=== PATIENT | male | born 1935 | race Two or more races ===

== ENCOUNTER 2023-02-15 13:15 | Emergency (ER) | payer OTHER ==
[~2023-02-15] VITALS: Ht 170.2 cm; Wt 68.1 kg
[2023-02-15 13:30] VITALS: BP_DIAS 79
[2023-02-15 16:38] VITALS: BP_SYST 109; PULSE 76; RESP 18; TEMP 98; O2SAT 97
[2023-02-15] MEDS ORDERED: CEPH250C PO ×2 (16:40)
[2023-02-15] MEDS ORDERED: HYDR-4902 PO ×2 (16:40)
[2023-02-16] MEDS ORDERED: CEPH250C PO (15:18)
[2023-02-16] MEDS ORDERED: HYDR-4902 PO (15:18)
== END 2023-02-15 16:53 | disposition home or self-care (01) ==
LOC: EDBD 13:15 → ER 13:15
DX: G57.93 Unspecified mononeuropathy of bilateral lower limbs (principal); L08.9 Local infection of the skin and subcutaneous tissue, unspecified; I10 Essential (primary) hypertension

== ENCOUNTER 2024-06-22 08:26 | Inpatient (IN) | payer OTHER ==
[~2024-06-22] VITALS: Ht 182.9 cm; Wt 72.4 kg
[~2024-06-22 08:26] MED LIST: CEPH250C PO; ENAL1TAB47 PO; HYDR-4798 PO; HYDR-4902 PO; TRIA37.586 PO
[2024-06-22 09:14] VITALS: PULSE 71; RESP 16; O2SAT 96
[2024-06-22] MEDS: cefTRIAXone 1GM/50ML D5W 50 ML IV ONE (09:45)
[2024-06-22] MEDS: SODIUM CHLORIDE 0.9% 1,000 ML IV ONE ×2 (09:45→11:01)
--- NOTE | 2024-06-22 10:00 | ED.PDOC ---
History of Present Illness HPI Comments 88M BIBA w/ prior MHx of HTN, MS; SHx of Stents and the c/c of Right LE. Pt reports that he fell on Monday abd had trauma on his right LE. Pt started to get right lower extremity swelling and redness. Denies chills, fever, N/V/D, SOB, CP. No other associated symptoms, modifiers, recent injuries or sick contacts present at this time. Chief Complaint: Lower Extremity Time Seen by MD: 09:20 Reviewed Notes: Nurses Notes, Medications, Allergies Allergies: Coded Allergies: NO KNOWN ALLERGIES (Unverified , 02/15/23) Home Meds Active Scripts Cephalexin (KEFLEX CAPSULE) 250 Mg Cp, 1 CAP PO QID for 7 Days, #28 CAP Prov:JALYN MIDDLETON PAC 02/16/23 Hydrocodone-Acetaminophen (Hydrocodone Bitartrate/AC 5-325 mg) 1 Tab Tab, 1 TAB PO Q6HP PRN, #20 TAB Prov:JALYN MIDDLETON PAC 02/16/23 Reported Medications Enalapril Maleate (Enalapril Maleate) 10 Mg Tab, 1 TAB PO DAILY 06/22/24 Allopurinol (Allopurinol) 100 Mg Tab, 1 TAB PO DAILY 06/22/24 Atorvastatin Calcium (ATORVASTATIN CALCIUM) 40 Mg Tab, 1 TAB PO DAILY 06/22/24 Valsartan (Valsartan) 320 Mg Tab, 1 TAB PO DAILY 06/22/24 Metoprolol Tartrate (LOPRESSOR TABLET) 50 Mg Tb, 1 TAB PO BID 06/22/24 Information Source: Patient Mode of Arrival: EMS Severity: Moderate Timing: Weeks Duration: Since onset Prehospital treatment: None Past Medical History PAST MEDICAL HISTORY: HTN, MS Surgical History (Other): Stents Family History Family History: Reviewed,noncontributory to illness, Unknown Social History Smoker: Non-Smoker Alcohol: Denies ETOH Use Drugs: Denies Drug Use Lives In: Home Constitutional: reports: others (Right LE Swelling/redness); denies: chills, diaphoresis, fatigue, fever, malaise, sweats, weakness EENTM: denies: blurred vision, double vision, ear bleeding, ear discharge, ear drainage, ear pain, ear ringing, eye pain, eye redness, hearing loss, mouth pain, mouth swelling, nasal discharge, nose bleeding, nose congestion, nose pain, photophobia, tearing, throat pain, throat swelling, voice changes, others Respiratory: denies: cough, hemoptysis, orthopnea, SOB at rest, shortness of breath, SOB with excertion, stridor, wheezing, others Cardiovascular: denies: chest pain, dizzy spells, diaphoresis, Dyspnea on exertion, edema, irregular heart beat, left arm pain, lightheadedness, palpitations, PND, syncope, others Gastrointestinal: denies: abdomen distended, abdominal pain, blood streaked bowels, constipated, diarrhea, dysphagia, difficulty swallowing, hematemesis, melena, nausea, poor appetite, poor fluid intake, rectal bleeding, rectal pain, vomiting, others Genitourinary: denies: burning, dysuria, flank pain, frequency, hematuria, incontinence, penile discharge, penile sore, pain, testicle pain, testicle swelling, urgency, others Neurological: denies: dizziness, fainting, headache, left sided numbness, left sided weakness, numbness, paresthesia, pre-existing deficit, right sided numbness, right sided weakness, seizure, speech problems, tingling, tremors, weakness, others Musculoskeletal: denies: back pain, gout, joint pain, joint swelling, muscle pain, muscle stiffness, neck pain, others Integumetry: denies: bruises, change in color, change in hair/nails, dryness, laceration, lesions, lumps, rash, wounds, others Allergic/Immunocompromised: denies: Difficulty Healing, Frequent Infections, Hives, Itching, others Hematologic/Lymphatic: denies: anemia, blood clots, easy bleeding, easy bruising, swollen glands, others Endocrine: denies: excessive hunger, excessive sweating, excessive thirst, excessive urination, flushing, intolerance to cold, intolerance to heat, unexplained weight gain, unexplained weight loss, others Psychiatric: denies: anxiety, bipolar disorder, depression, hopeless, panic disorder, schizophrenia, sleepless, suicidal, others All Other Systems: Reviewed and Negative Physical Exam General Appearance: Moderate Distress, Normal HEENT: Normal ENT Inspection, Pharynx Normal, TMs Normal Neck: Full Range of Motion, Non-Tender, Normal, Normal Inspection Respiratory: Chest Non-Tender, Lungs Clear, No Accessory Muscle Use, No Respi ratory Distress, Normal Breath Sounds Cardiovascular: No Edema, No JVD, No Murmur, No Gallop, Normal Peripheral Pulses, Regular Rate/Rhythm Breast Exam: Deferred Gastrointestinal: No Organomegaly, Non Tender, No Pulsatile Mass, Normal Bowel Sounds, Soft Genitalia: Deferred Pelvic: Deferred Rectal: Deferred Extremities: No calf tenderness, Normal capillary refill, Normal inspection, Normal range of motion, Non-tender, No pedal edema Musculoskeletal : Apperance: Normal Neurologic: Alert, label stamper II-XII nml as Tested, No Motor Deficits, Normal Affect, Normal Mood, No Sensory Deficits Cerebellar Function: NOT DONE Reflexes: NOT DONE Skin: Dry, Normal Color, Warm, Wounds (Right lower extremity) Peripheral Pulses: 3+ Radial (R), 3+ Radial (L) Lymphatic: No Adenopathy Was a procedure done? Was a procedure done?: No Differential Dx Considerations may include: Cellulitis Electrolyte imbalance X-Ray, Labs, Meds, VS Vital Signs Date Time Temp Pulse Resp B/P (MAP) Pulse Ox O2 Delivery O2 Flow Rate FiO2 06/22/24 11:01 194/65 06/22/24 10:16 70 16 184/64 06/22/24 09:14 98.1 71 16 160/79 (106) 96 98.1 06/22/24 09:14 71 16 96 Room Air* 0 21 06/22/24 09:14 75 06/22/24 08:59 97.6 73 16 198/75 (116) 95 97.6 Lab Test 06/22/24 09:50 Range/Units White Blood Count 10.7 4.4-10.8 10^3/uL Red Blood Count 4.43 L 4.5-5.90 10^6/uL Hemoglobin 12.9 L 13.5-17.5 g/dL Hematocrit 38.2 L 41.0-53.0 % Mean Corpuscular Volume 86.2 80.0-100.0 fL Mean Corpuscular Hemoglobin 29.0 28.0-32.0 pg Mean Corpuscular Hemoglobin Concent 33.7 32.0-36.0 g/dL Red Cell Distribution Width 15.1 H 11.8-14.3 % Platelet Count 176 140-450 10^3/uL Mean Platelet Volume 8.9 6.9-10.8 fL Neutrophils (%) (Auto) 83.0 H 37.0-80.0 % Lymphocytes (%) (Auto) 7.3 L 10.0-50.0 % Monocytes (%) (Auto) 8.8 0.0-12.0 % Eosinophils (%) (Auto) 0.2 0.0-7.0 % Basophils (%) (Auto) 0.7 0.0-2.0 % Neutrophils # (Auto) 8.9 H 1.6-8.6 10 ^3/uL Lymphocytes # (Auto) 0.8 0.4-5.4 10 ^3/uL Monocytes # (Auto) 0.9 0-1.3 10 ^3/uL Eosinophils # (Auto) 0 0-0.8 10 ^3/uL Basophils # (Auto) 0.1 0-0.2 10 ^3/uL Nucleated Red Blood Cells 0.0 % Erythrocyte Sedimentation Rate 11 0-20 mm/hr Sodium Level 143 136-145 mmol/L Potassium Level 3.6 3.5-5.1 mmol/L Chloride Level 109 H 98-107 mmol/L Carbon Dioxide Level 23 20-31 mmol/L Anion Gap 11 5-15 Blood Urea Nitrogen 18 9-23 mg/dL Creatinine 1.30 0.700-1.30 mg/dL Glomerular Filtration Rate Calc 53 >90 mL/min BUN/Creatinine Ratio 13.8 10.0-20.0 Serum Glucose 114 H 74-106 mg/dL Lactic Acid Level 1.1 0.4-2.0 mmol/L Calcium Level 10.8 H 8.7-10.4 mg/dL C-Reactive Protein High Sensitivity 7.41 H <1.0 mg/dL Current Medications Medications (Trade) Dose Ordered Sig/Armando Route Start Time Stop Time Status Last Admin Ceftriaxone Sodium 50 ml @ 100 mls/hr ONCE ONCE IV 06/22/24 09:45 06/22/24 10:14 DC 06/22/24 09:58 Clindamycin Phosphate 50 ml @ 50 mls/hr ONCE ONCE IV 06/22/24 09:45 06/22/24 10:44 DC 06/22/24 11:01 Sodium Chloride 1,000 ml @ 1,000 mls/hr Q1H ONCE IV 06/22/24 09:45 06/22/24 10:44 DC 06/22/24 09:45 Sodium Chloride 1,000 ml @ 150 mls/hr Q6H40M ONCE IV 06/22/24 09:45 06/22/24 16:24 06/22/24 11:01 Morphine Sulfate 4 mg ONCE ONCE IV 06/22/24 10:00 06/22/24 10:01 DC 06/22/24 10:16 Ondansetron HCl (Zofran) 4 mg ONCE ONCE IV 06/22/24 10:00 06/22/24 10:01 DC 06/22/24 10:15 Hydralazine HCl (Apresoline Injection) 10 mg ONCE ONCE IV 06/22/24 10:45 06/22/24 10:46 DC 06/22/24 11:01 PROCEDURE(s): RFOR - R FOREARM XRAY REASON: s/p fall pain ORDER NUMBER(s): [id number], ACCESSION NUMBER(s): [id number] XY R FOREARM XRAY, INDICATION: s/p fall pain TECHNICAL DATA: Frontal and lateral views were obtained of the right forearm. COMPARISON: None FINDINGS: There is no osseous abnormality. Soft tissues are normal. IMPRESSION: No acute fracture or dislocation. EDURE(s): BLDVT - BiLat Lower DVT REASON: le pain ORDER NUMBER(s): [id number], ACCESSION NUMBER(s): [id number] US BiLat Lower DVT HISTORY: le pain COMPARISON: None TECHNIQUE: Duplex doppler evaluation of the deep venous system of the lower extremity from the common femoral veins, superficial femoral vein, great saphenous vein, deep femoral vein, popliteal vein, and calf veins, including color doppler and spectral/pulsed waveform analysis, was performed. FINDINGS: Right: - Common femoral vein: Compressible - Deep femoral vein: Compressible - Femoral vein: Compressible - Popliteal vein: Compressible - Posterior tibial vein: Waveforms present - Other: Nothing Left: - Common femoral vein: Compressible - Deep femoral vein: Compressible - Femoral vein: Compressible - Popliteal vein: Compressible - Posterior tibial vein: Waveforms present - Other: Nothing IMPRESSION: No right or left lower extremity deep venous thrombosis. EDURE(s): CXR1 - CHEST XRAY 1 VIEW REASON: right rib pain ORDER NUMBER(s): [id number], ACCESSION NUMBER(s): [id number] XY CHEST XRAY 1 VIEW, HISTORY: right rib pain COMPARISON: None None TECHNICAL DATA: 1 view of the chest was obtained. FINDINGS: Lines and tubes: None Cardiomediastinal silhouette: normal Pulmonary vasculature: Prominent Lung expansion: normal Lung airspace: normal Lung interstitium: normal Pleura: normal Pneumothorax: no Bones: Unremarkable Other: no IMPRESSION: Pulmonary vascular congestion. Patient alert. Does have redness of right lower extremity. Vitals stable. Answering all questions. EKG reviewed does not show any acute changes. Establish intravenous access. Was given fluids. Was given Rocephin. Was given clindamycin. Was given morphine for the pain. Was given Zofran. Calcium slightly high. Lactic acid within normal limits. WBC within normal limits. Blood pressure elevated. Was given hydralazine. Reviewed his history. Explained to the patient. Continue monitoring. Time of 1ST Reevaluation: 09:50 Reevaluation 1ST: Unchanged Patient Education/Counseling: Diagnosis, Treatment, Prognosis Family Education/Counseling: No Family Present Departure 1 Departure Time of Disposition: 10:29 Impression: Primary Impression: Hypertensive emergency Additional Impressions: Cellulitis Qualified Codes: L03.115 - Cellulitis of right lower limb Hypercalcemia Disposition: ADMITTED INPATIENT Admit to: Med Surg Condition: Guarded Critical Care Note Critical Care Time?: Yes (90 min-critical care time only) Critical care comment: Blood pressure elevated wound to be monitored for sepsis Stability Stability form required: No Heart Score Heart Score: Heart Score Response (Comments) Value History Slightly Suspicious 0 EKG Normal 0 Age >65 2 Risk Factors >3 or Hx ASHD 2 Troponin Normal limit 0 Total 4 I personally scribed for DUYEN HARRIS MD ([email or web address]) on 06/22/24 at 10:00. Electronically submitted by Danie Deras ([email or web address]). I personally scribed for DUYEN HARRIS MD ([email or web address]) on 06/22/24 at 13:28. Electronically submitted by Danie Deras ([email or web address]). DUYEN HARRIS MD June 22, 2024 10:00
[2024-06-22 10:10] LABS: Potassium 3.6 mmol/L (3.5-5.1); Sodium 143 mmol/L (136-145)
[2024-06-22 10:11] LABS: Anion Gap 11 (5-15); Carbon Dioxide 23 mmol/L (20-31)
[2024-06-22] MEDS: ONDANSETRON HCL 4 MG/2 ML VIAL IV ONE (10:15)
[2024-06-22 10:16] LABS: Basophils # (auto) 0.1 10 ^3/uL (0-0.2); Basophils % (auto) 0.7 % (0.0-2.0); Eosinophils # (auto) 0 10 ^3/uL (0-0.8); Eosinophils % (auto) 0.2 % (0.0-7.0); Hematocrit 38.2 % (41.0-53.0); Hemoglobin 12.9 g/dL (13.5-17.5); Lymphocytes # (auto) 0.8 10 ^3/uL (0.4-5.4); Lymphocytes % (auto) 7.3 % (10.0-50.0); Mean Corpuscular Hgb Conc. 33.7 g/dL (32.0-36.0); Mean Corpuscular Volume 86.2 fL (80.0-100.0); Monocytes # (auto) 0.9 10 ^3/uL (0-1.3); Monocytes % (auto) 8.8 % (0.0-12.0); Neutrophils # (auto) 8.9 10 ^3/uL (1.6-8.6); Platelet Count (auto) 176 10^3/uL (140-450); Red Blood Cells 4.43 10^6/uL (4.5-5.90); Red Cell Distribution Width 15.1 % (11.8-14.3); White Blood Cell 10.7 10^3/uL (4.4-10.8)
[2024-06-22] MEDS: MORPHINE SULFATE 4 MG/ML SYR/VIAL IV ONE (10:16)
[2024-06-22 10:17] LABS: BUN/Creatinine Ratio 13.8 (10.0-20.0); Blood Urea Nitrogen 18 mg/dL (9-23)
[2024-06-22 10:18] LABS: Calcium 10.8 mg/dL (8.7-10.4); Chloride 109 mmol/L (98-107); Glucose 114 mg/dL (74-106)
[2024-06-22] MEDS: CLINDAMYCIN 600MG IV 50 ML IV ONE (11:01)
[2024-06-22] MEDS: hydrALAZINE HCL 20 MG/ML VL IV ONE (11:01)
[2024-06-22] MEDS ORDERED: VALS1TAB59 PO (11:15)
[2024-06-22] MEDS ORDERED: MET50T PO (11:15)
[2024-06-22] MEDS ORDERED: ATOR40TA52 PO (11:15)
[2024-06-22] MEDS ORDERED: ALLO100T PO (11:15)
--- NOTE | 2024-06-22 11:16 | DVHHP2 ---
History of Present Illness Reason for Visit: Right lower extremity pain History of Present Illness Joshua Cordova is an 88-year-old male with past medical history of [place], hypertension, [place], and PTCA x1 in January of 2012 at [facility] who presents to the ED with right lower extremity pain and swelling since Monday. He reports that he was sitting on a chair while his grandkids replying around him and from what he remembers he fell to the ground. He is also complaining of right rib pain and right forearm pain. Patient reports that he has hearing aids but is currently not wearing it. His leg pain is currently 6/10 and constant that he reports. Patient reports that he lives alone. He denies any chest pain, shortness of breath, fever, chills, lightheadedness, weakness, dizziness, recent sick contacts, recent travels, recent ingestion of spoiled food, abdominal pain, nausea, vomiting, or diarrhea. Patient also endorses that he is able to ambulate without any DMEs. Cardiovascular: HTN, IA Past Surgical History: Other (PTCA x1 in January of 2012 at [facility]) Smoke: No ALCOHOL: none Drugs: None Lives: Alone Domestic Violence: Neg Review of Systems Musculoskeletal: arm pain, leg pain Other Right rib pain Allergies: Coded Allergies: NO KNOWN ALLERGIES (Unverified , 02/15/23) Medications Current Medications Medications Dose Ordered Sig/Armando Route Start Time Stop Time Status Last Admin Dose Admin Acetaminophen/ Hydrocodone Bitart 1 tab Q4HP PRN PO 06/22/24 11:15 UNV Ondansetron HCl 4 mg Q4HP PRN IV 06/22/24 11:15 UNV Enoxaparin Sodium 40 mg DAILY SC 06/23/24 10:00 UNV Exam Vital Signs Vital Signs Date Time Temp Pulse Resp B/P (MAP) Pulse Ox O2 Delivery O2 Flow Rate FiO2 06/22/24 11:01 194/65 06/22/24 10:16 70 16 06/22/24 08:59 97.6 95 97.6 General Appearance: Alert, Oriented X3, Cooperative, No acute distress HEENT: Atraumatic, PERRLA, EOMI, Mucous membr. moist/pink Respiratory: Clear to auscultation, Normal air movement Cardiovascular: Normal S1, Normal S2, No murmurs Abdominal: Normal bowel sounds, Soft, No tenderness, No hepatospenomegaly, No masses Neuro: Normal speech, Normal tone, Sensation intact Psych/Mental Status: Mental status NL, Mood NL Labs/Xrays Labs Test 06/22/24 09:50 Range/Units White Blood Count 10.7 4.4-10.8 10^3/uL Red Blood Count 4.43 L 4.5-5.90 10^6/uL Hemoglobin 12.9 L 13.5-17.5 g/dL Hematocrit 38.2 L 41.0-53.0 % Mean Corpuscular Volume 86.2 80.0-100.0 fL Mean Corpuscular Hemoglobin 29.0 28.0-32.0 pg Mean Corpuscular Hemoglobin Concent 33.7 32.0-36.0 g/dL Red Cell Distribution Width 15.1 H 11.8-14.3 % Platelet Count 176 140-450 10^3/uL Mean Platelet Volume 8.9 6.9-10.8 fL Neutrophils (%) (Auto) 83.0 H 37.0-80.0 % Lymphocytes (%) (Auto) 7.3 L 10.0-50.0 % Monocytes (%) (Auto) 8.8 0.0-12.0 % Eosinophils (%) (Auto) 0.2 0.0-7.0 % Basophils (%) (Auto) 0.7 0.0-2.0 % Neutrophils # (Auto) 8.9 H 1.6-8.6 10 ^3/uL Lymphocytes # (Auto) 0.8 0.4-5.4 10 ^3/uL Monocytes # (Auto) 0.9 0-1.3 10 ^3/uL Eosinophils # (Auto) 0 0-0.8 10 ^3/uL Basophils # (Auto) 0.1 0-0.2 10 ^3/uL Nucleated Red Blood Cells 0.0 % Sodium Level 143 136-145 mmol/L Potassium Level 3.6 3.5-5.1 mmol/L Chloride Level 109 H 98-107 mmol/L Carbon Dioxide Level 23 20-31 mmol/L Anion Gap 11 5-15 Blood Urea Nitrogen 18 9-23 mg/dL Creatinine 1.30 0.700-1.30 mg/dL Glomerular Filtration Rate Calc 53 >90 mL/min BUN/Creatinine Ratio 13.8 10.0-20.0 Serum Glucose 114 H 74-106 mg/dL Lactic Acid Level 1.1 0.4-2.0 mmol/L Calcium Level 10.8 H 8.7-10.4 mg/dL Assessment/Plan Assessment/Plan Assessment Right lower extremity pain rule out cellulitis versus DVT Hypertensive urgency History of [place] status post PTCA x1 on January 19, 2012 at [facility] Plan Admit to [facility] Antihypertensives IV antibiotics-clindamycin + ceftriaxone Antiemetics Pain management NS 2 L given ED Lactic level ESR CRP Blood cultures UA Chest x-ray ordered X-ray of right forearm Ultrasound lower extremity venous Wound culture Diet Home medications reconciled DVT prophylaxis-Lovenox PUD prophylaxis-not indicated no history of GERD or GI bleed Discussed plan of care with patient and nurse Plan discussed with: Patient My Orders Orders - BRIAN JEAN Procedure Category Date Status Time Chest Xray 1 View XY 06/22/24 Logged 11:12 Bilat Lower Dvt US 06/22/24 Logged 11:12 Wound Culture W/ Gs ARCENIO 06/22/24 Logged 11:12 R Forearm Xray XY 06/22/24 Logged 11:12 Admit ADMIT 06/22/24 Transmitted 11:12 Allergies HEATH 06/22/24 In Process 11:12 Code Status CODE 06/22/24 Transmitted 11:12 Hydrocodone-Acet PHA 06/22/24 Transmitted 5/325mg Tab ([place] 11:15 Ondansetron Hcl PHA 06/22/24 Transmitted (Zofran) 11:15 Enoxaparin Sodium PHA 06/23/24 Transmitted (Lovenox) 10:00 Complete Blood Count LAB 06/23/24 Verified 04:00 Comprehensive LAB 06/23/24 Verified Metabolic Panel 04:00 Cardiac DIET 06/22/24 Transmitted Diet-2gna,Lofat,Lochol Lunch Acetaminophen Tablet PHA 06/22/24 Transmitted (Tylenol Tablet) 11:15 Date of Service: June 22, 2024 Billing Provider: BRIAN JEAN Common Visit Codes: [id number] INP/OBS CARE (HIGH) BRIAN JEAN June 22, 2024 11:15
--- NOTE | 2024-06-22 11:52 | DVH ---
XY CHEST XRAY 1 VIEW, HISTORY: right rib pain COMPARISON: None None TECHNICAL DATA: 1 view of the chest was obtained. FINDINGS: Lines and tubes: None Cardiomediastinal silhouette: normal Pulmonary vasculature: Prominent Lung expansion: normal Lung airspace: normal Lung interstitium: normal Pleura: normal Pneumothorax: no Bones: Unremarkable Other: no IMPRESSION: Pulmonary vascular congestion.
--- NOTE | 2024-06-22 11:53 | DVH ---
XY R FOREARM XRAY, INDICATION: s/p fall pain TECHNICAL DATA: Frontal and lateral views were obtained of the right forearm. COMPARISON: None FINDINGS: There is no osseous abnormality. Soft tissues are normal. IMPRESSION: No acute fracture or dislocation.
[2024-06-22] MEDS: VALSARTAN 80 MG TAB PO SCH (11:55)
[2024-06-22] MEDS: HYDROcodone-ACET 5/325MG TAB PO PRN (11:55)
--- NOTE | 2024-06-22 12:01 | DVH ---
US BiLat Lower DVT HISTORY: le pain COMPARISON: None TECHNIQUE: Duplex doppler evaluation of the deep venous system of the lower extremity from the common femoral veins, superficial femoral vein, great saphenous vein, deep femoral vein, popliteal vein, an d calf veins, including color doppler and spectral/pulsed waveform analysis, was performed. FINDINGS: Right: - Common femoral vein: Compressible - Deep femoral vein: Compressible - Femoral vein: Compressible - Popliteal vein: Compressible - Posterior tibial vein: Waveforms present - Other: Nothing Left: - Common femoral vein: Compressible - Deep femoral vein: Compressible - Femoral vein: Compressible - Popliteal vein: Compressible - Posterior tibial vein: Waveforms present - Other: Nothing IMPRESSION: No right or left lower extremity deep venous thrombosis.
[2024-06-22 12:24] LABS: Erythrocyte Sedimentation Rate 11 mm/hr (0-20)
[2024-06-22] MEDS: METOPROLOL TARTRATE 1MG/1ML-5ML VIAL IV ONE (13:10)
[2024-06-22 14:53] VITALS: PULSE 72; RESP 18; O2SAT 95
[2024-06-22 15:21] VITALS: BP 165/56; PULSE 71; TEMP 98.7; O2SAT 95
[2024-06-22] MEDS ORDERED: BIMA0.01 EACHEYE (15:59)
[2024-06-22] MEDS ORDERED: hydrALAZINE HCL 20 MG/ML VL IV PRN (16:00)
[2024-06-22] MEDS: hydrALAZINE HCL 20 MG/ML VL IV PRN (17:31)
[2024-06-22 19:30] VITALS: PULSE 73; RESP 17; O2SAT 95
[2024-06-22 21:08] VITALS: BP 160/50; PULSE 73; RESP 18; TEMP 98.4; O2SAT 98
[2024-06-22] MEDS: ATORVASTATIN 20 MG TAB PO SCH (22:30)
[2024-06-22] MEDS: METOPROLOL TARTRATE 50 MG TAB PO SCH (22:31)
[2024-06-22] MEDS: CLINDAMYCIN 600MG IV 50 ML IV SCH (22:32)
[2024-06-23] VITALS (10 sets, daily range): BP systolic 153–173; BP diastolic 49–88; PULSE 61–79; RESP 16–18; TEMP 98.2–98.6; O2SAT 93–99
[2024-06-23 06:03] LABS: Basophils # (auto) 0.1 10 ^3/uL (0-0.2); Basophils % (auto) 0.5 % (0.0-2.0); Eosinophils # (auto) 0 10 ^3/uL (0-0.8); Eosinophils % (auto) 0.2 % (0.0-7.0); Hematocrit 33.8 % (41.0-53.0); Hemoglobin 11.4 g/dL (13.5-17.5); Lymphocytes # (auto) 0.7 10 ^3/uL (0.4-5.4); Lymphocytes % (auto) 7.2 % (10.0-50.0); Mean Corpuscular Hemoglobin 29.3 pg (28.0-32.0); Mean Corpuscular Hgb Conc. 33.8 g/dL (32.0-36.0); Mean Corpuscular Volume 86.7 fL (80.0-100.0); Monocytes % (auto) 9.7 % (0.0-12.0); Neutrophils # (auto) 8.6 10 ^3/uL (1.6-8.6); Neutrophils % (auto) 82.4 % (37.0-80.0); Platelet Count (auto) 152 10^3/uL (140-450); Red Blood Cells 3.91 10^6/uL (4.5-5.90); Red Cell Distribution Width 14.9 % (11.8-14.3); White Blood Cell 10.4 10^3/uL (4.4-10.8)
[2024-06-23 06:13] LABS: Alanine Aminotransferase 18 U/L (7-40); Albumin 3.5 g/dL (3.2-4.8); Alkaline Phosphatase 76 U/L (46-116); Anion Gap 9 (5-15); Aspartate Aminotransferase 28 U/L (13-40); BUN/Creatinine Ratio 13.4 (10.0-20.0); Blood Urea Nitrogen 17 mg/dL (9-23); Calcium 9.8 mg/dL (8.7-10.4); Carbon Dioxide 22 mmol/L (20-31); Sodium 139 mmol/L (136-145)
[2024-06-23 06:16] LABS: Bilirubin, Total 1.8 mg/dL (0.2-1.0); Chloride 108 mmol/L (98-107); Glucose 120 mg/dL (74-106); Potassium 3.4 mmol/L (3.5-5.1); Total Protein 5.5 g/dL (5.7-8.2)
[2024-06-23] MEDS: cefTRIAXone 1GM/50ML D5W 50 ML IV SCH (07:45)
[2024-06-23] MEDS: ALLOPURINOL 100 MG TAB PO SCH (07:46)
[2024-06-23] MEDS: ENOXAPARIN SOD 40 MG/0.4 ML SYRINGE SC SCH (07:46)
[2024-06-23] MEDS ORDERED: ENALAPRIL MALEATE 10 MG TAB PO SCH (10:00)
--- NOTE | 2024-06-23 12:04 | DVHPN2 ---
Subjective 88-year-old male who apparently fell about a week ago and injured his right miguel and then he developed swelling and redness of his leg that is spread until he came here yesterday Changes from previous H/P or p: Changes Musculoskeletal: arm pain, leg pain Objective Vitals Vital Signs Date Time Temp Pulse Resp B/P (MAP) Pulse Ox O2 Delivery O2 Flow Rate FiO2 06/23/24 10:18 68 159/88 06/23/24 08:00 17 95 Room Air* 0 21 06/23/24 05:00 98.6 98.6 Intake/Output Intake and Output 06/23/24 07:00 Intake Total 2101 ml Balance 2101 ml Intake Oral 401 ml IV Total 1700 ml # Voids 1 General Appearance: Alert, Oriented X3, Cooperative Extremities: Other (Right lower extremity with redness and swelling around the miguel area down to the ankleBilateral 2+ edema ) Medications Current Medications Medications Dose Ordered Sig/Armando Route Start Time Stop Time Status Last Admin Dose Admin Acetaminophen/ Hydrocodone Bitart 1 tab Q4HP PRN PO 06/22/24 11:15 06/23/24 04:17 1 TAB Ondansetron HCl 4 mg Q4HP PRN IV 06/22/24 11:15 Enoxaparin Sodium 40 mg DAILY SC 06/23/24 10:00 06/23/24 07:46 40 MG Acetaminophen 650 mg Q6HP PRN PO 06/22/24 11:15 Allopurinol 100 mg DAILY PO 06/23/24 10:00 06/23/24 07:46 100 MG Metoprolol Tartrate 50 mg BID PO 06/22/24 22:00 06/23/24 07:46 50 MG Atorvastatin Calcium 40 mg HS PO 06/22/24 22:00 06/22/24 22:30 40 MG Valsartan 320 mg DAILY PO 06/22/24 11:48 06/23/24 07:46 320 MG Clindamycin Phosphate 50 ml @ 50 mls/hr Q8HR IV 06/22/24 22:00 06/23/24 05:35 50 MLS/HR Ceftriaxone Sodium 50 ml @ 100 mls/hr DAILY@09 IV 06/23/24 09:00 06/23/24 07:45 100 MLS/HR Hydralazine HCl 10 mg Q6HPRN PRN IV 06/22/24 16:15 06/22/24 17:31 10 MG Patient Own Medication 1 HS EACHEYE 06/23/24 22:00 Laboratory Results Laboratory Tests 06/23/24 05:37 Chemistry Test 06/23/24 05:37 Albumin 3.5 g/dL (3.2-4.8) Calcium Level 9.8 mg/dL (8.7-10.4) Total Protein 5.5 g/dL (5.7-8.2) L LFT Test 06/23/24 05:37 Alanine Aminotransferase (ALT) 18 U/L (7-40) Alkaline Phosphatase 76 U/L (46-116) Aspartate Amino Transferase (AST) 28 U/L (13-40) Total Bilirubin 1.8 mg/dL (0.2-1.0) H Microbiology Microbiology Date/Time Source Procedure Growth Status 06/22/24 14:30 Leg Right Gram Stain - Final Resulted 06/22/24 14:30 Leg Right Wound Culture - Preliminary Resulted 06/22/24 09:50 Blood Blood Culture - Preliminary NO GROWTH AFTER 24 HOURS OF INCUBATION. Resulted Assessment/Plan Assessment/Plan Right lower extremity cellulitis Bilateral lower extremity edema rule out heart failure Hypertension History of coronary artery disease Rule out heart failure Hard of hearing Hypokalemia Plan IV antibiotics Rocephin and vancomycin Start IV Lasix Get an echocardiogram Monitor the high blood pressure Metoprolol and valsartan Discussed with the POA at the bedside Full code Plan discussed with: Patient My Orders Orders - CHONG CANADA MD Procedure Category Date Status Time Patients Own PHA 06/23/24 In Process Medication 22:00 Date of Service: June 23, 2024 Billing Provider: CHONG CANADA MD Common Visit Codes: NOT BILLABLE CHONG CANADA MD June 23, 2024 12:04
[2024-06-23] MEDS ORDERED: VANCOMYCIN PER PHARMACY 0 MG IV SCH (12:15)
[2024-06-23] MEDS: POTASSIUM CHL 20 Meq TABLET PO ONE (12:41)
[2024-06-23] MEDS: FUROSEMIDE 20 MG/2 ML VIAL IV ONE (12:41)
[2024-06-23] MEDS: VANCOMYCIN 1GM/200ML PM 200 ML IV ONE (12:42)
[2024-06-23] MEDS: HYDROcodone-ACET 10/325MG TAB PO PRN (14:28)
[2024-06-23] MEDS: FUROSEMIDE 20 MG/2 ML VIAL IV SCH (16:35)
[2024-06-23] MEDS: hydrALAZINE HCL 20 MG/ML VL IV ONE (17:54)
[2024-06-23] MEDS: LUMIGAN 0.01% OPTH SOLN EACHEYE SCH (21:17)
--- NOTE | 2024-06-24 00:57 | DVHSR ---
APPROVED REPORT EXAM: Two-dimensional and M-mode echocardiogram with Doppler and color Doppler. Blood Pressure: 159/88 mmHg INDICATION Edema RISK FACTORS Height: 6'0", Weight: 163 DIMENSIONS LVDd3.7 (3.8-5.7cm)LA (2D)3.2 (1.9-4.0cm)Aortic Root3.3 (2.0-3.7cm) LVDs2.6 (2.5-4.0cm)LA (MM) (1.9-4.0cm)Aortic Cusp Exc1.1 (1.5-2.0cm) EF (%) 55.0 (55-70%)Rt. Atrium3.1 (1.9-4.0cm)Asc. Aorta cm IVSd0.9 (0.7-1.1cm)RV (D)3.7 (1.8-2.4cm) PWd0.8 (0.7-1.1cm) Mitral Valve MitralMitral Stenosis E wave1.11m/sMV Mean GR.mmHg A wave1.19m/sMV Peak GR.mmHg E/A ratio0.92D MVAcm2 DECEL [id number] 1/2 Tim[place] Aortic Valve Aortic ValveAortic Stenosis V11.07m/El Mean GR.17mmHg V22.95m/El Peak GR.35mmHg LVOT Diameter2.0 (1.8-2.4cm)Doppler AVA1.14cm2 Pulmonic Valve V21.16m/s Tricuspid Valve TR Velocity4.26m/s [id number] Other Information Quality : LimitedRhythm : Technically limited study due to body habitus and patient position. 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
[2024-06-24 01:00] VITALS: BP 157/57; PULSE 60; RESP 18; TEMP 98; O2SAT 95
[2024-06-24 05:00] VITALS: BP 160/60; PULSE 65; RESP 18; TEMP 98.1; O2SAT 97
--- NOTE | 2024-06-24 08:39 | ECG ---
[facility] Test Date: 2024-06-23 Test Time: 19:00:41 Pat Name: HOWARD SANDS Department: Room: 0273T B Gender: M Director Of Critical Care: laurie audra : 1935 Requested By: CHONG CANADA Order Number: [id number] Reading MD: Jacob Ramos Measurements Intervals [place] Rate: 106 P: 91 [place]: 200 QRS: 71 QRSD: 74 T: 259 QT: 315 QTc: 419 Interpretive Statements Sinus tachycardia Multiple premature complexes, vent & supraven Repol abnrm suggests ischemia, diffuse leads Electronically Signed On 06-26-2024 11:57:36 PDT by Jacob Ramos Please click the below link to view image of tracing.
[2024-06-24 09:00] VITALS: BP 161/52; PULSE 81; RESP 18; TEMP 98.1; O2SAT 92
[2024-06-24 09:35] LABS: Basophils # (auto) 0.1 10 ^3/uL (0-0.2); Basophils % (auto) 0.8 % (0.0-2.0); Eosinophils # (auto) 0 10 ^3/uL (0-0.8); Eosinophils % (auto) 0.1 % (0.0-7.0); Hematocrit 38.1 % (41.0-53.0); Hemoglobin 12.7 g/dL (13.5-17.5); Lymphocytes # (auto) 0.9 10 ^3/uL (0.4-5.4); Lymphocytes % (auto) 6.8 % (10.0-50.0); Mean Corpuscular Hemoglobin 28.6 pg (28.0-32.0); Mean Corpuscular Hgb Conc. 33.4 g/dL (32.0-36.0); Mean Corpuscular Volume 85.6 fL (80.0-100.0); Monocytes % (auto) 8.1 % (0.0-12.0); Neutrophils # (auto) 10.5 10 ^3/uL (1.6-8.6); Neutrophils % (auto) 84.2 % (37.0-80.0); Platelet Count (auto) 189 10^3/uL (140-450); Red Blood Cells 4.45 10^6/uL (4.5-5.90); Red Cell Distribution Width 15.1 % (11.8-14.3); White Blood Cell 12.5 10^3/uL (4.4-10.8)
[2024-06-24 09:52] LABS: Alanine Aminotransferase 24 U/L (7-40); Albumin 3.9 g/dL (3.2-4.8); Alkaline Phosphatase 87 U/L (46-116); Anion Gap 13 (5-15); Aspartate Aminotransferase 31 U/L (13-40); BUN/Creatinine Ratio 13.8 (10.0-20.0); Blood Urea Nitrogen 18 mg/dL (9-23); Calcium 10.3 mg/dL (8.7-10.4); Carbon Dioxide 23 mmol/L (20-31); Chloride 104 mmol/L (98-107); Cholesterol 82 mg/dL (< 200); Glucose 169 mg/dL (74-106); HDL Cholesterol 36 mg/dL (40-59); LDL Cholesterol 26 mg/dL (< 100); Magnesium 1.6 mg/dL (1.6-2.6); Potassium 3.1 mmol/L (3.5-5.1); Sodium 140 mmol/L (136-145); Total Protein 6.2 g/dL (5.7-8.2); Triglycerides 89 mg/dL (< 150)
[2024-06-24 09:54] LABS: Bilirubin, Total 1.5 mg/dL (0.2-1.0)
[2024-06-24] MEDS: VANCOMYCIN 1GM/200ML PM 200 ML IV SCH (12:07)
[2024-06-24 13:00] VITALS: BP 160/56; PULSE 67; RESP 16; TEMP 98.1; O2SAT 96
[2024-06-24] MEDS: MAGNESIUM SULFATE 1GM/100ML 100 ML IV SCH (13:00)
--- NOTE | 2024-06-24 13:30 | DVHINCON2 ---
ARLETTE MONIQUE [facility] 06/24/24 1330: Date Seen: June 24, 2024 Referring Physician CHEIKH Hurst Reason for Consultation Chest pain History of Present Illness This is an 88-year-old male with past medical history of hypertension, CAD (status post PCI in 2011 with placement of a stent at LAD), came to the hospital due to right leg swelling and pain since Monday. He reports of a ground level fall from the chair, injured his right lower limb at the level of the miguel, subsequently developed right lower limb pain and swelling, progressively worsened which prompted this visit. He also complained of right lower limb pain. Upon admission, he denied any chest pain, shortness of breath, fever, cough, palpitation. Last night, he developed an episode of chest pain while he was lying on the bed which lasted for 15 minutes. Pain localized at left-sided upper chest, radiated to the right-sided, described as burning, 4/10 in severity, with no clear exacerbating or relieving factor. He also developed nausea and an episode of vomiting. Since last night, he did not have any other episode of chest pain. PMHx: hypertension, CAD (status post PCI in 2011 with placement of a stent at LAD), gout PSHx: PCI in 2011 with placement of a stent at LAD Family history: Noncontributory Social history: Denies smoking, alcohol or any other drug use Home medication: Lopressor 50 mg, valsartan 320 mg, atorvastatin 40 mg, allopurinol 100 mg, enalapril Allergic history: No known allergy Patient seen and examined at the bedside. Patient is complaining of right lower limb pain. Currently denies any chest pain or shortness of Breath. Past Medical History Per H&P Past Surgical History Per H&P Family History: Patient reports no known family medical history. Family History Per H&P Social History Per H&P Allergies: Coded Allergies: NO KNOWN ALLERGIES (Unverified , 02/15/23) Allergies No known allergy Home Meds Active Scripts Cephalexin (KEFLEX CAPSULE) 250 Mg Cp, 1 CAP PO QID for 7 Days, #28 CAP Prov:JALYN MIDDLETON PAC 02/16/23 Hydrocodone-Acetaminophen (Hydrocodone Bitartrate/AC 5-325 mg) 1 Tab Tab, 1 TAB PO Q6HP PRN, #20 TAB Prov:JALYN MIDDLETON PAC 02/16/23 Reported Medications Hydrocodone-Acetaminophen (Hydrocodone Bitartrate/AC 10-325 mg) 1 Tab Tab, 1 TAB PO Q6HPRN PRN for PAIN SCALE 7 THRU 10, TAB 06/22/24 Bimatoprost (Lumigan) 0.01 % Zarina, 1 DROP EACHEYE QPM, #7.5 ML 3 Refills 06/22/24 Allopurinol (Allopurinol) 100 Mg Tab, 1 TAB PO DAILY 06/22/24 Atorvastatin Calcium (ATORVASTATIN CALCIUM) 40 Mg Tab, 1 TAB PO DAILY 06/22/24 Valsartan (Valsartan) 320 Mg Tab, 1 TAB PO DAILY 06/22/24 Metoprolol Tartrate (LOPRESSOR TABLET) 50 Mg Tb, 1 TAB PO BID 06/22/24 Discontinued Reported Medications Enalapril Maleate (Enalapril Maleate) 10 Mg Tab, 1 TAB PO DAILY 06/22/24 Current Medications Current Medications Medications (Trade) Dose Ordered Sig/Armando Route PRN Reason Start Time Stop Time Status Last Admin Patient Own Medication 1 HS EACHEYE 06/23/24 22:00 Furosemide (Lasix Injection) 20 mg BIDD IV 06/23/24 18:00 06/24/24 06:14 Vancomycin HCl 200 ml @ 200 mls/hr DAILY@1300 IV 06/24/24 13:00 06/24/24 12:07 Magnesium Sulfate/ Dextrose 100 ml @ 100 mls/hr Q1HR IV 06/24/24 12:00 06/24/24 13:59 Review of Systems Per H&P Vital Signs Vital Signs Date Time Temp Pulse Resp B/P (MAP) Pulse Ox O2 Delivery O2 Flow Rate FiO2 06/24/24 10:02 75 158/75 06/24/24 09:00 98.1 18 92 98.1 06/24/24 08:19 Room Air* 0 21 Physical Exam General Appearance: Alert, Oriented X3, Cooperative, No acute distress HEENT: Atraumatic, PERRLA, EOMI, Mucous membrane moist/pink Respiratory: Clear to auscultation, Normal air movement Cardiovascular: Regular rate, Normal S1, Normal S2, No murmurs, no chest wall tenderness Abdominal: Normal bowel sounds, Soft, No tenderness, No hepatospenomegaly, No masses Extremities: No clubbing, No cyanosis, No edema, Normal pulses, No tenderness/swelling Skin: Right lower limb is swollen and red, with a 2X3 cm black eschar at the level of right mid miguel Neuro: Normal gait, Normal speech, Strength at 5/5 X4 ext, Normal tone, Sensation intact, Cranial nerves 3-12 NL, Reflexes 2+ Psych/Mental Status: Mental status NL, Mood NL Labs/Diagnostic Data Labs Test 06/24/24 09:12 06/22/24 09:50 Range/Units White Blood Count 12.5 H 4.4-10.8 10^3/uL Red Blood Count 4.45 L 4.5-5.90 10^6/uL Hemoglobin 12.7 L 13.5-17.5 g/dL Hematocrit 38.1 #L 41.0-53.0 % Mean Corpuscular Volume 85.6 80.0-100.0 fL Mean Corpuscular Hemoglobin 28.6 28.0-32.0 pg Mean Corpuscular Hemoglobin Concent 33.4 32.0-36.0 g/dL Red Cell Distribution Width 15.1 H 11.8-14.3 % Platelet Count 189 140-450 10^3/uL Mean Platelet Volume 9.1 6.9-10.8 fL Neutrophils (%) (Auto) 84.2 H 37.0-80.0 % Lymphocytes (%) (Auto) 6.8 L 10.0-50.0 % Monocytes (%) (Auto) 8.1 0.0-12.0 % Eosinophils (%) (Auto) 0.1 0.0-7.0 % Basophils (%) (Auto) 0.8 0.0-2.0 % Neutrophils # (Auto) 10.5 H 1.6-8.6 10 ^3/uL Lymphocytes # (Auto) 0.9 0.4-5.4 10 ^3/uL Monocytes # (Auto) 1.0 0-1.3 10 ^3/uL Eosinophils # (Auto) 0 0-0.8 10 ^3/uL Basophils # (Auto) 0.1 0-0.2 10 ^3/uL Nucleated Red Blood Cells 0.0 % Sodium Level 140 136-145 mmol/L Potassium Level 3.1 L 3.5-5.1 mmol/L Chloride Level 104 98-107 mmol/L Carbon Dioxide Level 23 20-31 mmol/L Anion Gap 13 5-15 Blood Urea Nitrogen 18 9-23 mg/dL Creatinine 1.30 0.700-1.30 mg/dL Glomerular Filtration Rate Calc 53 >90 mL/min BUN/Creatinine Ratio 13.8 10.0-20.0 Serum Glucose 169 H 74-106 mg/dL Calcium Level 10.3 8.7-10.4 mg/dL Magnesium Level 1.6 1.6-2.6 mg/dL Total Bilirubin 1.5 H 0.2-1.0 mg/dL Aspartate Amino Transferase (AST) 31 13-40 U/L Alanine Aminotransferase (ALT) 24 7-40 U/L Alkaline Phosphatase 87 46-116 U/L Total Protein 6.2 5.7-8.2 g/dL Albumin 3.9 3.2-4.8 g/dL Triglycerides Level 89 < 150 mg/dL Cholesterol Level 82 < 200 mg/dL LDL Cholesterol 26 < 100 mg/dL HDL Cholesterol 36 L 40-59 mg/dL Erythrocyte Sedimentation Rate 11 0-20 mm/hr Lactic Acid Level 1.1 0.4-2.0 mmol/L C-Reactive Protein High Sensitivity 7.41 H <1.0 mg/dL Microbiology Date/Time Source Procedure Growth Status 06/22/24 14:30 Leg Right Gram Stain - Final Complete 06/22/24 14:30 Wound Culture - Final Enterococcus faecalis Complete 06/22/24 09:50 Blood Blood Culture - Preliminary NO GROWTH AFTER 48 HOURS OF INCUBATION. Resulted Assessment Chest pain, likely due to NSTEMI/severe aortic stenosis NSTEMI, likely type 1 Acute on chronic diastolic heart failure Hypertensive emergency History of CAD (status post PCI in 2011 with placement of a stent at LAD) Critical pulmonary hypertension Critical aortic stenosis Ruled out PAD/DVT Right lower limb cellulitis/? Abscess Sepsis, likely due to above Hypokalemia Hypomagnesemia * Echo shows, moderate LVH with moderate degree LV diastolic dysfunction (LVEF 65%), critical aortic stenosis and heavily calcified, possible pulmonary hypertension with RVSP 81 * EKG shows, diffuse ST depression, mildly elevated ST segment at aVR, and occasional PVCs * Troponin is raised at 1228 and BNP is raised at 846 * Duplex ultrasound of right lower limb does not show hemodynamically significant stenosis Plan/Recommendation (Case discussed with Dr. Estes) * Continue Lasix 20 mg b.i.d., metoprolol and valsartan 320 mg * Hydralazine 10 mg p.r.n. for blood pressure * Started aspirin and Plavix * Follow up with Cardiology on outpatient basis for critical aortic stenosis/CAD once sepsis/cellulitis improved * Keep K above 4, and Mag above 2 * We will follow the patient Thank you for allowing us to participate in this patient's care. Please call if you have any questions or concerns. Plan discussed with: Patient, Other (RN) NYHA Physical activity limitations: NA Date of Service: June 24, 2024 Billing Provider: POLO ESTES MD Cardiology Common Codes: [id number] INP/OBS CARE (High) POLO ESTES MD 06/25/24 1626: Family History: Patient reports no known family medical history. Allergies: Coded Allergies: NO KNOWN ALLERGIES (Unverified , 02/15/23) Home Meds Active Scripts Cephalexin (KEFLEX CAPSULE) 250 Mg Cp, 1 CAP PO QID for 7 Days, #28 CAP Prov:JALYN MIDDLETON PAC 02/16/23 Hydrocodone-Acetaminophen (Hydrocodone Bitartrate/AC 5-325 mg) 1 Tab Tab, 1 TAB PO Q6HP PRN, #20 TAB Prov:JALYN MIDDLETON PAC 02/16/23 Reported Medications Hydrocodone-Acetaminophen (Hydrocodone Bitartrate/AC 10-325 mg) 1 Tab Tab, 1 TAB PO Q6HPRN PRN for PAIN SCALE 7 THRU 10, TAB 06/22/24 Bimatoprost (Lumigan) 0.01 % Zarina, 1 DROP EACHEYE QPM, #7.5 ML 3 Refills 06/22/24 Allopurinol (Allopurinol) 100 Mg Tab, 1 TAB PO DAILY 06/22/24 Atorvastatin Calcium (ATORVASTATIN CALCIUM) 40 Mg Tab, 1 TAB PO DAILY 06/22/24 Valsartan (Valsartan) 320 Mg Tab, 1 TAB PO DAILY 06/22/24 Metoprolol Tartrate (LOPRESSOR TABLET) 50 Mg Tb, 1 TAB PO BID 06/22/24 Discontinued Reported Medications Enalapril Maleate (Enalapril Maleate) 10 Mg Tab, 1 TAB PO DAILY 06/22/24 Plan/Recommendation agree with cV team assessment and plan pt seen with cv team discussed nstemi and aortic stenosis and his living room ate of 40 years cont conservative tx no severe pad noted ARLETTE MONIQUE June 24, 2024 13:30 POLO ESTES MD June 25, 2024 16:26
--- NOTE | 2024-06-24 13:36 | DVHPN2 ---
Subjective Less edema and erythema Echocardiogram showed diastolic dysfunction with aortic stenosis and severe pulmonary hypertension Changes from previous H/P or p: Changes Musculoskeletal: arm pain, leg pain Objective Vitals Vital Signs Date Time Temp Pulse Resp B/P (MAP) Pulse Ox O2 Delivery O2 Flow Rate FiO2 06/24/24 10:02 75 158/75 06/24/24 09:00 98.1 18 92 98.1 06/24/24 08:19 Room Air* 0 21 Intake/Output Intake and Output 06/24/24 07:00 Intake Total 651 ml Output Total 800 ml Balance -149 ml Intake Oral 401 ml IV Total 250 ml Output Urine Total 800 ml General Appearance: Alert, Oriented X3, Cooperative Extremities: Other (Right lower extremity with redness and swelling around the miguel area down to the ankleBilateral 2+ edema ) Medications Current Medications Medications Dose Ordered Sig/Armando Route Start Time Stop Time Status Last Admin Dose Admin Ondansetron HCl 4 mg Q4HP PRN IV 06/22/24 11:15 Enoxaparin Sodium 40 mg DAILY SC 06/23/24 10:00 06/24/24 08:51 40 MG Acetaminophen 650 mg Q6HP PRN PO 06/22/24 11:15 Allopurinol 100 mg DAILY PO 06/23/24 10:00 06/24/24 08:51 100 MG Metoprolol Tartrate 50 mg BID PO 06/22/24 22:00 06/24/24 08:52 50 MG Atorvastatin Calcium 40 mg HS PO 06/22/24 22:00 06/23/24 20:50 40 MG Valsartan 320 mg DAILY PO 06/22/24 11:48 06/24/24 08:52 320 MG Ceftriaxone Sodium 50 ml @ 100 mls/hr DAILY@09 IV 06/23/24 09:00 06/24/24 08:51 100 MLS/HR Hydralazine HCl 10 mg Q6HPRN PRN IV 06/22/24 16:15 06/23/24 15:46 10 MG Patient Own Medication 1 HS EACHEYE 06/23/24 22:00 Furosemide 20 mg BIDD IV 06/23/24 18:00 06/24/24 06:14 20 MG Vancomycin HCl 0 ml @ 0 mls/hr UD IV 06/23/24 12:15 Acetaminophen/ Hydrocodone Bitart 1 tab Q6HP PRN PO 06/23/24 12:15 06/24/24 04:47 1 TAB Vancomycin HCl 200 ml @ 200 mls/hr DAILY@1300 IV 06/24/24 13:00 06/24/24 12:07 200 MLS/HR Magnesium Sulfate/ Dextrose 100 ml @ 100 mls/hr Q1HR IV 06/24/24 12:00 06/24/24 13:59 Laboratory Results Laboratory Tests 06/24/24 09:12 Chemistry Test 06/24/24 09:12 Albumin 3.9 g/dL (3.2-4.8) Calcium Level 10.3 mg/dL (8.7-10.4) Magnesium Level 1.6 mg/dL (1.6-2.6) Total Protein 6.2 g/dL (5.7-8.2) Lipid panel Test 06/24/24 09:12 Cholesterol Level 82 mg/dL (< 200) HDL Cholesterol 36 mg/dL (40-59) L Triglycerides Level 89 mg/dL (< 150) Cardiac Markers Test 06/24/24 09:12 B-Type Natriuretic Peptide Pending LFT Test 06/24/24 09:12 Alanine Aminotransferase (ALT) 24 U/L (7-40) Alkaline Phosphatase 87 U/L (46-116) Aspartate Amino Transferase (AST) 31 U/L (13-40) Total Bilirubin 1.5 mg/dL (0.2-1.0) H Microbiology Microbiology Date/Time Source Procedure Growth Status 06/22/24 14:30 Leg Right Gram Stain - Final Complete 06/22/24 14:30 Wound Culture - Final Enterococcus faecalis Complete 06/22/24 09:50 Blood Blood Culture - Preliminary NO GROWTH AFTER 48 HOURS OF INCUBATION. Resulted Assessment/Plan Assessment/Plan Right lower extremity cellulitis Bilateral lower extremity edema rule out heart failure Hypertension History of coronary artery disease Rule out heart failure Hard of hearing Hypokalemia Acute on chronic diastolic heart failure Severe pulmonary hypertension Severe critical aortic stenosis Plan IV antibiotics Rocephin and vancomycin Start IV Lasix Get an echocardiogram Monitor the high blood pressure Metoprolol and valsartan Discussed with the POA at the bedside Full code 06/24/2024: Add ensure Continue IV antibiotics Diastolic heart failure: Continue Lasix Echocardiogram showed moderate diastolic dysfunction with an ejection fraction of 65% and heavily calcified aortic valve with a critical aortic stenosis, also critical pulmonary hypertension RV SP is 81 Hypomagnesemia: Replace Hypokalemia: Replace Chronic kidney disease: Creatinine 1.3, GFR 53 Plan discussed with: Patient My Orders Orders - CHONG CANADA MD Procedure Category Date Status Time Vancomycin Per HEATH 06/26/24 In Process Pharmacy Protoc 13:00 Vancomycin,Trough LAB 06/26/24 Verified 12:00 Vancomycin 1gm/200ml PHA 06/24/24 In Process Pm 13:00 Apply: HEATH 06/23/24 In Process 14:09 * [employer] CONS 06/23/24 Transmitted Consult Date of Service: June 24, 2024 Billing Provider: CHONG CANADA MD Common Visit Codes: NOT BILLABLE CHONG CANADA MD June 24, 2024 13:36
--- NOTE | 2024-06-24 13:44 | DVH ---
Right Lower Extremity Arterial Duplex Clinical History: PAD Comparison: None Technique: Duplex Doppler evaluation including color Doppler and spectral/pulsed waveform analysis of the lower extremity arteries was performed. Findings: RIGHT: Peak systolic velocities are as follows: [employer] 169 cm/s Deep femoral 95 cm/s SFA proximal 137 cm/s SFA mid-portion 112 cm/s SFA distal 149 cm/s Popliteal 120 cm/s Posterior tibial 70 cm/s Anterior tibial 74 cm/s Peroneal nv cm/s Dorsalis pedis 74 cm/s The waveforms are monophasic with diastolic flow. IMPRESSION: 20- 49% stenosis of the right common femoral artery based on peak systolic velocity criteria. Abnormal monophasic arterial waveforms in the calf suggestive of underlying peripheral arterial disea se. REFERENCE VALUES, [facility]) vascular Imaging Lab Criteria: Peak systolic velocity rang es (in cm/sec) are as follows: <150 cm/s - <20 % stenosis 150-200 cm/s - 20-49% stenosis 200-300 cm/s - 50-75% stenosis >300 cm/s -> 75% stenosis
[2024-06-24] MEDS: POTASSIUM EFFERVESENT TAB 25 MEQ PO ONE (13:59)
[2024-06-24] MEDS: CLOPIDOGREL BISULFATE 75 MG TAB PO ONE (14:45)
[2024-06-24] MEDS: ASPirin 81 mg TAB PO ONE (14:45)
--- NOTE | 2024-06-24 14:57 | ECG ---
[facility] Test Date: 2024-06-23 Test Time: 18:59:52 Pat Name: HOWARD SANDS Department: Room: 0273T B Gender: M Piece Hand: laurie zhu : 1935 Requested By: ARLETTE MONIQUE Order Number: [id number] Reading MD: Jacob Ramos Measurements Intervals [place] Rate: 106 P: 90 VA: 198 QRS: 60 QRSD: 85 T: 251 QT: 302 QTc: 401 Interpretive Statements Sinus tachycardia RSR' in V1 or V2, right VCD or RVH Repol abnrm suggests ischemia, diffuse leads Electronically Signed On 06-26-2024 11:57:33 PDT by Jacob Ramos Please click the below link to view image of tracing.
[2024-06-24 17:00] VITALS: BP 185/52; PULSE 74; RESP 16; TEMP 97.8; O2SAT 94
[2024-06-24] MEDS: Ensure HIGH Protein Chocolate 8oz Bottle PO SCH (17:36)
[2024-06-24 20:00] VITALS: PULSE 82; PULSE 96; RESP 19; O2SAT 97
[2024-06-25] VITALS (7 sets, daily range): BP systolic 140–152; BP diastolic 46–81; PULSE 67–97; RESP 18–19; TEMP 97.5–98.5; O2SAT 92–99
[2024-06-25] MEDS: ONDANSETRON HCL 4 MG/2 ML VIAL IV PRN (02:20)
[2024-06-25 06:47] LABS: Basophils # (auto) 0 10 ^3/uL (0-0.2); Basophils % (auto) 0.3 % (0.0-2.0); Eosinophils # (auto) 0 10 ^3/uL (0-0.8); Eosinophils % (auto) 0.1 % (0.0-7.0); Hematocrit 38.4 % (41.0-53.0); Hemoglobin 12.9 g/dL (13.5-17.5); Lymphocytes # (auto) 0.9 10 ^3/uL (0.4-5.4); Lymphocytes % (auto) 6.6 % (10.0-50.0); Mean Corpuscular Hemoglobin 28.9 pg (28.0-32.0); Mean Corpuscular Hgb Conc. 33.5 g/dL (32.0-36.0); Mean Corpuscular Volume 86.1 fL (80.0-100.0); Monocytes # (auto) 1.1 10 ^3/uL (0-1.3); Monocytes % (auto) 8.3 % (0.0-12.0); Neutrophils # (auto) 11.7 10 ^3/uL (1.6-8.6); Neutrophils % (auto) 84.7 % (37.0-80.0); Nucleated Red Blood Cells % 0.1 %; Platelet Count (auto) 203 10^3/uL (140-450); Red Blood Cells 4.46 10^6/uL (4.5-5.90); Red Cell Distribution Width 14.9 % (11.8-14.3); White Blood Cell 13.8 10^3/uL (4.4-10.8)
[2024-06-25 06:53] LABS: Chloride 103 mmol/L (98-107); Sodium 140 mmol/L (136-145)
[2024-06-25 06:55] LABS: Calcium 10.2 mg/dL (8.7-10.4)
[2024-06-25 06:59] LABS: BUN/Creatinine Ratio 14.2 (10.0-20.0); Blood Urea Nitrogen 19 mg/dL (9-23)
[2024-06-25 07:00] LABS: Magnesium 2.2 mg/dL (1.6-2.6)
[2024-06-25 07:03] LABS: Glucose 126 mg/dL (74-106); Potassium 3.1 mmol/L (3.5-5.1)
[2024-06-25 07:10] LABS: Anion Gap 12 (5-15); Carbon Dioxide 25 mmol/L (20-31)
[2024-06-25] MEDS: POTASSIUM EFFERVESENT TAB 25 MEQ PO ONE (08:46)
[2024-06-25] MEDS: CLOPIDOGREL BISULFATE 75 MG TAB PO SCH (08:47)
[2024-06-25] MEDS: ASPirin 81 mg TAB PO SCH (08:47)
--- NOTE | 2024-06-25 10:00 | ECG ---
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
--- NOTE | 2024-06-25 11:36 | DVHPN2 ---
Subjective His main complaint now is dysphagia His right leg is getting better with less erythema and less edema No chest pain right now Changes from previous H/P or p: Changes Musculoskeletal: arm pain, leg pain Objective Vitals Vital Signs Date Time Temp Pulse Resp B/P (MAP) Pulse Ox O2 Delivery O2 Flow Rate FiO2 06/25/24 09:00 97.5 77 19 148/65 (92) 92 97.5 06/25/24 07:59 Room Air* 0 21 Intake/Output Intake and Output 06/25/24 07:00 Intake Total 900 ml Output Total 200 ml Balance 700 ml Intake Oral 600 ml IV Total 300 ml Output Urine Total 200 ml # Voids 6 # Bowel Movements 4 General Appearance: Alert, Oriented X3, Cooperative Extremities: Other (Right lower extremity with redness and swelling around the miguel area down to the ankleBilateral 2+ edema ) Medications Current Medications Medications Dose Ordered Sig/Armando Route Start Time Stop Time Status Last Admin Dose Admin Ondansetron HCl 4 mg Q4HP PRN IV 06/22/24 11:15 06/25/24 02:20 4 MG Enoxaparin Sodium 40 mg DAILY SC 06/23/24 10:00 06/25/24 08:47 40 MG Acetaminophen 650 mg Q6HP PRN PO 06/22/24 11:15 Allopurinol 100 mg DAILY PO 06/23/24 10:00 06/25/24 08:47 100 MG Metoprolol Tartrate 50 mg BID PO 06/22/24 22:00 06/25/24 08:46 50 MG Atorvastatin Calcium 40 mg HS PO 06/22/24 22:00 06/24/24 20:41 40 MG Valsartan 320 mg DAILY PO 06/22/24 11:48 06/25/24 08:47 320 MG Ceftriaxone Sodium 50 ml @ 100 mls/hr DAILY@09 IV 06/23/24 09:00 06/25/24 08:46 100 MLS/HR Hydralazine HCl 10 mg Q6HPRN PRN IV 06/22/24 16:15 06/24/24 22:03 10 MG Patient Own Medication 1 HS EACHEYE 06/23/24 22:00 06/24/24 20:42 1 Furosemide 20 mg BIDD IV 06/23/24 18:00 06/25/24 05:30 20 MG Vancomycin HCl 0 ml @ 0 mls/hr UD IV 06/23/24 12:15 Acetaminophen/ Hydrocodone Bitart 1 tab Q6HP PRN PO 06/23/24 12:15 06/25/24 01:06 1 TAB Vancomycin HCl 200 ml @ 200 mls/hr DAILY@1300 IV 06/24/24 13:00 06/24/24 12:07 200 MLS/HR Enteral Nutritional Formula 240 ml TIDWM PO 06/24/24 18:00 06/25/24 08:00 240 ML Aspirin 81 mg DAILY PO 06/25/24 10:00 06/25/24 08:47 81 MG Clopidogrel Bisulfate 75 mg DAILY PO 06/25/24 10:00 06/25/24 08:47 75 MG Laboratory Results Laboratory Tests 06/25/24 04:37 Chemistry Test 06/25/24 04:37 Calcium Level 10.2 mg/dL (8.7-10.4) Magnesium Level 2.2 mg/dL (1.6-2.6) Microbiology Microbiology Date/Time Source Procedure Growth Status 06/22/24 14:30 Leg Right Gram Stain - Final Complete 06/22/24 14:30 Wound Culture - Final Enterococcus faecalis Complete 06/22/24 09:50 Blood Blood Culture - Preliminary NO GROWTH AFTER 72 HOURS OF INCUBATION. Resulted Assessment/Plan Assessment/Plan Right lower extremity cellulitis Bilateral lower extremity edema rule out heart failure Hypertension History of coronary artery disease Rule out heart failure Hard of hearing Hypokalemia Acute on chronic diastolic heart failure Severe pulmonary hypertension Severe critical aortic stenosis Plan IV antibiotics Rocephin and vancomycin Start IV Lasix Get an echocardiogram Monitor the high blood pressure Metoprolol and valsartan Discussed with the POA at the bedside Full code 06/24/2024: Add ensure Continue IV antibiotics Diastolic heart failure: Continue Lasix Echocardiogram showed moderate diastolic dysfunction with an ejection fraction of 65% and heavily calcified aortic valve with a critical aortic stenosis, also critical pulmonary hypertension RV SP is 81 Hypomagnesemia: Replace Hypokalemia: Replace Chronic kidney disease: Creatinine 1.3, GFR 53 06/25/2024: NSTEMI: Aspirin, Plavix, Critical aortic stenosis Diastolic heart failure , acute on chronic: Lasix, changed to p.o., cut down on dose Critical pulmonary hypertension History of CAD Hypertensive emergency Hypokalemia : Replace Right lower extremity cellulitis : Ceftriaxone and vancomycin Sepsis : Continue IV antibiotic Hypomagnesemia : Replace as needed Lipitor new Dysphagia: Start Protonix IV, consult GI Plan discussed with: Patient, Other My Orders Orders - CHONG CANADA MD Procedure Category Date Status Time Nutritional PHA 06/24/24 In Process Supplements (Ensure 18:00 Date of Service: June 25, 2024 Billing Provider: CHONG CANADA MD Common Visit Codes: NOT BILLABLE CHONG CANADA MD June 25, 2024 11:36
[2024-06-25] MEDS: PANTOPRAZOLE 40 MG/10 ML VIAL INJ IV ONE (12:47)
[2024-06-25] MEDS: POTASSIUM CHL 20 Meq TABLET PO ONE (12:47)
--- NOTE | 2024-06-25 18:47 | DVH ---
Indication: dysphagia Technique: CT axial images of the chest, abdomen and pelvis are obtained with intravenous contrast. Coronal and sagittal reformats were obtained. Radiation Dose Information: CTDI volume is 16.48 mGy. Dose-length product is 1681.81 mGy*cm Comparison: None FINDINGS: Trachea patent. No pneumothorax. Bilateral atelectasis. 4 mm right upper lobe calcified nodule. Tiny bilateral pleural effusions. 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 Aortic atherosclerotic disease. Small monique cardial effusion. No supraclavicular, axillary lymphadenopathy. Adrenal glands, spleen and pancreas unremarkable in shape. Hydropic/distended gallbladder with possi ble cholelithiasis. Liver unremarkable in shape. Severe right renal cortical thinning. Left kidney d emonstrates no hydronephrosis, nephrolithiasis.m left renal cysts measuring up to 1.5 cm. Small hiatal hernia. Duodenal wall thickening. Colonic diverticular disease. Moderate volume stool i n the colon. Mild stranding surrounding the sigmoid colon. Right inguinal hernia which contains small bowel loops measuring 13.9 x 6.7 cm. No evidence for obstr uction. Abdominal aortic atherosclerotic disease. Bladder is partially distended. Left ureteral seal/ diverti culum incompletely characterized measuring 1.5 cm. Prostate enlarged measuring 5.7 cm transversely. Moderate thoracolumbar degenerative disc disease. Large right hydrocele. IMPRESSION: 1. Duodenal wall thickening. Correlate for duodenitis. 2. Hydropic /distended gallbladder. Recommend abdominal ultrasound for further characterization. 3. Colonic diverticular disease. Mild stranding surrounding the sigmoid colon diverticula, may repres ent diverticulitis. 4. Average right subclavian artery that is retroesophageal. 5. Right inguinal hernia containing small bowel loops without evidence for bowel obstruction, measuri ng 13.9 x 6.7 cm. 6. Bladder diverticulum versus ureterocele as described. Recommend urology consultation for further e valuation. 7. Prostatomegaly. Correlate with PSA levels. 8. Tiny bilateral pleural effusions. 9. Right renal cortical thinning / severe atrophy. 10. Other findings as described
--- NOTE | 2024-06-25 19:03 | DVHPNRES ---
Progress Note Date Seen: June 25, 2024 Resident Creating Document: ARLETTE MONIQUE CUAUHTEMOC Has the PT tested + for MRSA If YES, has PT been informed?: No Medical Necessity Reason Pt with a Central, PICC or Fol: No Subjective Review of Systems Patient seen and examined at the bedside. Patient is feeling better. Patient does not have any active complaint at including chest pain or shortness of breaths. Telemetry reviewed, showed no night events. Patient reports: No new complaints, Feels better Changes from previous H/P or p: Changes Objective vital signs Vital Sign Date Time Temp Pulse Resp B/P (MAP) Pulse Ox O2 Delivery O2 Flow Rate FiO2 06/25/24 17:00 97.9 70 19 152/81 (104) 99 97.9 06/25/24 07:59 Room Air* 0 21 Total Intake and Output 06/24/24 06/24/24 06/25/24 15:00 23:00 07:00 Intake Total 300 ml 600 ml Output Total 200 ml Balance 300 ml -200 ml 600 ml medications Current Medications Medications Dose Ordered Sig/Armando Route Start Time Stop Time Status Last Admin Dose Admin Ondansetron HCl 4 mg Q4HP PRN IV 06/22/24 11:15 06/25/24 02:20 4 MG Enoxaparin Sodium 40 mg DAILY SC 06/23/24 10:00 06/25/24 08:47 40 MG Acetaminophen 650 mg Q6HP PRN PO 06/22/24 11:15 Allopurinol 100 mg DAILY PO 06/23/24 10:00 06/25/24 08:47 100 MG Metoprolol Tartrate 50 mg BID PO 06/22/24 22:00 06/25/24 08:46 50 MG Atorvastatin Calcium 40 mg HS PO 06/22/24 22:00 06/24/24 20:41 40 MG Valsartan 320 mg DAILY PO 06/22/24 11:48 06/25/24 08:47 320 MG Ceftriaxone Sodium 50 ml @ 100 mls/hr DAILY@09 IV 06/23/24 09:00 06/25/24 08:46 100 MLS/HR Hydralazine HCl 10 mg Q6HPRN PRN IV 06/22/24 16:15 06/24/24 22:03 10 MG Patient Own Medication 1 HS EACHEYE 06/23/24 22:00 06/24/24 20:42 1 Vancomycin HCl 0 ml @ 0 mls/hr UD IV 06/23/24 12:15 Acetaminophen/ Hydrocodone Bitart 1 tab Q6HP PRN PO 06/23/24 12:15 06/25/24 01:06 1 TAB Vancomycin HCl 200 ml @ 200 mls/hr DAILY@1300 IV 06/24/24 13:00 06/25/24 12:47 200 MLS/HR Enteral Nutritional Formula 240 ml TIDWM PO 06/24/24 18:00 06/25/24 18:22 240 ML Aspirin 81 mg DAILY PO 06/25/24 10:00 06/25/24 08:47 81 MG Clopidogrel Bisulfate 75 mg DAILY PO 06/25/24 10:00 06/25/24 08:47 75 MG Pantoprazole Sodium 40 mg DAILY IV 06/26/24 10:00 Examination General Appearance: Alert, Oriented X3, Cooperative, No acute distress HEENT: Atraumatic, PERRLA, EOMI, Mucous membrane moist/pink Respiratory: Clear to auscultation, Normal air movement Cardiovascular: Regular rate, Normal S1, Normal S2, No murmurs, no chest wall tenderness Abdominal: Normal bowel sounds, Soft, No tenderness, No hepatospenomegaly, No masses Extremities: No clubbing, No cyanosis, No edema, Normal pulses, No tenderness/swelling Skin: No rashes, No breakdown, No significant lesion Neuro: Normal gait, Normal speech, Strength at 5/5 X4 ext, Normal tone, Sensation intact, Cranial nerves 3-12 NL, Reflexes 2+ Psych/Mental Status: Mental status NL, Mood NL laboratory and microbiology Laboratory Tests 06/25/24 04:37 Test 06/25/24 04:37 Range/Units Serum Glucose 126 H 74-106 mg/dL Microbiology Date/Time Source Procedure Growth Status 06/22/24 14:30 Leg Right Gram Stain - Final Complete 06/22/24 14:30 Wound Culture - Final Enterococcus faecalis Complete 06/22/24 09:50 Blood Blood Culture - Preliminary NO GROWTH AFTER 72 HOURS OF INCUBATION. Resulted Labs and/or images reviewed: Labs reviewed by me, Image(s) reviewed by me Problem List/Assessment/Plan Problem List/Assessment/Plan Chest pain, likely due to NSTEMI/severe aortic stenosis NSTEMI, likely type 1 Acute on chronic diastolic heart failure Hypertensive emergency History of CAD (status post PCI in 2012 with placement of a stent at LAD) Critical pulmonary hypertension Critical aortic stenosis Ruled out PAD/DVT Right lower limb cellulitis/? Abscess Sepsis, likely due to above Hypokalemia Hypomagnesemia * Echo shows, moderate LVH with moderate degree LV diastolic dysfunction (LVEF 65%), critical aortic stenosis and heavily calcified, possible pulmonary hypertension with RVSP 81 * EKG shows, diffuse ST depression, mildly elevated ST segment at aVR, and occasional PVCs * Troponin is raised at 1228, downtrending and BNP is raised at 846 * Duplex ultrasound of right lower limb does not show hemodynamically significant stenosis Plan/Recommendation (Case discussed with Dr. Estes) * Continue Lasix 20 mg b.i.d., metoprolol and valsartan 320 mg * Continue aspirin 81mg and Plavix 75mg * Follow up with Cardiology on outpatient basis for critical aortic stenosis/NSTEMI workup * Keep K above 4, and Mag above 2 * We will sign out the patient Thank you for allowing us to participate in this patient's care. Please call if you have any questions or concerns. Plan discussed with: Patient, Other (RN) Dietary Evaluation Review Recommendations by RD: Increase Calorie Intake Comments: 1) Initiate Ensure Enlive bid. Encourage optimal PO intake 2) Consider removing cardiac restriction from diet d/t decreased appetite and advanced age 3) Initiate vitamin C @ 500 mg bid and zinc sulfate @ 220 mg qd for 7-10 days 4) Follow-up with cardiology and nephrology 5) Continue to monitor I&O, labs, and skin integrity Expected Outcomes/Goals: 1) appetite and labs to improve 2) wound to improve 3) follow-up in 3-5 days Visit Coding Cardiology RES Date of Service: June 25, 2024 Billing Provider: POLO ESTES MD Cardiology Common Codes: [id number] ARLETTE MONIQUE RESDIENT June 25, 2024 19:03
--- NOTE | 2024-06-25 22:03 | DVHINCON2 ---
Date of service: June 25, [address] Stewart Reason for Consultation Dysphagia History of Present Illness Joshua Cordova is an 88-year-old male with past medical history of hypertension, ND, and PTCA x1 in January of [address] [facility] who presents to the ED with right lower extremity pain and swelling since Monday. He reports that he was sitting on a chair while his grandkids replying around him and from what he remembers he fell to the ground. He is also complaining of right rib pain and right forearm pain. Patient reports that he has hearing aids but is currently not wearing it. His leg pain is currently 6/10 and constant that he reports. Patient reports that he lives alone. Today in the morning the patient was having some trouble swallowing which he attributed to phlegm in his throat. Patient states his symptoms are now resolved and he is able to tolerate a diet. Patient is asking for his [place] or hydrocodone Past Medical History Cardiovascular: HTN, ND Past Surgical History Past Surgical History: Other (PTCA x1 in January of [address] [facility]) Family History: Patient reports no known family medical history. Allergies: Coded Allergies: NO KNOWN ALLERGIES (Unverified , 02/15/23) Home Meds Active Scripts Cephalexin (KEFLEX CAPSULE) 250 Mg Cp, 1 CAP PO QID for 7 Days, #28 CAP Prov:JALYN MIDDLETON PAC 02/16/23 Hydrocodone-Acetaminophen (Hydrocodone Bitartrate/AC 5-325 mg) 1 Tab Tab, 1 TAB PO Q6HP PRN, #20 TAB Prov:JALYN MIDDLETON PAC 02/16/23 Reported Medications Hydrocodone-Acetaminophen (Hydrocodone Bitartrate/AC 10-325 mg) 1 Tab Tab, 1 TAB PO Q6HPRN PRN for PAIN SCALE 7 THRU 10, TAB 06/22/24 Bimatoprost (Lumigan) 0.01 % Zarina, 1 DROP EACHEYE QPM, #7.5 ML 3 Refills 06/22/24 Allopurinol (Allopurinol) 100 Mg Tab, 1 TAB PO DAILY 06/22/24 Atorvastatin Calcium (ATORVASTATIN CALCIUM) 40 Mg Tab, 1 TAB PO DAILY 06/22/24 Valsartan (Valsartan) 320 Mg Tab, 1 TAB PO DAILY 06/22/24 Metoprolol Tartrate (LOPRESSOR TABLET) 50 Mg Tb, 1 TAB PO BID 06/22/24 Discontinued Reported Medications Enalapril Maleate (Enalapril Maleate) 10 Mg Tab, 1 TAB PO DAILY 06/22/24 Current Medications Current Medications Medications (Trade) Dose Ordered Sig/Armando Route PRN Reason Start Time Stop Time Status Last Admin Aspirin 81 mg DAILY PO 06/25/24 10:00 06/25/24 08:47 Clopidogrel Bisulfate (Plavix) 75 mg DAILY PO 06/25/24 10:00 06/25/24 08:47 Pantoprazole Sodium (Protonix) 40 mg DAILY IV 06/26/24 10:00 Vital Signs Vital Signs Date Time Temp Pulse Resp B/P (MAP) Pulse Ox O2 Delivery O2 Flow Rate FiO2 06/25/24 17:00 97.9 70 19 152/81 (104) 99 97.9 06/25/24 07:59 Room Air* 0 21 Physical Exam General Appearance: Alert, Oriented X3, Cooperative, No acute distress HEENT: Atraumatic, PERRLA, EOMI, Mucous membrane moist/pink Respiratory: Clear to auscultation, Normal air movement Cardiovascular: Regular rate, Normal S1, Normal S2, No murmurs, no chest wall tenderness Abdominal: Normal bowel sounds, Soft, No tenderness, No hepatospenomegaly, No masses Extremities: No clubbing, No cyanosis, No edema, Normal pulses, Right leg swelling and edema function to ankle Skin: No rashes, No breakdown, No significant lesion Neuro: Normal gait, Normal speech, Strength at 5/5 X4 ext, Normal tone, Sensation intact, Cranial nerves 3-12 NL, Reflexes 2+ Psych/Mental Status: Mental status NL, Mood NL Labs/Diagnostic Data Labs Test 06/25/24 04:37 06/24/24 09:12 06/22/24 09:50 Range/Units White Blood Count 13.8 H 4.4-10.8 10^3/uL Red Blood Count 4.46 L 4.5-5.90 10^6/uL Hemoglobin 12.9 L 13.5-17.5 g/dL Hematocrit 38.4 L 41.0-53.0 % Mean Corpuscular Volume 86.1 80.0-100.0 fL Mean Corpuscular Hemoglobin 28.9 28.0-32.0 pg Mean Corpuscular Hemoglobin Concent 33.5 32.0-36.0 g/dL Red Cell Distribution Width 14.9 H 11.8-14.3 % Platelet Count 203 140-450 10^3/uL Mean Platelet Volume 9.3 6.9-10.8 fL Neutrophils (%) (Auto) 84.7 H 37.0-80.0 % Lymphocytes (%) (Auto) 6.6 L 10.0-50.0 % Monocytes (%) (Auto) 8.3 0.0-12.0 % Eosinophils (%) (Auto) 0.1 0.0-7.0 % Basophils (%) (Auto) 0.3 0.0-2.0 % Neutrophils # (Auto) 11.7 H 1.6-8.6 10 ^3/uL Lymphocytes # (Auto) 0.9 0.4-5.4 10 ^3/uL Monocytes # (Auto) 1.1 0-1.3 10 ^3/uL Eosinophils # (Auto) 0 0-0.8 10 ^3/uL Basophils # (Auto) 0 0-0.2 10 ^3/uL Nucleated Red Blood Cells 0.1 % Sodium Level 140 136-145 mmol/L Potassium Level 3.1 L 3.5-5.1 mmol/L Chloride Level 103 98-107 mmol/L Carbon Dioxide Level 25 20-31 mmol/L Anion Gap 12 5-15 Blood Urea Nitrogen 19 9-23 mg/dL Creatinine 1.34 H 0.700-1.30 mg/dL Glomerular Filtration Rate Calc 51 >90 mL/min BUN/Creatinine Ratio 14.2 10.0-20.0 Serum Glucose 126 H 74-106 mg/dL Calcium Level 10.2 8.7-10.4 mg/dL Magnesium Level 2.2 1.6-2.6 mg/dL Troponin I High Sensitivity 595 *H </=54 ng/L Total Bilirubin 1.5 H 0.2-1.0 mg/dL Aspartate Amino Transferase (AST) 31 13-40 U/L Alanine Aminotransferase (ALT) 24 7-40 U/L Alkaline Phosphatase 87 46-116 U/L B-Type Natriuretic Peptide 846.93 0-100 pg/mL Total Protein 6.2 5.7-8.2 g/dL Albumin 3.9 3.2-4.8 g/dL Triglycerides Level 89 < 150 mg/dL Cholesterol Level 82 < 200 mg/dL LDL Cholesterol 26 < 100 mg/dL HDL Cholesterol 36 L 40-59 mg/dL Erythrocyte Sedimentation Rate 11 0-20 mm/hr Lactic Acid Level 1.1 0.4-2.0 mmol/L C-Reactive Protein High Sensitivity 7.41 H <1.0 mg/dL Microbiology Date/Time Source Procedure Growth Status 06/22/24 14:30 Leg Right Gram Stain - Final Complete 06/22/24 14:30 Wound Culture - Final Enterococcus faecalis Complete 06/22/24 09:50 Blood Blood Culture - Preliminary NO GROWTH AFTER 72 [address]. [address] CHEST ABD PELVIS mall hiatal hernia. Duodenal wall thickening. Colonic diverticular disease. Moderate volume stool in the colon. Mild stranding surrounding the sigmoid colon. Right inguinal hernia which contains small bowel loops measuring 13.9 x 6.7 cm. No evidence for obstruction. Abdominal aortic atherosclerotic disease. Bladder is partially distended. Left ureteral seal/ diverticulum incompletely characterized measuring 1.5 cm. Prostate enlarged measuring 5.7 cm transversely. Moderate thoracolumbar degenerative disc disease. Large right hydrocele. IMPRESSION: 1. Duodenal wall thickening. Correlate for duodenitis. 2. Hydropic /distended gallbladder. Recommend abdominal ultrasound for further characterization. 3. Colonic diverticular disease. Mild stranding surrounding the sigmoid colon diverticula, may represent diverticulitis. 4. Average right subclavian artery that is retroesophageal. 5. Right inguinal hernia containing small bowel loops without evidence for bowel obstruction, measuring 13.9 x 6.7 cm. 6. Bladder diverticulum versus ureterocele as described. Recommend urology consultation for further evaluation. 7. Prostatomegaly. Correlate with PSA levels. 8. Tiny bilateral pleural effusions. 9. Right renal cortical thinning / severe atrophy. Problems(with codes): (1) Dysphagia (2) Hypertensive emergency (3) Cellulitis (4) Skin infection Plan/Recommendation Plan I had ordered a CT scan of the abdomen chest and pelvis which has been reviewed Chest pain, likely due to NSTEMI/severe aortic stenosis NSTEMI, likely type 1 Acute on chronic diastolic heart failure Hypertensive emergency History of CAD (status post PCI in 2011 with placement of a stent at LAD) Critical pulmonary hypertension Critical aortic stenosis Ruled out PAD/DVT Right lower limb cellulitis/? Abscess on IV ABX We will get right lower extremity CT Patient is not a candidate for endoscopic workup because of underlying severe aortic stenosis elevated troponins hypertensive urgency and hyper pulmonary hypertension I believe his symptoms of dysphagia were related to thick sputum in the back of his throat which have now cleared We can get a swallow evaluation Mild duodenitis is noted on the CT abdomen Protonix 40 mg IV q.12 hours Carafate 1 g p.o. twice a day Continue to monitor his symptoms I will follow up patient with you Plan discussed with: Patient, Other (Nurse) LINO FITZGERALD MD June 25, 2024 22:03
[2024-06-26] VITALS (9 sets, daily range): BP systolic 97–182; BP diastolic 44–68; PULSE 61–86; RESP 18–19; TEMP 97.7–98.7; O2SAT 92–97
[2024-06-26] MEDS: SUCRALFATE 1 GM/10 ML ORAL SUSP PO SCH (05:50)
[2024-06-26 07:32] LABS: Basophils # (auto) 0.1 10 ^3/uL (0-0.2); Basophils % (auto) 0.8 % (0.0-2.0); Eosinophils # (auto) 0.1 10 ^3/uL (0-0.8); Eosinophils % (auto) 1.4 % (0.0-7.0); Hematocrit 36.8 % (41.0-53.0); Hemoglobin 12.4 g/dL (13.5-17.5); Lymphocytes # (auto) 1.1 10 ^3/uL (0.4-5.4); Mean Corpuscular Hemoglobin 28.8 pg (28.0-32.0); Mean Corpuscular Hgb Conc. 33.8 g/dL (32.0-36.0); Mean Corpuscular Volume 85.1 fL (80.0-100.0); Monocytes # (auto) 0.9 10 ^3/uL (0-1.3); Monocytes % (auto) 9.4 % (0.0-12.0); Neutrophils % (auto) 76.4 % (37.0-80.0); Platelet Count (auto) 205 10^3/uL (140-450); Red Blood Cells 4.32 10^6/uL (4.5-5.90); Red Cell Distribution Width 14.9 % (11.8-14.3); White Blood Cell 9.2 10^3/uL (4.4-10.8)
[2024-06-26 07:52] LABS: Alanine Aminotransferase 26 U/L (7-40); Albumin 3.4 g/dL (3.2-4.8); Alkaline Phosphatase 79 U/L (46-116); Anion Gap 8 (5-15); Aspartate Aminotransferase 21 U/L (13-40); Calcium 10.2 mg/dL (8.7-10.4); Carbon Dioxide 28 mmol/L (20-31); Chloride 104 mmol/L (98-107); Magnesium 2.3 mg/dL (1.6-2.6); Sodium 140 mmol/L (136-145)
[2024-06-26 07:53] LABS: Bilirubin, Total 0.8 mg/dL (0.2-1.0)
[2024-06-26 07:56] LABS: Blood Urea Nitrogen 26 mg/dL (9-23); Glucose 113 mg/dL (74-106); Total Protein 5.5 g/dL (5.7-8.2)
[2024-06-26] MEDS: PANTOPRAZOLE 40 MG/10 ML VIAL INJ IV SCH (09:14)
[2024-06-26] MEDS: POTASSIUM EFFERVESENT TAB 25 MEQ PO ONE (12:01)
--- NOTE | 2024-06-26 14:22 | DVHPN2 ---
Progress Note - Dictate Date Seen: June 26, 2024 Has the PT tested + for MRSA If YES, has PT been informed?: No Medical Necessity Reason Pt with a Central, PICC or Fol: No Subjective No new complaints Patient tolerating diet vital signs Vital Sign Date Time Temp Pulse Resp B/P (MAP) Pulse Ox O2 Delivery O2 Flow Rate FiO2 06/26/24 12:04 68 150/44 06/26/24 09:00 98.7 18 93 98.7 06/26/24 07:36 Room Air* 0 21 Total Intake and Output 06/25/24 06/25/24 06/26/24 15:00 23:00 07:00 Intake Total 250 ml 500 ml Output Total 4000 ml Balance 250 ml -4000 ml 500 ml medications Current Medications Medications Dose Ordered Sig/Armando Route Start Time Stop Time Status Last Admin Dose Admin Ondansetron HCl 4 mg Q4HP PRN IV 06/22/24 11:15 06/25/24 02:20 4 MG Enoxaparin Sodium 40 mg DAILY SC 06/23/24 10:00 06/26/24 09:15 40 MG Acetaminophen 650 mg Q6HP PRN PO 06/22/24 11:15 Allopurinol 100 mg DAILY PO 06/23/24 10:00 06/26/24 09:14 100 MG Metoprolol Tartrate 50 mg BID PO 06/22/24 22:00 06/26/24 09:14 50 MG Atorvastatin Calcium 40 mg HS PO 06/22/24 22:00 06/25/24 21:26 40 MG Valsartan 320 mg DAILY PO 06/22/24 11:48 06/26/24 10:24 320 MG Ceftriaxone Sodium 50 ml @ 100 mls/hr DAILY@09 IV 06/23/24 09:00 06/26/24 09:14 100 MLS/HR Hydralazine HCl 10 mg Q6HPRN PRN IV 06/22/24 16:15 06/24/24 22:03 10 MG Patient Own Medication 1 HS EACHEYE 06/23/24 22:00 06/25/24 21:27 1 Vancomycin HCl 0 ml @ 0 mls/hr UD IV 06/23/24 12:15 Acetaminophen/ Hydrocodone Bitart 1 tab Q6HP PRN PO 06/23/24 12:15 06/26/24 13:02 1 TAB Vancomycin HCl 200 ml @ 200 mls/hr DAILY@1300 IV 06/24/24 13:00 06/26/24 12:55 200 MLS/HR Enteral Nutritional Formula 240 ml TIDWM PO 06/24/24 18:00 06/26/24 12:02 240 ML Aspirin 81 mg DAILY PO 06/25/24 10:00 06/26/24 09:14 81 MG Clopidogrel Bisulfate 75 mg DAILY PO 06/25/24 10:00 06/26/24 10:28 75 MG Pantoprazole Sodium 40 mg DAILY IV 06/26/24 10:00 06/26/24 09:14 40 MG Sucralfate 1 gm TID@0600,1130,2200 PO 06/26/24 06:00 06/26/24 12:01 1 GM objective General Appearance: Alert, Oriented X3, Cooperative, No acute distress HEENT: Atraumatic, PERRLA, EOMI, Mucous membrane moist/pink Respiratory: Clear to auscultation, Normal air movement Cardiovascular: Regular rate, Normal S1, Normal S2, No murmurs, no chest wall tenderness Abdominal: Normal bowel sounds, Soft, No tenderness, No hepatospenomegaly, No masses Extremities: No clubbing, No cyanosis, No edema, Normal pulses, Right leg swelling and edema function to ankle Skin: No rashes, No breakdown, No significant lesion Neuro: Normal gait, Normal speech, Strength at 5/5 X4 ext, Normal tone, Sensation intact, Cranial nerves 3-12 NL, Reflexes 2+ Psych/Mental Status: Mental status NL, Mood NL laboratory and microbiology Laboratory Tests 06/26/24 06:22 Test 06/26/24 06:22 Range/Units Serum Glucose 113 H 74-106 mg/dL Problems(with codes): (1) Dysphagia (2) Hypertensive emergency (3) Peripheral neuropathy (4) Hypercalcemia (5) Cellulitis Prognosis PLAN Patient is not a candidate for endoscopic workup because of underlying severe aortic stenosis elevated troponins hypertensive urgency and hyper pulmonary hypertension I believe his symptoms of dysphagia were related to thick sputum in the back of his throat which have now cleared We can get a swallow evaluation Mild duodenitis is noted on the CT abdomen Protonix 40 mg IV q.12 hours Carafate 1 g p.o. twice a day Continue to monitor his symptoms I will follow up patient with you Dietary Evaluation Review Recommendations by CHLOE: Increase Calorie Intake Comments: 1) Initiate Ensure Enlive bid. Encourage optimal PO intake 2) Consider removing cardiac restriction from diet d/t decreased appetite and advanced age 3) Initiate vitamin C @ 500 mg bid and zinc sulfate @ 220 mg qd for 7-10 days 4) Follow-up with cardiology and nephrology 5) Continue to monitor I&O, labs, and skin integrity Expected Outcomes/Goals: 1) appetite and labs to improve 2) wound to improve 3) follow-up in 3-5 days Plan discussed with: Patient, Other (Dr Stewart) LINO FITZGERALD MD June 26, 2024 14:22
--- NOTE | 2024-06-26 15:04 | DVH ---
Procedure: CT CT R TIB FIB WO CONTRAST 06/26/2024 12:07 PM Indication: cellulitis, rule out abscess Comparison Study: None Technique: Axial images right tibia/fibula were obtained and reformatted in coronal and sagittal plan es. All CT scans at this medical facility are performed using dose modulation techniques as appropria te to a performed exam including the following: Automated exposure control was utilized; adjustment o f the MA and/or KV according to patient size; and use of iterative reconstruction technique. CT Dose: CTDI volume is 7.75 mGy. Dose-length product is 539.9 mGy*cm FINDINGS: Bones: No acute fracture or dislocation. Joint spaces are maintained. Soft tissues: A large anterior subcutaneous hematoma noted measuring 9.1 cm in craniocaudal, 4.3 cm i n transverse 2 cm in thickness with surrounding subcutaneous fat stranding likely edema or interstiti al hemorrhage. Mild irregularity of the skin at the inferior aspect of this hematoma noted. Diffuse a therosclerotic calcification is seen. IMPRESSION: 1. Large, 9.1 x 4.3 cm subcutaneous hematoma in the anterior mid leg with surrounding subcutaneous ed nolan and skin ulceration at the inferior aspect of the hematoma. No soft tissue gas or foreign body. 2. No acute osseous abnormality. 3. Peripheral arterial disease.
--- NOTE | 2024-06-26 17:00 | DVHPN2 ---
Subjective Complains of pain and swelling in his right leg Changes from previous H/P or p: Changes Musculoskeletal: arm pain, leg pain Objective Vitals Vital Signs Date Time Temp Pulse Resp B/P (MAP) Pulse Ox O2 Delivery O2 Flow Rate FiO2 06/26/24 13:36 69 158/65 (96) 06/26/24 13:00 97.7 19 97 97.7 06/26/24 07:36 Room Air* 0 21 Intake/Output Intake and Output 06/26/24 07:00 Intake Total 750 ml Output Total 4000 ml Balance -3250 ml Intake Oral 500 ml IV Total 250 ml Output Urine Total 4000 ml # Voids 5 # Bowel Movements 3 General Appearance: Alert, Oriented X3, Cooperative Extremities: Other (Right lower extremity with redness and swelling around the miguel area down to the ankleBilateral 2+ edema ) Medications Current Medications Medications Dose Ordered Sig/Armando Route Start Time Stop Time Status Last Admin Dose Admin Ondansetron HCl 4 mg Q4HP PRN IV 06/22/24 11:15 06/25/24 02:20 4 MG Enoxaparin Sodium 40 mg DAILY SC 06/23/24 10:00 06/26/24 09:15 40 MG Acetaminophen 650 mg Q6HP PRN PO 06/22/24 11:15 Allopurinol 100 mg DAILY PO 06/23/24 10:00 06/26/24 09:14 100 MG Metoprolol Tartrate 50 mg BID PO 06/22/24 22:00 06/26/24 09:14 50 MG Atorvastatin Calcium 40 mg HS PO 06/22/24 22:00 06/25/24 21:26 40 MG Valsartan 320 mg DAILY PO 06/22/24 11:48 06/26/24 10:24 320 MG Ceftriaxone Sodium 50 ml @ 100 mls/hr DAILY@09 IV 06/23/24 09:00 06/26/24 09:14 100 MLS/HR Hydralazine HCl 10 mg Q6HPRN PRN IV 06/22/24 16:15 06/24/24 22:03 10 MG Patient Own Medication 1 HS EACHEYE 06/23/24 22:00 06/25/24 21:27 1 Vancomycin HCl 0 ml @ 0 mls/hr UD IV 06/23/24 12:15 Acetaminophen/ Hydrocodone Bitart 1 tab Q6HP PRN PO 06/23/24 12:15 06/26/24 13:02 1 TAB Vancomycin HCl 200 ml @ 200 mls/hr DAILY@1300 IV 06/24/24 13:00 06/26/24 12:55 200 MLS/HR Enteral Nutritional Formula 240 ml TIDWM PO 06/24/24 18:00 06/26/24 12:02 240 ML Aspirin 81 mg DAILY PO 06/25/24 10:00 06/26/24 09:14 81 MG Clopidogrel Bisulfate 75 mg DAILY PO 06/25/24 10:00 06/26/24 10:28 75 MG Pantoprazole Sodium 40 mg DAILY IV 06/26/24 10:00 06/26/24 09:14 40 MG Sucralfate 1 gm TID@0600,1130,2200 PO 06/26/24 06:00 06/26/24 12:01 1 GM Laboratory Results Laboratory Tests 06/26/24 06:22 Chemistry Test 06/26/24 06:22 Albumin 3.4 g/dL (3.2-4.8) Calcium Level 10.2 mg/dL (8.7-10.4) Magnesium Level 2.3 mg/dL (1.6-2.6) Total Protein 5.5 g/dL (5.7-8.2) L LFT Test 06/26/24 06:22 Alanine Aminotransferase (ALT) 26 U/L (7-40) Alkaline Phosphatase 79 U/L (46-116) Aspartate Amino Transferase (AST) 21 U/L (13-40) Total Bilirubin 0.8 mg/dL (0.2-1.0) Microbiology Microbiology Date/Time Source Procedure Growth Status 06/22/24 14:30 Leg Right Gram Stain - Final Complete 06/22/24 14:30 Wound Culture - Final Enterococcus faecalis Complete 06/22/24 09:50 Blood Blood Culture - Preliminary NO GROWTH AFTER 72 HOURS OF INCUBATION. Resulted Assessment/Plan Assessment/Plan Right lower extremity cellulitis Bilateral lower extremity edema rule out heart failure Hypertension History of coronary artery disease Rule out heart failure Hard of hearing Hypokalemia Acute on chronic diastolic heart failure Severe pulmonary hypertension Severe critical aortic stenosis Plan IV antibiotics Rocephin and vancomycin Start IV Lasix Get an echocardiogram Monitor the high blood pressure Metoprolol and valsartan Discussed with the POA at the bedside Full code 06/24/2024: Add ensure Continue IV antibiotics Diastolic heart failure: Continue Lasix Echocardiogram showed moderate diastolic dysfunction with an ejection fraction of 65% and heavily calcified aortic valve with a critical aortic stenosis, also critical pulmonary hypertension RV SP is 81 Hypomagnesemia: Replace Hypokalemia: Replace Chronic kidney disease: Creatinine 1.3, GFR 53 06/25/2024: NSTEMI: Aspirin, Plavix, Critical aortic stenosis Diastolic heart failure , acute on chronic: Lasix, changed to p.o., cut down on dose Critical pulmonary hypertension History of CAD Hypertensive emergency Hypokalemia : Replace Right lower extremity cellulitis : Ceftriaxone and vancomycin Sepsis : Continue IV antibiotic Hypomagnesemia : Replace as needed Lipitor new Dysphagia: Start Protonix IV, consult GI 06/26/2024: Abscess or hematoma of the right leg: Consult surgery Cellulitis of the right lower extremity: Continue IV antibiotics Critical aortic stenosis Critical pulmonary hypertension Dysphagia Hypokalemia Sepsis Plan discussed with: Patient, Spouse My Orders Orders - CHONG CANADA MD Procedure Category Date Status Time Ct R Tib Fib Wo CT 06/26/24 Resulted Contrast 11:47 Complete Blood Count LAB 06/27/24 Verified 04:00 Creatinine LAB 06/27/24 Verified 04:00 Vancomycin,Trough LAB 06/29/24 Verified 12:00 Vancomycin Per HEATH 06/29/24 In Process Pharmacy Protoc 12:00 * Surgical Consult CONS 06/26/24 Transmitted Date of Service: June 26, 2024 Billing Provider: CHONG CANADA MD Common Visit Codes: NOT BILLABLE CHONG CANADA MD June 26, 2024 17:00
--- NOTE | 2024-06-26 21:51 | DVHINCON2 ---
Date of service: June 26, 2024 Family History: Patient reports no known family medical history. Allergies: Coded Allergies: NO KNOWN ALLERGIES (Unverified , 02/15/23) Home Meds Active Scripts Cephalexin (KEFLEX CAPSULE) 250 Mg Cp, 1 CAP PO QID for 7 Days, #28 CAP Prov:JLAYN MIDDLETON PAC 02/16/23 Hydrocodone-Acetaminophen (Hydrocodone Bitartrate/AC 5-325 mg) 1 Tab Tab, 1 TAB PO Q6HP PRN, #20 TAB Prov:JALYN MIDDLETON PAC 02/16/23 Reported Medications Hydrocodone-Acetaminophen (Hydrocodone Bitartrate/AC 10-325 mg) 1 Tab Tab, 1 TAB PO Q6HPRN PRN for PAIN SCALE 7 THRU 10, TAB 06/22/24 Bimatoprost (Lumigan) 0.01 % Zarina, 1 DROP EACHEYE QPM, #7.5 ML 3 Refills 06/22/24 Allopurinol (Allopurinol) 100 Mg Tab, 1 TAB PO DAILY 06/22/24 Atorvastatin Calcium (ATORVASTATIN CALCIUM) 40 Mg Tab, 1 TAB PO DAILY 06/22/24 Valsartan (Valsartan) 320 Mg Tab, 1 TAB PO DAILY 06/22/24 Metoprolol Tartrate (LOPRESSOR TABLET) 50 Mg Tb, 1 TAB PO BID 06/22/24 Discontinued Reported Medications Enalapril Maleate (Enalapril Maleate) 10 Mg Tab, 1 TAB PO DAILY 06/22/24 Current Medications Current Medications Medications (Trade) Dose Ordered Sig/Armando Route PRN Reason Start Time Stop Time Status Last Admin Pantoprazole Sodium (Protonix) 40 mg DAILY IV 06/26/24 10:00 06/26/24 09:14 Sucralfate (Carafate Susp) 1 gm TID@0600,1130,2200 PO 06/26/24 06:00 06/26/24 20:57 Vital Signs Vital Signs Date Time Temp Pulse Resp B/P (MAP) Pulse Ox O2 Delivery O2 Flow Rate FiO2 06/26/24 20:57 75 148/55 06/26/24 17:16 97.9 19 96 97.9 06/26/24 07:36 Room Air* 0 21 Labs/Diagnostic Data Labs Test 06/26/24 12:50 06/26/24 06:22 06/25/24 04:37 06/24/24 09:12 Range/Units Vancomycin Level Trough 13.9 H 5-10 ug/mL White Blood Count 9.2 # 4.4-10.8 10^3/uL Red Blood Count 4.32 L 4.5-5.90 10^6/uL Hemoglobin 12.4 L 13.5-17.5 g/dL Hematocrit 36.8 L 41.0-53.0 % Mean Corpuscular Volume 85.1 80.0-100.0 fL Mean Corpuscular Hemoglobin 28.8 28.0-32.0 pg Mean Corpuscular Hemoglobin Concent 33.8 32.0-36.0 g/dL Red Cell Distribution Width 14.9 H 11.8-14.3 % Platelet Count 205 140-450 10^3/uL Mean Platelet Volume 8.9 6.9-10.8 fL Neutrophils (%) (Auto) 76.4 37.0-80.0 % Lymphocytes (%) (Auto) 12.0 10.0-50.0 % Monocytes (%) (Auto) 9.4 0.0-12.0 % Eosinophils (%) (Auto) 1.4 0.0-7.0 % Basophils (%) (Auto) 0.8 0.0-2.0 % Neutrophils # (Auto) 7.0 1.6-8.6 10 ^3/uL Lymphocytes # (Auto) 1.1 0.4-5.4 10 ^3/uL Monocytes # (Auto) 0.9 0-1.3 10 ^3/uL Eosinophils # (Auto) 0.1 0-0.8 10 ^3/uL Basophils # (Auto) 0.1 0-0.2 10 ^3/uL Nucleated Red Blood Cells 0.0 % Sodium Level 140 136-145 mmol/L Potassium Level 3.0 L 3.5-5.1 mmol/L Chloride Level 104 98-107 mmol/L Carbon Dioxide Level 28 20-31 mmol/L Anion Gap 8 5-15 Blood Urea Nitrogen 26 H 9-23 mg/dL Creatinine 1.37 H 0.700-1.30 mg/dL Glomerular Filtration Rate Calc 49 >90 mL/min BUN/Creatinine Ratio 19.0 10.0-20.0 Serum Glucose 113 H 74-106 mg/dL Calcium Level 10.2 8.7-10.4 mg/dL Magnesium Level 2.3 1.6-2.6 mg/dL Total Bilirubin 0.8 0.2-1.0 mg/dL Aspartate Amino Transferase (AST) 21 13-40 U/L Alanine Aminotransferase (ALT) 26 7-40 U/L Alkaline Phosphatase 79 46-116 U/L Total Protein 5.5 L 5.7-8.2 g/dL Albumin 3.4 3.2-4.8 g/dL Troponin I High Sensitivity 595 *H </=54 ng/L B-Type Natriuretic Peptide 846.93 0-100 pg/mL Triglycerides Level 89 < 150 mg/dL Cholesterol Level 82 < 200 mg/dL LDL Cholesterol 26 < 100 mg/dL HDL Cholesterol 36 L 40-59 mg/dL Test 06/22/24 09:50 Range/Units Erythrocyte Sedimentation Rate 11 0-20 mm/hr Lactic Acid Level 1.1 0.4-2.0 mmol/L C-Reactive Protein High Sensitivity 7.41 H <1.0 mg/dL Microbiology Date/Time Source Procedure Growth Status 06/22/24 14:30 Leg Right Gram Stain - Final Complete 06/22/24 14:30 Wound Culture - Final Enterococcus faecalis Complete 06/22/24 09:50 Blood Blood Culture - Preliminary NO GROWTH AFTER 72 HOURS OF INCUBATION. Resulted Assessment [id number] AFEBRILE VSS R LOWER LEG CELLULITIS/ HEMATOMA CLOSE OBSERVATION CONSIDER VASCULAR / ORTHOE EVAL IF CLEARED FOR SURGERY AND INDICATED Plan discussed with: Other GRISEL FITZGERALD MD June 26, 2024 21:51
[2024-06-27] VITALS (9 sets, daily range): BP systolic 107–179; BP diastolic 50–85; PULSE 54–82; RESP 15–18; TEMP 97.6–98.9; O2SAT 93–95
--- NOTE | 2024-06-27 00:59 | DVHINCON2 ---
DATE OF CONSULTATION: 06/26/2024 HISTORY OF PRESENT ILLNESS: This patient is 88 years old with history of [place], hypertension, [place], PTCA coming into the right lower extremity and ankle cellulitis, redness and swelling. He also is complaining of right rib pain and right forearm pain. PAST MEDICAL HISTORY: Hypertension, [place]. PAST SURGICAL HISTORY: PTCA. PHYSICAL EXAMINATION: VITAL SIGNS: Afebrile. Stable signs. GENERAL: No evidence of pallor, cyanosis or jaundice. NECK: Supple, nontender with no thyromegaly or lymphadenopathy. CHEST AND LUNGS: Clear. HEART: Within normal limits. ABDOMEN: Soft. NEUROLOGIC: Not assessed. EXTREMITIES: Examination reveals right foot and right lower leg cellulitis with the possibility of a large subcutaneous hematoma and erythema. PLAN: The plan will be to continue close observation and consider drainage based upon Vascular and/or Orthopedic Surgery in case drainage is considered. MD TATYANA Sheffield/NINA/ISRAEL TID: [id number] RECEIPT: [id number] cc: Alise Stewart MD
[2024-06-27 07:22] LABS: INR 1.12 (0.9-1.15); Partial Thromboplastin Time 32.9 SEC (24.5-34.5); Prothrombin Time 11.7 sec (9.3-11.8)
[2024-06-27 07:31] LABS: Alanine Aminotransferase 30 U/L (7-40); Albumin 3.5 g/dL (3.2-4.8); Alkaline Phosphatase 76 U/L (46-116); Anion Gap 10 (5-15); BUN/Creatinine Ratio 19.8 (10.0-20.0); Calcium 9.7 mg/dL (8.7-10.4); Carbon Dioxide 25 mmol/L (20-31); Chloride 104 mmol/L (98-107); Magnesium 2.2 mg/dL (1.6-2.6); Potassium 3.9 mmol/L (3.5-5.1); Sodium 139 mmol/L (136-145)
[2024-06-27 07:32] LABS: Bilirubin, Total 0.8 mg/dL (0.2-1.0)
[2024-06-27 07:34] LABS: Aspartate Aminotransferase 43 U/L (13-40); Blood Urea Nitrogen 24 mg/dL (9-23); Glucose 111 mg/dL (74-106); Total Protein 5.7 g/dL (5.7-8.2)
[2024-06-27 07:45] LABS: Basophils # (auto) 0 10 ^3/uL (0-0.2); Basophils % (auto) 0.4 % (0.0-2.0); Eosinophils # (auto) 0.3 10 ^3/uL (0-0.8); Eosinophils % (auto) 3.8 % (0.0-7.0); Hematocrit 38.5 % (41.0-53.0); Hemoglobin 12.9 g/dL (13.5-17.5); Lymphocytes # (auto) 1.7 10 ^3/uL (0.4-5.4); Lymphocytes % (auto) 19.2 % (10.0-50.0); Mean Corpuscular Hemoglobin 28.7 pg (28.0-32.0); Mean Corpuscular Hgb Conc. 33.4 g/dL (32.0-36.0); Mean Corpuscular Volume 85.9 fL (80.0-100.0); Monocytes # (auto) 0.8 10 ^3/uL (0-1.3); Neutrophils # (auto) 6.1 10 ^3/uL (1.6-8.6); Neutrophils % (auto) 67.6 % (37.0-80.0); Nucleated Red Blood Cells % 0.6 %; Platelet Count (auto) 243 10^3/uL (140-450); Red Blood Cells 4.48 10^6/uL (4.5-5.90); White Blood Cell 9.1 10^3/uL (4.4-10.8)
--- NOTE | 2024-06-27 14:34 | DVHPN2 ---
Progress Note - Dictate Date Seen: June 27, 2024 Has the PT tested + for MRSA If YES, has PT been informed?: No Medical Necessity Reason Pt with a Central, PICC or Fol: No Subjective No new complaints Patient tolerating diet Pain and swelling in right extremity Continues to be noncompliant sometimes with medical management vital signs Vital Sign Date Time Temp Pulse Resp B/P (MAP) Pulse Ox O2 Delivery O2 Flow Rate FiO2 06/27/24 12:30 98.1 54 17 150/85 (106) 93 98.1 06/27/24 07:43 Room Air* 0 21 Total Intake and Output 06/26/24 06/26/24 06/27/24 15:00 23:00 07:00 Intake Total 50 ml 800 ml 100 ml Balance 50 ml 800 ml 100 ml medications Current Medications Medications Dose Ordered Sig/Armando Route Start Time Stop Time Status Last Admin Dose Admin Ondansetron HCl 4 mg Q4HP PRN IV 06/22/24 11:15 06/25/24 02:20 4 MG Enoxaparin Sodium 40 mg DAILY SC 06/23/24 10:00 06/27/24 09:30 40 MG Acetaminophen 650 mg Q6HP PRN PO 06/22/24 11:15 Allopurinol 100 mg DAILY PO 06/23/24 10:00 06/27/24 09:32 100 MG Metoprolol Tartrate 50 mg BID PO 06/22/24 22:00 06/27/24 09:31 50 MG Atorvastatin Calcium 40 mg HS PO 06/22/24 22:00 06/26/24 20:57 40 MG Valsartan 320 mg DAILY PO 06/22/24 11:48 06/27/24 09:31 320 MG Ceftriaxone Sodium 50 ml @ 100 mls/hr DAILY@09 IV 06/23/24 09:00 06/27/24 09:29 100 MLS/HR Hydralazine HCl 10 mg Q6HPRN PRN IV 06/22/24 16:15 06/27/24 06:00 10 MG Patient Own Medication 1 HS EACHEYE 06/23/24 22:00 06/26/24 21:11 1 Vancomycin HCl 0 ml @ 0 mls/hr UD IV 06/23/24 12:15 Acetaminophen/ Hydrocodone Bitart 1 tab Q6HP PRN PO 06/23/24 12:15 06/27/24 09:32 1 TAB Vancomycin HCl 200 ml @ 200 mls/hr DAILY@1300 IV 06/24/24 13:00 06/27/24 13:14 200 MLS/HR Enteral Nutritional Formula 240 ml TIDWM PO 06/24/24 18:00 06/27/24 12:14 240 ML Aspirin 81 mg DAILY PO 06/25/24 10:00 06/27/24 09:31 81 MG Clopidogrel Bisulfate 75 mg DAILY PO 06/25/24 10:00 06/27/24 09:32 75 MG Pantoprazole Sodium 40 mg DAILY IV 06/26/24 10:00 06/27/24 09:29 40 MG Sucralfate 1 gm TID@0600,1130,2200 PO 06/26/24 06:00 06/27/24 11:21 1 GM objective General Appearance: Alert, Oriented X3, Cooperative, No acute distress HEENT: Atraumatic, PERRLA, EOMI, Mucous membrane moist/pink Respiratory: Clear to auscultation, Normal air movement Cardiovascular: Regular rate, Normal S1, Normal S2, No murmurs, no chest wall tenderness Abdominal: Normal bowel sounds, Soft, No tenderness, No hepatospenomegaly, No masses Extremities: No clubbing, No cyanosis, No edema, Normal pulses, Right leg swelling and edema function to ankle Skin: No rashes, No breakdown, No significant lesion Neuro: Normal gait, Normal speech, Strength at 5/5 X4 ext, Normal tone, Sensation intact, Cranial nerves 3-12 NL, Reflexes 2+ Psych/Mental Status: Mental status NL, Mood NL laboratory and microbiology Laboratory Tests 06/27/24 06:35 Test 06/27/24 06:35 Range/Units Serum Glucose 111 H 74-106 mg/dL Lower Extremity CT IMPRESSION: 1. Large, 9.1 x 4.3 cm subcutaneous hematoma in the anterior mid leg with surrounding subcutaneous edema and skin ulceration at the inferior aspect of the hematoma. No soft tissue gas or foreign body. 2. No acute osseous abnormality. 3. Peripheral arterial disease. CT SCAN ABD PELVIS IMPRESSION: 1. Duodenal wall thickening. Correlate for duodenitis. 2. Hydropic /distended gallbladder. Recommend abdominal ultrasound for further characterization. 3. Colonic diverticular disease. Mild stranding surrounding the sigmoid colon diverticula, may represent diverticulitis. 4. Average right subclavian artery that is retroesophageal. 5. Right inguinal hernia containing small bowel loops without evidence for bowel obstruction, measuring 13.9 x 6.7 cm. 6. Bladder diverticulum versus ureterocele as described. Recommend urology consultation for further evaluation. 7. Prostatomegaly. Correlate with PSA levels. 8. Tiny bilateral pleural effusions. 9. Right renal cortical thinning / severe atrophy. 10. Other findings as described Problems(with codes): (1) Peripheral neuropathy (2) Skin infection (3) Dysphagia (4) Hypercalcemia (5) Hypertensive emergency (6) Cellulitis Prognosis Plan Continue Protonix 40 mg IV daily Diet as tolerated Patient not a candidate for an endoscopy at this time Continue IV antibiotics for cellulitis and possible subclinical diverticulitis Hydrops gallbladder and distention but liver enzymes are normal Continue supportive care Surgical consult has seen patient Awaiting possible vascular surgery consult and possible drainage of hematoma Dietary Evaluation Review Recommendations by RD: Increase Calorie Intake Comments: 1) Initiate Ensure Enlive bid. Encourage optimal PO intake 2) Consider removing cardiac restriction from diet d/t decreased appetite and advanced age 3) Initiate vitamin C @ 500 mg bid and zinc sulfate @ 220 mg qd for 7-10 days 4) Follow-up with cardiology and nephrology 5) Continue to monitor I&O, labs, and skin integrity Expected Outcomes/Goals: 1) appetite and labs to improve 2) wound to improve 3) follow-up in 3-5 days Plan discussed with: Patient LINO FITZGERALD MD June 27, 2024 14:34
--- NOTE | 2024-06-27 15:02 | DVHPN2 ---
Subjective Complains of pain and swelling in his right leg Changes from previous H/P or p: Changes Musculoskeletal: arm pain, leg pain Objective Vitals Vital Signs Date Time Temp Pulse Resp B/P (MAP) Pulse Ox O2 Delivery O2 Flow Rate FiO2 06/27/24 12:30 98.1 54 17 150/85 (106) 93 98.1 06/27/24 07:43 Room Air* 0 21 Intake/Output Intake and Output 06/27/24 07:00 Intake Total 950 ml Balance 950 ml Intake Oral 700 ml IV Total 250 ml # Voids 1 # Bowel Movements 1 General Appearance: Alert, Oriented X3, Cooperative Extremities: Other (Right lower extremity with redness and swelling around the miguel area down to the ankleBilateral 2+ edema ) Medications Current Medications Medications Dose Ordered Sig/Armando Route Start Time Stop Time Status Last Admin Dose Admin Ondansetron HCl 4 mg Q4HP PRN IV 06/22/24 11:15 06/25/24 02:20 4 MG Enoxaparin Sodium 40 mg DAILY SC 06/23/24 10:00 06/27/24 09:30 40 MG Acetaminophen 650 mg Q6HP PRN PO 06/22/24 11:15 Allopurinol 100 mg DAILY PO 06/23/24 10:00 06/27/24 09:32 100 MG Metoprolol Tartrate 50 mg BID PO 06/22/24 22:00 06/27/24 09:31 50 MG Atorvastatin Calcium 40 mg HS PO 06/22/24 22:00 06/26/24 20:57 40 MG Valsartan 320 mg DAILY PO 06/22/24 11:48 06/27/24 09:31 320 MG Ceftriaxone Sodium 50 ml @ 100 mls/hr DAILY@09 IV 06/23/24 09:00 06/27/24 09:29 100 MLS/HR Hydralazine HCl 10 mg Q6HPRN PRN IV 06/22/24 16:15 06/27/24 06:00 10 MG Patient Own Medication 1 HS EACHEYE 06/23/24 22:00 06/26/24 21:11 1 Vancomycin HCl 0 ml @ 0 mls/hr UD IV 06/23/24 12:15 Acetaminophen/ Hydrocodone Bitart 1 tab Q6HP PRN PO 06/23/24 12:15 06/27/24 09:32 1 TAB Vancomycin HCl 200 ml @ 200 mls/hr DAILY@1300 IV 06/24/24 13:00 06/27/24 13:14 200 MLS/HR Enteral Nutritional Formula 240 ml TIDWM PO 06/24/24 18:00 06/27/24 12:14 240 ML Aspirin 81 mg DAILY PO 06/25/24 10:00 06/27/24 09:31 81 MG Clopidogrel Bisulfate 75 mg DAILY PO 06/25/24 10:00 06/27/24 09:32 75 MG Pantoprazole Sodium 40 mg DAILY IV 06/26/24 10:00 06/27/24 09:29 40 MG Sucralfate 1 gm TID@0600,1130,2200 PO 06/26/24 06:00 06/27/24 11:21 1 GM Laboratory Results Laboratory Tests 06/27/24 06:35 Chemistry Test 06/27/24 06:35 Albumin 3.5 g/dL (3.2-4.8) Calcium Level 9.7 mg/dL (8.7-10.4) Magnesium Level 2.2 mg/dL (1.6-2.6) Total Protein 5.7 g/dL (5.7-8.2) Coagulation Test 06/27/24 06:35 Prothrombin Time 11.7 sec (9.3-11.8) Prothrombin Time INR 1.12 (0.9-1.15) Activated Partial Thromboplast Time 32.9 SEC (24.5-34.5) LFT Test 06/27/24 06:35 Alanine Aminotransferase (ALT) 30 U/L (7-40) Alkaline Phosphatase 76 U/L (46-116) Aspartate Amino Transferase (AST) 43 U/L (13-40) H Total Bilirubin 0.8 mg/dL (0.2-1.0) Microbiology Microbiology Date/Time Source Procedure Growth Status 06/22/24 14:30 Leg Right Gram Stain - Final Complete 06/22/24 14:30 Wound Culture - Final Enterococcus faecalis Complete 06/22/24 09:50 Blood Blood Culture - Final NO GROWTH AFTER 5 DAYS OF INCUBATION. Complete Assessment/Plan Assessment/Plan Right lower extremity cellulitis Bilateral lower extremity edema rule out heart failure Hypertension History of coronary artery disease Rule out heart failure Hard of hearing Hypokalemia Acute on chronic diastolic heart failure Severe pulmonary hypertension Severe critical aortic stenosis Plan IV antibiotics Rocephin and vancomycin Start IV Lasix Get an echocardiogram Monitor the high blood pressure Metoprolol and valsartan Discussed with the POA at the bedside Full code 06/24/2024: Add ensure Continue IV antibiotics Diastolic heart failure: Continue Lasix Echocardiogram showed moderate diastolic dysfunction with an ejection fraction of 65% and heavily calcified aortic valve with a critical aortic stenosis, also critical pulmonary hypertension RV SP is 81 Hypomagnesemia: Replace Hypokalemia: Replace Chronic kidney disease: Creatinine 1.3, GFR 53 06/25/2024: NSTEMI: Aspirin, Plavix, Critical aortic stenosis Diastolic heart failure , acute on chronic: Lasix, changed to p.o., cut down on dose Critical pulmonary hypertension History of CAD Hypertensive emergency Hypokalemia : Replace Right lower extremity cellulitis : Ceftriaxone and vancomycin Sepsis : Continue IV antibiotic Hypomagnesemia : Replace as needed Lipitor new Dysphagia: Start Protonix IV, consult GI 06/26/2024: Abscess or hematoma of the right leg: Consult surgery Cellulitis of the right lower extremity: Continue IV antibiotics Critical aortic stenosis Critical pulmonary hypertension Dysphagia Hypokalemia Sepsis 06/27/2024: Right lower extremity cellulitis: Continue IV antibiotic Rocephin and vancomycin Hematoma of the right lower extremity: Surgery consulted, conservative treatment Dysphagia: Continue sucralfate Hypertension: Continue metoprolol and Diovan NSTEMI: Continue aspirin and Plavix Monitor closely Guarded prognosis Plan discussed with: Patient My Orders Orders - CHONG CANADA MD Procedure Category Date Status Time Vancomycin,Trough LAB 06/29/24 Verified 12:00 Vancomycin Per HEATH 06/29/24 In Process Pharmacy Protoc 12:00 * Surgical Consult CONS 06/26/24 Transmitted Date of Service: June 27, 2024 Billing Provider: CHONG CANADA MD Common Visit Codes: NOT BILLABLE CHONG CANADA MD June 27, 2024 15:02
[2024-06-28] VITALS (10 sets, daily range): BP systolic 132–174; BP diastolic 54–72; PULSE 16–81; RESP 16–18; TEMP 97.6–98.9; O2SAT 94–99
[2024-06-28 07:10] LABS: Basophils # (auto) 0.1 10 ^3/uL (0-0.2); Basophils % (auto) 1.3 % (0.0-2.0); Eosinophils # (auto) 0.3 10 ^3/uL (0-0.8); Eosinophils % (auto) 4.4 % (0.0-7.0); Hemoglobin 12.4 g/dL (13.5-17.5); Lymphocytes # (auto) 1.3 10 ^3/uL (0.4-5.4); Lymphocytes % (auto) 17.1 % (10.0-50.0); Mean Corpuscular Hemoglobin 28.5 pg (28.0-32.0); Mean Corpuscular Hgb Conc. 33.6 g/dL (32.0-36.0); Monocytes # (auto) 0.8 10 ^3/uL (0-1.3); Monocytes % (auto) 9.9 % (0.0-12.0); Neutrophils # (auto) 5.3 10 ^3/uL (1.6-8.6); Neutrophils % (auto) 67.3 % (37.0-80.0); Platelet Count (auto) 217 10^3/uL (140-450); Red Blood Cells 4.36 10^6/uL (4.5-5.90); Red Cell Distribution Width 14.9 % (11.8-14.3); White Blood Cell 7.9 10^3/uL (4.4-10.8)
--- NOTE | 2024-06-28 12:02 | DVHPN2 ---
Progress Note - Dictate Date Seen: June 28, 2024 Has the PT tested + for MRSA If YES, has PT been informed?: No Medical Necessity Reason Pt with a Central, PICC or Fol: No Subjective No new complaints Patient tolerating diet Pain and swelling in right extremity vital signs Vital Sign Date Time Temp Pulse Resp B/P (MAP) Pulse Ox O2 Delivery O2 Flow Rate FiO2 06/28/24 09:53 69 161/54 06/28/24 09:00 97.8 18 95 97.8 06/27/24 20:00 Room Air* 0 21 Total Intake and Output 06/27/24 06/27/24 06/28/24 15:00 23:00 07:00 Intake Total 250 ml 800 ml 150 ml Output Total 200 ml Balance 250 ml 800 ml -50 ml medications Current Medications Medications Dose Ordered Sig/Armando Route Start Time Stop Time Status Last Admin Dose Admin Ondansetron HCl 4 mg Q4HP PRN IV 06/22/24 11:15 06/25/24 02:20 4 MG Enoxaparin Sodium 40 mg DAILY SC 06/23/24 10:00 06/28/24 09:52 40 MG Acetaminophen 650 mg Q6HP PRN PO 06/22/24 11:15 Allopurinol 100 mg DAILY PO 06/23/24 10:00 06/28/24 09:52 100 MG Metoprolol Tartrate 50 mg BID PO 06/22/24 22:00 06/28/24 09:53 50 MG Atorvastatin Calcium 40 mg HS PO 06/22/24 22:00 06/27/24 22:37 40 MG Valsartan 320 mg DAILY PO 06/22/24 11:48 06/28/24 09:52 320 MG Ceftriaxone Sodium 50 ml @ 100 mls/hr DAILY@09 IV 06/23/24 09:00 06/28/24 09:51 100 MLS/HR Hydralazine HCl 10 mg Q6HPRN PRN IV 06/22/24 16:15 06/27/24 16:10 10 MG Patient Own Medication 1 HS EACHEYE 06/23/24 22:00 06/27/24 22:41 1 Vancomycin HCl 0 ml @ 0 mls/hr UD IV 06/23/24 12:15 Acetaminophen/ Hydrocodone Bitart 1 tab Q6HP PRN PO 06/23/24 12:15 06/28/24 07:18 1 TAB Vancomycin HCl 200 ml @ 200 mls/hr DAILY@1300 IV 06/24/24 13:00 06/27/24 13:14 200 MLS/HR Enteral Nutritional Formula 240 ml TIDWM PO 06/24/24 18:00 06/28/24 09:39 240 ML Aspirin 81 mg DAILY PO 06/25/24 10:00 06/28/24 09:53 81 MG Clopidogrel Bisulfate 75 mg DAILY PO 06/25/24 10:00 06/28/24 09:52 75 MG Pantoprazole Sodium 40 mg DAILY IV 06/26/24 10:00 06/28/24 09:51 40 MG Sucralfate 1 gm TID@0600,1130,2200 PO 06/26/24 06:00 06/28/24 06:24 1 GM objective General Appearance: Alert, Oriented X3, Cooperative, No acute distress HEENT: Atraumatic, PERRLA, EOMI, Mucous membrane moist/pink Respiratory: Clear to auscultation, Normal air movement Cardiovascular: Regular rate, Normal S1, Normal S2, No murmurs, no chest wall tenderness Abdominal: Normal bowel sounds, Soft, No tenderness, No hepatospenomegaly, No masses Extremities: No clubbing, No cyanosis, No edema, Normal pulses, Right leg swelling and edema function to ankle Skin: No rashes, No breakdown, No significant lesion Neuro: Normal gait, Normal speech, Strength at 5/5 X4 ext, Normal tone, Sensation intact, Cranial nerves 3-12 NL, Reflexes 2+ Psych/Mental Status: Mental status NL, Mood NL laboratory and microbiology Laboratory Tests 06/28/24 04:56 06/27/24 06:35 Test 06/27/24 06:35 Range/Units Serum Glucose 111 H 74-106 mg/dL Lower extremity CT IMPRESSION: 1. Large, 9.1 x 4.3 cm subcutaneous hematoma in the anterior mid leg with surrounding subcutaneous edema and skin ulceration at the inferior aspect of the hematoma. No soft tissue gas or foreign body. 2. No acute osseous abnormality. 3. Peripheral arterial disease. Problems(with codes): (1) Hematoma of lower extremity (2) Peripheral neuropathy (3) Skin infection (4) Dysphagia (5) Hypercalcemia (6) Hypertensive emergency (7) Cellulitis Prognosis Plan Continue Protonix 40 mg IV daily and sucralfate Diet as tolerated Patient not a candidate for an endoscopy at this time Continue IV antibiotics for cellulitis and possible subclinical diverticulitis Hydrops gallbladder and distention but liver enzymes are normal Continue supportive care Surgical consult has seen patient for hematoma lower extremity Awaiting possible vascular surgery consult and possible drainage of hematoma Dietary Evaluation Review Recommendations by RD: Increase Calorie Intake Comments: 1) Initiate Ensure Enlive bid. Encourage optimal PO intake 2) Consider removing cardiac restriction from diet d/t decreased appetite and advanced age 3) Initiate vitamin C @ 500 mg bid and zinc sulfate @ 220 mg qd for 7-10 days 4) Follow-up with cardiology and nephrology 5) Continue to monitor I&O, labs, and skin integrity Expected Outcomes/Goals: 1) appetite and labs to improve 2) wound to improve 3) follow-up in 3-5 days Plan discussed with: Patient LION FITZGERALD MD June 28, 2024 12:02
--- NOTE | 2024-06-28 16:28 | DVHPN2 ---
Subjective Pain in the right leg is better Less edema Changes from previous H/P or p: Changes Musculoskeletal: arm pain, leg pain Objective Vitals Vital Signs Date Time Temp Pulse Resp B/P (MAP) Pulse Ox O2 Delivery O2 Flow Rate FiO2 06/28/24 13:00 97.6 16 153/58 (89) 94 97.6 06/28/24 09:00 18 06/28/24 08:00 Room Air* 0 21 Intake/Output Intake and Output 06/28/24 07:00 Intake Total 1200 ml Output Total 200 ml Balance 1000 ml Intake Oral 950 ml IV Total 250 ml Output Urine Total 200 ml # Voids 5 # Bowel Movements 1 General Appearance: Alert, Oriented X3, Cooperative Extremities: Other (Right lower extremity with redness and swelling around the miguel area down to the ankleBilateral 2+ edema ) Medications Current Medications Medications Dose Ordered Sig/Armando Route Start Time Stop Time Status Last Admin Dose Admin Ondansetron HCl 4 mg Q4HP PRN IV 06/22/24 11:15 06/25/24 02:20 4 MG Enoxaparin Sodium 40 mg DAILY SC 06/23/24 10:00 06/28/24 09:52 40 MG Acetaminophen 650 mg Q6HP PRN PO 06/22/24 11:15 Allopurinol 100 mg DAILY PO 06/23/24 10:00 06/28/24 09:52 100 MG Metoprolol Tartrate 50 mg BID PO 06/22/24 22:00 06/28/24 09:53 50 MG Atorvastatin Calcium 40 mg HS PO 06/22/24 22:00 06/27/24 22:37 40 MG Valsartan 320 mg DAILY PO 06/22/24 11:48 06/28/24 09:52 320 MG Ceftriaxone Sodium 50 ml @ 100 mls/hr DAILY@09 IV 06/23/24 09:00 06/28/24 09:51 100 MLS/HR Hydralazine HCl 10 mg Q6HPRN PRN IV 06/22/24 16:15 06/27/24 16:10 10 MG Patient Own Medication 1 HS EACHEYE 06/23/24 22:00 06/27/24 22:41 1 Vancomycin HCl 0 ml @ 0 mls/hr UD IV 06/23/24 12:15 Acetaminophen/ Hydrocodone Bitart 1 tab Q6HP PRN PO 06/23/24 12:15 5/16/25 15:31 1 TAB Vancomycin HCl 200 ml @ 200 mls/hr DAILY@1300 IV 06/24/24 13:00 06/28/24 13:06 200 MLS/HR Enteral Nutritional Formula 240 ml TIDWM PO 06/24/24 18:00 06/28/24 09:39 240 ML Aspirin 81 mg DAILY PO 06/25/24 10:00 06/28/24 09:53 81 MG Clopidogrel Bisulfate 75 mg DAILY PO 06/25/24 10:00 06/28/24 09:52 75 MG Pantoprazole Sodium 40 mg DAILY IV 06/26/24 10:00 06/28/24 09:51 40 MG Sucralfate 1 gm TID@0600,1130,2200 PO 06/26/24 06:00 06/28/24 13:05 1 GM Laboratory Results Laboratory Tests 06/27/24 06:35 06/28/24 04:56 Microbiology Microbiology Date/Time Source Procedure Growth Status 06/22/24 14:30 Leg Right Gram Stain - Final Complete 06/22/24 14:30 Wound Culture - Final Enterococcus faecalis Complete 06/22/24 09:50 Blood Blood Culture - Final NO GROWTH AFTER 5 DAYS OF INCUBATION. Complete Assessment/Plan Assessment/Plan Right lower extremity cellulitis Bilateral lower extremity edema rule out heart failure Hypertension History of coronary artery disease Rule out heart failure Hard of hearing Hypokalemia Acute on chronic diastolic heart failure Severe pulmonary hypertension Severe critical aortic stenosis Plan IV antibiotics Rocephin and vancomycin Start IV Lasix Get an echocardiogram Monitor the high blood pressure Metoprolol and valsartan Discussed with the POA at the bedside Full code 06/24/2024: Add ensure Continue IV antibiotics Diastolic heart failure: Continue Lasix Echocardiogram showed moderate diastolic dysfunction with an ejection fraction of 65% and heavily calcified aortic valve with a critical aortic stenosis, also critical pulmonary hypertension RV SP is 81 Hypomagnesemia: Replace Hypokalemia: Replace Chronic kidney disease: Creatinine 1.3, GFR 53 06/25/2024: NSTEMI: Aspirin, Plavix, Critical aortic stenosis Diastolic heart failure , acute on chronic: Lasix, changed to p.o., cut down on dose Critical pulmonary hypertension History of CAD Hypertensive emergency Hypokalemia : Replace Right lower extremity cellulitis : Ceftriaxone and vancomycin Sepsis : Continue IV antibiotic Hypomagnesemia : Replace as needed Lipitor new Dysphagia: Start Protonix IV, consult GI 06/26/2024: Abscess or hematoma of the right leg: Consult surgery Cellulitis of the right lower extremity: Continue IV antibiotics Critical aortic stenosis Critical pulmonary hypertension Dysphagia Hypokalemia Sepsis 06/27/2024: Right lower extremity cellulitis: Continue IV antibiotic Rocephin and vancomycin Hematoma of the right lower extremity: Surgery consulted, conservative treatment Dysphagia: Continue sucralfate Hypertension: Continue metoprolol and Diovan NSTEMI: Continue aspirin and Plavix Monitor closely Guarded prognosis 06/28/24: Continue IV antibiotics Cough: Med Nebs Pain control: [place] prn Physical therapy eval Plan discussed with: Patient, Spouse My Orders Orders - CHONG CANADA MD Procedure Category Date Status Time Pt Request For Service PT 06/28/24 Logged 12:24 Albuterol Medneb PHA 06/28/24 Transmitted (Ventolin Medneb) 18:00 Date of Service: June 28, 2024 Billing Provider: CHONG CANADA MD Common Visit Codes: NOT BILLABLE CHONG CANADA MD June 28, 2024 16:28
[2024-06-28] MEDS: ALBUTEROL SULF 2.5 MG/0.5ML(0.5%) NEB SOLN NEB SCH (19:36)
[2024-06-29] VITALS (16 sets, daily range): BP systolic 126–165; BP diastolic 44–60; PULSE 62–96; RESP 14–18; TEMP 97.1–98.4; O2SAT 93–99
[2024-06-29] MEDS: ALBUTEROL SULF 2.5 MG/0.5ML(0.5%) NEB SOLN ONE (11:04)
--- NOTE | 2024-06-29 17:54 | DVHPN2 ---
Subjective Pain in the right leg is better Less edema No change Changes from previous H/P or p: Changes Musculoskeletal: arm pain, leg pain Objective Vitals Vital Signs Date Time Temp Pulse Resp B/P (MAP) Pulse Ox O2 Delivery O2 Flow Rate FiO2 06/29/24 17:10 163/51 06/29/24 17:00 97.1 62 18 95 97.1 06/29/24 11:18 Room Air* 0 21 Intake/Output Intake and Output 06/29/24 07:00 Intake Total 1850 ml Output Total 750 ml Balance 1100 ml Intake Oral 1600 ml IV Total 250 ml Output Urine Total 750 ml # Bowel Movements 1 General Appearance: Alert, Oriented X3, Cooperative Extremities: Other (Right lower extremity with redness and swelling around the miguel area down to the ankleBilateral 2+ edema ) Medications Current Medications Medications Dose Ordered Sig/Armando Route Start Time Stop Time Status Last Admin Dose Admin Ondansetron HCl 4 mg Q4HP PRN IV 06/22/24 11:15 06/25/24 02:20 4 MG Enoxaparin Sodium 40 mg DAILY SC 06/23/24 10:00 06/29/24 08:38 40 MG Acetaminophen 650 mg Q6HP PRN PO 06/22/24 11:15 Allopurinol 100 mg DAILY PO 06/23/24 10:00 06/29/24 08:37 100 MG Metoprolol Tartrate 50 mg BID PO 06/22/24 22:00 06/29/24 08:38 50 MG Atorvastatin Calcium 40 mg HS PO 06/22/24 22:00 06/28/24 21:11 40 MG Valsartan 320 mg DAILY PO 06/22/24 11:48 06/29/24 08:37 320 MG Ceftriaxone Sodium 50 ml @ 100 mls/hr DAILY@09 IV 06/23/24 09:00 06/29/24 08:36 100 MLS/HR Hydralazine HCl 10 mg Q6HPRN PRN IV 06/22/24 16:15 06/29/24 17:10 10 MG Patient Own Medication 1 HS EACHEYE 06/23/24 22:00 06/29/24 00:19 1 Vancomycin HCl 0 ml @ 0 mls/hr UD IV 06/23/24 12:15 Acetaminophen/ Hydrocodone Bitart 1 tab Q6HP PRN PO 06/23/24 12:15 06/29/24 11:59 1 TAB Vancomycin HCl 200 ml @ 200 mls/hr DAILY@1300 IV 06/24/24 13:00 06/29/24 12:01 200 MLS/HR Enteral Nutritional Formula 240 ml TIDWM PO 06/24/24 18:00 06/29/24 17:52 240 ML Aspirin 81 mg DAILY PO 06/25/24 10:00 06/29/24 08:38 81 MG Clopidogrel Bisulfate 75 mg DAILY PO 06/25/24 10:00 06/29/24 08:38 75 MG Pantoprazole Sodium 40 mg DAILY IV 06/26/24 10:00 06/29/24 08:39 40 MG Sucralfate 1 gm TID@0600,1130,2200 PO 06/26/24 06:00 06/29/24 11:59 1 GM Albuterol 2.5 mg Q6HWA NEB 06/28/24 18:00 06/29/24 11:18 2.5 MG Laboratory Results Laboratory Tests 06/27/24 06:35 06/28/24 04:56 06/29/24 12:01 Microbiology Microbiology Date/Time Source Procedure Growth Status 06/22/24 14:30 Leg Right Gram Stain - Final Complete 06/22/24 14:30 Wound Culture - Final Enterococcus faecalis Complete 06/22/24 09:50 Blood Blood Culture - Final NO GROWTH AFTER 5 DAYS OF INCUBATION. Complete Assessment/Plan Assessment/Plan Right lower extremity cellulitis Bilateral lower extremity edema rule out heart failure Hypertension History of coronary artery disease Rule out heart failure Hard of hearing Hypokalemia Acute on chronic diastolic heart failure Severe pulmonary hypertension Severe critical aortic stenosis Plan IV antibiotics Rocephin and vancomycin Start IV Lasix Get an echocardiogram Monitor the high blood pressure Metoprolol and valsartan Discussed with the POA at the bedside Full code 06/24/2024: Add ensure Continue IV antibiotics Diastolic heart failure: Continue Lasix Echocardiogram showed moderate diastolic dysfunction with an ejection fraction of 65% and heavily calcified aortic valve with a critical aortic stenosis, also critical pulmonary hypertension RV SP is 81 Hypomagnesemia: Replace Hypokalemia: Replace Chronic kidney disease: Creatinine 1.3, GFR 53 06/25/2024: NSTEMI: Aspirin, Plavix, Critical aortic stenosis Diastolic heart failure , acute on chronic: Lasix, changed to p.o., cut down on dose Critical pulmonary hypertension History of CAD Hypertensive emergency Hypokalemia : Replace Right lower extremity cellulitis : Ceftriaxone and vancomycin Sepsis : Continue IV antibiotic Hypomagnesemia : Replace as needed Lipitor new Dysphagia: Start Protonix IV, consult GI 06/26/2024: Abscess or hematoma of the right leg: Consult surgery Cellulitis of the right lower extremity: Continue IV antibiotics Critical aortic stenosis Critical pulmonary hypertension Dysphagia Hypokalemia Sepsis 06/27/2024: Right lower extremity cellulitis: Continue IV antibiotic Rocephin and vancomycin Hematoma of the right lower extremity: Surgery consulted, conservative treatment Dysphagia: Continue sucralfate Hypertension: Continue metoprolol and Diovan NSTEMI: Continue aspirin and Plavix Monitor closely Guarded prognosis 06/28/24: Continue IV antibiotics Cough: Med Nebs Pain control: [place] prn Physical therapy eval 06/29/2024: Continue IV antibiotics and if the hematoma in the right leg does not improve or becomes worse then we will have to call Orthopedic surgery per the recommendation of Dr. Kalia Delgado Plan discussed with: Patient, Spouse My Orders Orders - CHONG CANADA MD Procedure Category Date Status Time Complete Blood Count LAB 06/30/24 Verified 04:00 Creatinine LAB 06/30/24 Verified 04:00 Vancomycin,Trough LAB 07/03/24 Verified 12:00 Vancomycin Per HEATH 06/29/24 In Process Pharmacy [facility] 17:35 Date of Service: June 29, 2024 Billing Provider: CHONG CANADA MD Common Visit Codes: NOT BILLABLE CHONG CANADA MD June 29, 2024 17:54
[2024-06-30] VITALS (16 sets, daily range): BP systolic 141–166; BP diastolic 42–84; PULSE 63–84; RESP 14–20; TEMP 97.5–98.1; O2SAT 94–100
[2024-06-30 07:29] LABS: Basophils # (auto) 0.1 10 ^3/uL (0-0.2); Basophils % (auto) 1.1 % (0.0-2.0); Eosinophils # (auto) 0.4 10 ^3/uL (0-0.8); Eosinophils % (auto) 3.9 % (0.0-7.0); Hematocrit 36.6 % (41.0-53.0); Hemoglobin 12.4 g/dL (13.5-17.5); Lymphocytes # (auto) 1.5 10 ^3/uL (0.4-5.4); Lymphocytes % (auto) 16.3 % (10.0-50.0); Mean Corpuscular Hemoglobin 28.8 pg (28.0-32.0); Mean Corpuscular Hgb Conc. 33.8 g/dL (32.0-36.0); Mean Corpuscular Volume 85.1 fL (80.0-100.0); Monocytes # (auto) 0.7 10 ^3/uL (0-1.3); Monocytes % (auto) 7.6 % (0.0-12.0); Neutrophils # (auto) 6.3 10 ^3/uL (1.6-8.6); Neutrophils % (auto) 71.1 % (37.0-80.0); Platelet Count (auto) 241 10^3/uL (140-450); Red Cell Distribution Width 14.8 % (11.8-14.3); White Blood Cell 8.9 10^3/uL (4.4-10.8)
--- NOTE | 2024-06-30 14:22 | DVHPN2 ---
Subjective Pain in the right leg is better Less edema No change Changes from previous H/P or p: No Changes Musculoskeletal: arm pain, leg pain Objective Vitals Vital Signs Date Time Temp Pulse Resp B/P (MAP) Pulse Ox O2 Delivery O2 Flow Rate FiO2 06/30/24 11:51 74 14 100 06/30/24 11:50 Room Air* 0 21 06/30/24 09:11 138/61 06/30/24 09:00 97.5 97.5 Intake/Output Intake and Output 06/30/24 07:00 Intake Total 1000 ml Output Total 860 ml Balance 140 ml Intake Oral 800 ml IV Total 200 ml Output Urine Total 860 ml # Bowel Movements 5 General Appearance: Alert, Oriented X3, Cooperative Extremities: Other (Right lower extremity with redness and swelling around the miguel area down to the ankleBilateral 2+ edema ) Medications Current Medications Medications Dose Ordered Sig/Armando Route Start Time Stop Time Status Last Admin Dose Admin Ondansetron HCl 4 mg Q4HP PRN IV 06/22/24 11:15 06/25/24 02:20 4 MG Enoxaparin Sodium 40 mg DAILY SC 06/23/24 10:00 06/30/24 09:07 40 MG Acetaminophen 650 mg Q6HP PRN PO 06/22/24 11:15 Allopurinol 100 mg DAILY PO 06/23/24 10:00 06/30/24 09:10 100 MG Metoprolol Tartrate 50 mg BID PO 06/22/24 22:00 06/30/24 09:09 50 MG Atorvastatin Calcium 40 mg HS PO 06/22/24 22:00 06/29/24 21:30 40 MG Valsartan 320 mg DAILY PO 06/22/24 11:48 06/30/24 09:11 320 MG Ceftriaxone Sodium 50 ml @ 100 mls/hr DAILY@09 IV 06/23/24 09:00 06/30/24 09:06 100 MLS/HR Hydralazine HCl 10 mg Q6HPRN PRN IV 06/22/24 16:15 06/30/24 05:21 10 MG Patient Own Medication 1 HS EACHEYE 06/23/24 22:00 06/29/24 21:34 1 Vancomycin HCl 0 ml @ 0 mls/hr UD IV 06/23/24 12:15 Acetaminophen/ Hydrocodone Bitart 1 tab Q6HP PRN PO 06/23/24 12:15 06/30/24 13:26 1 TAB Vancomycin HCl 200 ml @ 200 mls/hr DAILY@1300 IV 06/24/24 13:00 06/29/24 12:01 200 MLS/HR Enteral Nutritional Formula 240 ml TIDWM PO 06/24/24 18:00 06/30/24 08:00 240 ML Aspirin 81 mg DAILY PO 06/25/24 10:00 06/30/24 09:10 81 MG Clopidogrel Bisulfate 75 mg DAILY PO 06/25/24 10:00 06/30/24 09:41 75 MG Pantoprazole Sodium 40 mg DAILY IV 06/26/24 10:00 06/30/24 09:06 40 MG Sucralfate 1 gm TID@0600,1130,2200 PO 06/26/24 06:00 06/30/24 12:02 1 GM Albuterol 2.5 mg Q6HWA NEB 06/28/24 18:00 06/30/24 11:42 2.5 MG Laboratory Results Laboratory Tests 06/27/24 06:35 06/30/24 06:53 Microbiology Microbiology Date/Time Source Procedure Growth Status 06/22/24 14:30 Leg Right Gram Stain - Final Complete 06/22/24 14:30 Wound Culture - Final Enterococcus faecalis Complete 06/22/24 09:50 Blood Blood Culture - Final NO GROWTH AFTER 5 DAYS OF INCUBATION. Complete Assessment/Plan Assessment/Plan Right lower extremity cellulitis Bilateral lower extremity edema rule out heart failure Hypertension History of coronary artery disease Rule out heart failure Hard of hearing Hypokalemia Acute on chronic diastolic heart failure Severe pulmonary hypertension Severe critical aortic stenosis Plan IV antibiotics Rocephin and vancomycin Start IV Lasix Get an echocardiogram Monitor the high blood pressure Metoprolol and valsartan Discussed with the POA at the bedside Full code 06/24/2024: Add ensure Continue IV antibiotics Diastolic heart failure: Continue Lasix Echocardiogram showed moderate diastolic dysfunction with an ejection fraction of 65% and heavily calcified aortic valve with a critical aortic stenosis, also critical pulmonary hypertension RV SP is 81 Hypomagnesemia: Replace Hypokalemia: Replace Chronic kidney disease: Creatinine 1.3, GFR 53 06/25/2024: NSTEMI: Aspirin, Plavix, Critical aortic stenosis Diastolic heart failure , acute on chronic: Lasix, changed to p.o., cut down on dose Critical pulmonary hypertension History of CAD Hypertensive emergency Hypokalemia : Replace Right lower extremity cellulitis : Ceftriaxone and vancomycin Sepsis : Continue IV antibiotic Hypomagnesemia : Replace as needed Lipitor new Dysphagia: Start Protonix IV, consult GI 06/26/2024: Abscess or hematoma of the right leg: Consult surgery Cellulitis of the right lower extremity: Continue IV antibiotics Critical aortic stenosis Critical pulmonary hypertension Dysphagia Hypokalemia Sepsis 06/27/2024: Right lower extremity cellulitis: Continue IV antibiotic Rocephin and vancomycin Hematoma of the right lower extremity: Surgery consulted, conservative treatment Dysphagia: Continue sucralfate Hypertension: Continue metoprolol and Diovan NSTEMI: Continue aspirin and Plavix Monitor closely Guarded prognosis 06/28/24: Continue IV antibiotics Cough: Med Nebs Pain control: [place] prn Physical therapy eval 06/29/2024: Continue IV antibiotics and if the hematoma in the right leg does not improve or becomes worse then we will have to call Orthopedic surgery per the recommendation of Dr. Kalia Delgado 06/30/2024: Continue the current management with the IV antibiotics Physical therapy evaluation Control the pain with [place] as needed If the hematoma does not get better then we will consider consulting orthopedic surgery or IR to drain it Plan discussed with: Patient, Spouse My Orders Orders - CHONG CANADA MD Procedure Category Date Status Time Vancomycin,Trough LAB 07/03/24 Verified 12:00 Vancomycin Per HEATH 06/29/24 In Process Pharmacy [facility] 17:35 Date of Service: June 30, 2024 Billing Provider: CHONG CANADA MD Common Visit Codes: NOT BILLABLE CHONG CANADA MD June 30, 2024 14:22
[2024-06-30] MEDS: ACETAMINOPHEN 325 MG TAB PO PRN (22:26)
[2024-07-01] VITALS (15 sets, daily range): BP systolic 129–175; BP diastolic 45–80; PULSE 65–86; RESP 16–18; TEMP 97.6–98.1; O2SAT 95–99
[2024-07-01 06:58] LABS: Basophils # (auto) 0.1 10 ^3/uL (0-0.2); Basophils % (auto) 1.1 % (0.0-2.0); Eosinophils # (auto) 0.3 10 ^3/uL (0-0.8); Hemoglobin 11.5 g/dL (13.5-17.5); Lymphocytes # (auto) 1.3 10 ^3/uL (0.4-5.4); Lymphocytes % (auto) 13.8 % (10.0-50.0); Mean Corpuscular Hemoglobin 28.9 pg (28.0-32.0); Mean Corpuscular Hgb Conc. 33.7 g/dL (32.0-36.0); Mean Corpuscular Volume 85.8 fL (80.0-100.0); Monocytes # (auto) 0.8 10 ^3/uL (0-1.3); Monocytes % (auto) 8.6 % (0.0-12.0); Neutrophils % (auto) 73.5 % (37.0-80.0); Platelet Count (auto) 226 10^3/uL (140-450); Red Blood Cells 3.97 10^6/uL (4.5-5.90); White Blood Cell 9.5 10^3/uL (4.4-10.8)
[2024-07-01] MEDS ORDERED: BIMA0.01 EACHEYE (14:29)
--- NOTE | 2024-07-01 14:33 | DVHPN2 ---
Subjective Pain in the right leg is better Less edema No change Changes from previous H/P or p: Changes Musculoskeletal: arm pain, leg pain Objective Vitals Vital Signs Date Time Temp Pulse Resp B/P (MAP) Pulse Ox O2 Delivery O2 Flow Rate FiO2 07/01/24 13:08 97.9 83 18 166/52 (90) 97 97.9 07/01/24 12:46 Room Air 0.0 07/01/24 12:46 21 Intake/Output Intake and Output 07/01/24 07:00 Intake Total 500 ml Output Total 500 ml Balance 0 ml Intake Oral 500 ml Output Urine Total 500 ml # Bowel Movements 1 General Appearance: Alert, Oriented X3, Cooperative Extremities: Other (Right lower extremity with redness and swelling around the miguel area down to the ankleBilateral 2+ edema ) Medications Current Medications Medications Dose Ordered Sig/Armando Route Start Time Stop Time Status Last Admin Dose Admin Ondansetron HCl 4 mg Q4HP PRN IV 06/22/24 11:15 06/25/24 02:20 4 MG Enoxaparin Sodium 40 mg DAILY SC 06/23/24 10:00 07/01/24 10:21 40 MG Acetaminophen 650 mg Q6HP PRN PO 06/22/24 11:15 06/30/24 22:26 650 MG Allopurinol 100 mg DAILY PO 06/23/24 10:00 07/01/24 10:21 100 MG Metoprolol Tartrate 50 mg BID PO 06/22/24 22:00 07/01/24 10:16 50 MG Atorvastatin Calcium 40 mg HS PO 06/22/24 22:00 06/30/24 22:25 40 MG Valsartan 320 mg DAILY PO 06/22/24 11:48 07/01/24 10:17 320 MG Ceftriaxone Sodium 50 ml @ 100 mls/hr DAILY@09 IV 06/23/24 09:00 07/01/24 09:00 100 MLS/HR Hydralazine HCl 10 mg Q6HPRN PRN IV 06/22/24 16:15 07/01/24 12:34 10 MG Patient Own Medication 1 HS EACHEYE 06/23/24 22:00 06/30/24 22:00 1 Vancomycin HCl 0 ml @ 0 mls/hr UD IV 06/23/24 12:15 Acetaminophen/ Hydrocodone Bitart 1 tab Q6HP PRN PO 06/23/24 12:15 07/01/24 06:42 1 TAB Vancomycin HCl 200 ml @ 200 mls/hr DAILY@1300 IV 06/24/24 13:00 07/01/24 12:35 200 MLS/HR Enteral Nutritional Formula 240 ml TIDWM PO 06/24/24 18:00 07/01/24 12:00 240 ML Aspirin 81 mg DAILY PO 06/25/24 10:00 07/01/24 10:17 81 MG Clopidogrel Bisulfate 75 mg DAILY PO 06/25/24 10:00 07/01/24 10:20 75 MG Pantoprazole Sodium 40 mg DAILY IV 06/26/24 10:00 07/01/24 10:20 40 MG Sucralfate 1 gm TID@0600,1130,2200 PO 06/26/24 06:00 07/01/24 11:30 1 GM Albuterol 2.5 mg Q6HWA NEB 06/28/24 18:00 07/01/24 12:46 2.5 MG Laboratory Results Laboratory Tests 06/27/24 06:35 07/01/24 06:06 Microbiology Microbiology Date/Time Source Procedure Growth Status 06/22/24 14:30 Leg Right Gram Stain - Final Complete 06/22/24 14:30 Wound Culture - Final Enterococcus faecalis Complete 06/22/24 09:50 Blood Blood Culture - Final NO GROWTH AFTER 5 DAYS OF INCUBATION. Complete Assessment/Plan Assessment/Plan Right lower extremity cellulitis Bilateral lower extremity edema rule out heart failure Hypertension History of coronary artery disease Rule out heart failure Hard of hearing Hypokalemia Acute on chronic diastolic heart failure Severe pulmonary hypertension Severe critical aortic stenosis Plan IV antibiotics Rocephin and vancomycin Start IV Lasix Get an echocardiogram Monitor the high blood pressure Metoprolol and valsartan Discussed with the POA at the bedside Full code 06/24/2024: Add ensure Continue IV antibiotics Diastolic heart failure: Continue Lasix Echocardiogram showed moderate diastolic dysfunction with an ejection fraction of 65% and heavily calcified aortic valve with a critical aortic stenosis, also critical pulmonary hypertension RV SP is 81 Hypomagnesemia: Replace Hypokalemia: Replace Chronic kidney disease: Creatinine 1.3, GFR 53 06/25/2024: NSTEMI: Aspirin, Plavix, Critical aortic stenosis Diastolic heart failure , acute on chronic: Lasix, changed to p.o., cut down on dose Critical pulmonary hypertension History of CAD Hypertensive emergency Hypokalemia : Replace Right lower extremity cellulitis : Ceftriaxone and vancomycin Sepsis : Continue IV antibiotic Hypomagnesemia : Replace as needed Lipitor new Dysphagia: Start Protonix IV, consult GI 06/26/2024: Abscess or hematoma of the right leg: Consult surgery Cellulitis of the right lower extremity: Continue IV antibiotics Critical aortic stenosis Critical pulmonary hypertension Dysphagia Hypokalemia Sepsis 06/27/2024: Right lower extremity cellulitis: Continue IV antibiotic Rocephin and vancomycin Hematoma of the right lower extremity: Surgery consulted, conservative treatment Dysphagia: Continue sucralfate Hypertension: Continue metoprolol and Diovan NSTEMI: Continue aspirin and Plavix Monitor closely Guarded prognosis 06/28/24: Continue IV antibiotics Cough: Med Nebs Pain control: [place] prn Physical therapy eval 06/29/2024: Continue IV antibiotics and if the hematoma in the right leg does not improve or becomes worse then we will have to call Orthopedic surgery per the recommendation of Dr. Kalia Delgado 06/30/2024: Continue the current management with the IV antibiotics Physical therapy evaluation Control the pain with [place] as needed If the hematoma does not get better then we will consider consulting orthopedic surgery or IR to drain it 07/01/2024: His right leg appears to be better, it is not tender to touch anymore He is complaining that he ran out or lost his eyedrops so he needs a refill Otherwise continue to give antibiotics and get physical therapy He is generally weak He will need rehab at a SNF for physical therapy and he can be discharged on p.o. antibiotics Plan discussed with: Patient Date of Service: July 01, 2024 Billing Provider: CHONG CANADA MD Common Visit Codes: NOT BILLABLE CHONG CANADA MD July 01, 2024 14:33
--- NOTE | 2024-07-01 14:57 | DVHPN2 ---
Progress Note - Dictate Date Seen: July 01, 2024 Has the PT tested + for MRSA If YES, has PT been informed?: No Medical Necessity Reason Pt with a Central, PICC or Fol: No Subjective No new complaints Patient tolerating diet Less pain in the right leg vital signs Vital Sign Date Time Temp Pulse Resp B/P (MAP) Pulse Ox O2 Delivery O2 Flow Rate FiO2 07/01/24 13:08 97.9 83 18 166/52 (90) 97 97.9 07/01/24 12:46 Room Air 0.0 07/01/24 12:46 21 Total Intake and Output 06/30/24 06/30/24 07/01/24 15:00 23:00 07:00 Intake Total 200 ml 300 ml Output Total 400 ml 100 ml Balance -200 ml 200 ml medications Current Medications Medications Dose Ordered Sig/Armando Route Start Time Stop Time Status Last Admin Dose Admin Ondansetron HCl 4 mg Q4HP PRN IV 06/22/24 11:15 06/25/24 02:20 4 MG Enoxaparin Sodium 40 mg DAILY SC 06/23/24 10:00 07/01/24 10:21 40 MG Acetaminophen 650 mg Q6HP PRN PO 06/22/24 11:15 06/30/24 22:26 650 MG Allopurinol 100 mg DAILY PO 06/23/24 10:00 07/01/24 10:21 100 MG Metoprolol Tartrate 50 mg BID PO 06/22/24 22:00 07/01/24 10:16 50 MG Atorvastatin Calcium 40 mg HS PO 06/22/24 22:00 06/30/24 22:25 40 MG Valsartan 320 mg DAILY PO 06/22/24 11:48 07/01/24 10:17 320 MG Ceftriaxone Sodium 50 ml @ 100 mls/hr DAILY@09 IV 06/23/24 09:00 07/01/24 09:00 100 MLS/HR Hydralazine HCl 10 mg Q6HPRN PRN IV 06/22/24 16:15 07/01/24 12:34 10 MG Patient Own Medication 1 HS EACHEYE 06/23/24 22:00 06/30/24 22:00 1 Vancomycin HCl 0 ml @ 0 mls/hr UD IV 06/23/24 12:15 Acetaminophen/ Hydrocodone Bitart 1 tab Q6HP PRN PO 06/23/24 12:15 07/01/24 14:34 1 TAB Vancomycin HCl 200 ml @ 200 mls/hr DAILY@1300 IV 06/24/24 13:00 07/01/24 12:35 200 MLS/HR Enteral Nutritional Formula 240 ml TIDWM PO 06/24/24 18:00 07/01/24 12:00 240 ML Aspirin 81 mg DAILY PO 06/25/24 10:00 07/01/24 10:17 81 MG Clopidogrel Bisulfate 75 mg DAILY PO 06/25/24 10:00 07/01/24 10:20 75 MG Pantoprazole Sodium 40 mg DAILY IV 06/26/24 10:00 07/01/24 10:20 40 MG Sucralfate 1 gm TID@0600,1130,2200 PO 06/26/24 06:00 07/01/24 11:30 1 GM Albuterol 2.5 mg Q6HWA NEB 06/28/24 18:00 07/01/24 12:46 2.5 MG objective General Appearance: Alert, Oriented X3, Cooperative, No acute distress HEENT: Atraumatic, PERRLA, EOMI, Mucous membrane moist/pink Respiratory: Clear to auscultation, Normal air movement Cardiovascular: Regular rate, Normal S1, Normal S2, No murmurs, no chest wall tenderness Abdominal: Normal bowel sounds, Soft, No tenderness, No hepatospenomegaly, No masses Extremities: No clubbing, No cyanosis, No edema, Normal pulses, Right leg swelling and edema function to ankle Skin: No rashes, No breakdown, No significant lesion Neuro: Normal gait, Normal speech, Strength at 5/5 X4 ext, Normal tone, Sensation intact, Cranial nerves 3-12 NL, Reflexes 2+ Psych/Mental Status: Mental status NL, Mood NL laboratory and microbiology Laboratory Tests 07/01/24 06:06 06/27/24 06:35 Test 06/27/24 06:35 Range/Units Serum Glucose 111 H 74-106 mg/dL Problems(with codes): (1) Hematoma of lower extremity (2) Skin infection (3) Dysphagia (4) Hypercalcemia (5) Hypertensive emergency (6) Cellulitis Prognosis Plan Patient is resting comfortably Advance diet as tolerated Continue supportive care Patient is currently on PPI Carafate and nystatin Discharge planning is in progress possibly to SNF Dietary Evaluation Review Recommendations by RD: Increase Calorie Intake Comments: 1) Initiate Ensure Enlive bid. Encourage optimal PO intake 2) Consider removing cardiac restriction from diet d/t decreased appetite and advanced age 3) Initiate vitamin C @ 500 mg bid and zinc sulfate @ 220 mg qd for 7-10 days 4) Follow-up with cardiology and nephrology 5) Continue to monitor I&O, labs, and skin integrity Expected Outcomes/Goals: 1) appetite and labs to improve 2) wound to improve 3) follow-up in 3-5 days Plan discussed with: Patient LINO FITZGERALD MD July 01, 2024 14:57
[2024-07-02] VITALS (14 sets, daily range): BP systolic 129–186; BP diastolic 46–73; PULSE 62–85; RESP 14–21; TEMP 97.8–98.7; O2SAT 94–100
--- NOTE | 2024-07-02 12:08 | DVHPN2 ---
Subjective Pain in the right leg is better Less edema No change BP is high c/o neuropathy pain Changes from previous H/P or p: Changes Musculoskeletal: arm pain, leg pain Objective Vitals Vital Signs Date Time Temp Pulse Resp B/P (MAP) Pulse Ox O2 Delivery O2 Flow Rate FiO2 07/02/24 11:41 65 18 100 07/02/24 11:33 Room Air* 0 21 07/02/24 09:34 186/68 07/02/24 08:24 98.2 98.2 Intake/Output Intake and Output 07/02/24 07:00 Intake Total 1725 ml Output Total 826 ml Balance 899 ml Intake Oral 1475 ml IV Total 250 ml Output Urine Total 825 ml Stool Total 1 ml # Voids 7 General Appearance: Alert, Oriented X3, Cooperative Extremities: Other (Right lower extremity with redness and swelling around the miguel area down to the ankleBilateral 2+ edema ) Medications Current Medications Medications Dose Ordered Sig/Armando Route Start Time Stop Time Status Last Admin Dose Admin Ondansetron HCl 4 mg Q4HP PRN IV 06/22/24 11:15 06/25/24 02:20 4 MG Enoxaparin Sodium 40 mg DAILY SC 06/23/24 10:00 07/01/24 10:21 40 MG Acetaminophen 650 mg Q6HP PRN PO 06/22/24 11:15 07/02/24 09:31 650 MG Allopurinol 100 mg DAILY PO 06/23/24 10:00 07/02/24 09:34 100 MG Metoprolol Tartrate 50 mg BID PO 06/22/24 22:00 07/02/24 09:34 50 MG Atorvastatin Calcium 40 mg HS PO 06/22/24 22:00 07/01/24 22:07 40 MG Valsartan 320 mg DAILY PO 06/22/24 11:48 07/02/24 09:33 320 MG Ceftriaxone Sodium 50 ml @ 100 mls/hr DAILY@09 IV 06/23/24 09:00 07/01/24 09:00 100 MLS/HR Hydralazine HCl 10 mg Q6HPRN PRN IV 06/22/24 16:15 07/02/24 05:38 10 MG Patient Own Medication 1 HS EACHEYE 06/23/24 22:00 07/01/24 22:06 1 Vancomycin HCl 0 ml @ 0 mls/hr UD IV 06/23/24 12:15 Acetaminophen/ Hydrocodone Bitart 1 tab Q6HP PRN PO 06/23/24 12:15 07/02/24 05:38 1 TAB Vancomycin HCl 200 ml @ 200 mls/hr DAILY@1300 IV 06/24/24 13:00 07/01/24 12:35 200 MLS/HR Enteral Nutritional Formula 240 ml TIDWM PO 06/24/24 18:00 07/02/24 08:00 240 ML Aspirin 81 mg DAILY PO 06/25/24 10:00 07/02/24 09:33 81 MG Clopidogrel Bisulfate 75 mg DAILY PO 06/25/24 10:00 07/02/24 09:31 75 MG Pantoprazole Sodium 40 mg DAILY IV 06/26/24 10:00 07/02/24 09:33 40 MG Sucralfate 1 gm TID@0600,1130,2200 PO 06/26/24 06:00 07/02/24 05:38 1 GM Albuterol 2.5 mg Q6HWA NEB 06/28/24 18:00 07/02/24 11:33 2.5 MG Laboratory Results Laboratory Tests 06/27/24 06:35 07/01/24 06:06 07/02/24 06:18 Microbiology Microbiology Date/Time Source Procedure Growth Status 06/22/24 14:30 Leg Right Gram Stain - Final Complete 06/22/24 14:30 Wound Culture - Final Enterococcus faecalis Complete 06/22/24 09:50 Blood Blood Culture - Final NO GROWTH AFTER 5 DAYS OF INCUBATION. Complete Assessment/Plan Assessment/Plan Right lower extremity cellulitis Bilateral lower extremity edema rule out heart failure Hypertension History of coronary artery disease Rule out heart failure Hard of hearing Hypokalemia Acute on chronic diastolic heart failure Severe pulmonary hypertension Severe critical aortic stenosis Plan IV antibiotics Rocephin and vancomycin Start IV Lasix Get an echocardiogram Monitor the high blood pressure Metoprolol and valsartan Discussed with the POA at the bedside Full code 06/24/2024: Add ensure Continue IV antibiotics Diastolic heart failure: Continue Lasix Echocardiogram showed moderate diastolic dysfunction with an ejection fraction of 65% and heavily calcified aortic valve with a critical aortic stenosis, also critical pulmonary hypertension RV SP is 81 Hypomagnesemia: Replace Hypokalemia: Replace Chronic kidney disease: Creatinine 1.3, GFR 53 06/25/2024: NSTEMI: Aspirin, Plavix, Critical aortic stenosis Diastolic heart failure , acute on chronic: Lasix, changed to p.o., cut down on dose Critical pulmonary hypertension History of CAD Hypertensive emergency Hypokalemia : Replace Right lower extremity cellulitis : Ceftriaxone and vancomycin Sepsis : Continue IV antibiotic Hypomagnesemia : Replace as needed Lipitor new Dysphagia: Start Protonix IV, consult GI 06/26/2024: Abscess or hematoma of the right leg: Consult surgery Cellulitis of the right lower extremity: Continue IV antibiotics Critical aortic stenosis Critical pulmonary hypertension Dysphagia Hypokalemia Sepsis 06/27/2024: Right lower extremity cellulitis: Continue IV antibiotic Rocephin and vancomycin Hematoma of the right lower extremity: Surgery consulted, conservative treatment Dysphagia: Continue sucralfate Hypertension: Continue metoprolol and Diovan NSTEMI: Continue aspirin and Plavix Monitor closely Guarded prognosis 06/28/24: Continue IV antibiotics Cough: Med Nebs Pain control: [place] prn Physical therapy eval 06/29/2024: Continue IV antibiotics and if the hematoma in the right leg does not improve or becomes worse then we will have to call Orthopedic surgery per the recommendation of Dr. Kalia Delgado 06/30/2024: Continue the current management with the IV antibiotics Physical therapy evaluation Control the pain with [place] as needed If the hematoma does not get better then we will consider consulting orthopedic surgery or IR to drain it 07/01/2024: His right leg appears to be better, it is not tender to touch anymore He is complaining that he ran out or lost his eyedrops so he needs a refill Otherwise continue to give antibiotics and get physical therapy He is generally weak He will need rehab at a SNF for physical therapy and he can be discharged on p.o. antibiotics 07/02/2024: Neuropathy pain: Start Neurontin 100 mg t.i.d. Right leg abscess versus hematoma: Consult Orthopedic surgery, do MRI of the right tib-fib Continue IV antibiotics Four general weakness: Arrange SNF Hypertension, uncontrolled: Continue metoprolol and valsartan, add amlodipine Plan discussed with: Patient My Orders Orders - CHONG CANADA MD Procedure Category Date Status Time * Photo Tube Assembler CONS 07/01/24 Transmitted Consult Mri R Tib Fib Wo MRI 07/02/24 Logged Contrast R 11:15 * Orthopedic Consult CONS 07/02/24 Transmitted 11:15 Amlodipine Tablet PHA 07/02/24 Logged (Norvasc Tablet) 12:15 Amlodipine Tablet PHA 07/03/24 Logged (Norvasc Tablet) 10:00 Gabapentin Capsule PHA 07/02/24 Logged (Neurontin Capsule) 14:00 Date of Service: July 02, 2024 Billing Provider: CHONG CANADA MD Common Visit Codes: NOT BILLABLE CHONG CANADA MD July 02, 2024 12:08
[2024-07-02] MEDS: GABAPENTIN 100 MG CAP PO SCH (14:24)
[2024-07-02] MEDS: amLODIPine BESYLATE 5 MG TAB PO ONE (14:25)
--- NOTE | 2024-07-02 14:54 | DVH ---
EXAM: MRI MRI R TIB FIB WO CONTRAST R HISTORY: swelling COMPARISON: CT CT R TIB FIB WO CONTRAST on DOS: 06/26/24 TECHNIQUE: Multiplanar, multisequence MRI was performed. FINDINGS: The visualized osseous structures demonstrate normal cortical and bone marrow signal intensity withou t evidence of fracture, trabecular bony injury, or dislocation. Subcutaneous hematoma in the anterior upper to mid leg measuring 9.1 cm in craniocaudal, 5.5 cm in tr ansverse 2 cm in thickness, slightly larger compared to the previous CT scan. Overlying subcutaneous edema noted. Edema noted in the anterior and deep posterior compartments muscles. IMPRESSION: 1. Grossly stable subcutaneous hematoma in the anterior upper to mid leg. 2. Anterior and deep posterior compartments muscle edema that may represent strain or myositis. 3. No acute osseous abnormality.
[2024-07-03] VITALS (14 sets, daily range): BP systolic 127–158; BP diastolic 45–68; PULSE 56–75; RESP 16–20; TEMP 97.6–98.6; O2SAT 93–99
[2024-07-03 06:33] LABS: Basophils # (auto) 0.1 10 ^3/uL (0-0.2); Eosinophils # (auto) 0.3 10 ^3/uL (0-0.8); Eosinophils % (auto) 3.4 % (0.0-7.0); Hematocrit 36.8 % (41.0-53.0); Lymphocytes # (auto) 1.2 10 ^3/uL (0.4-5.4); Lymphocytes % (auto) 14.3 % (10.0-50.0); Mean Corpuscular Hemoglobin 28.7 pg (28.0-32.0); Mean Corpuscular Hgb Conc. 32.7 g/dL (32.0-36.0); Mean Corpuscular Volume 87.7 fL (80.0-100.0); Monocytes # (auto) 0.8 10 ^3/uL (0-1.3); Monocytes % (auto) 9.3 % (0.0-12.0); Neutrophils # (auto) 6.2 10 ^3/uL (1.6-8.6); Platelet Count (auto) 239 10^3/uL (140-450); Red Blood Cells 4.19 10^6/uL (4.5-5.90); Red Cell Distribution Width 15.3 % (11.8-14.3); White Blood Cell 8.6 10^3/uL (4.4-10.8)
[2024-07-03 06:36] LABS: Anion Gap 9 (5-15); Carbon Dioxide 24 mmol/L (20-31); Potassium 4.1 mmol/L (3.5-5.1); Sodium 140 mmol/L (136-145)
[2024-07-03 06:42] LABS: BUN/Creatinine Ratio 17.8 (10.0-20.0)
[2024-07-03 06:49] LABS: Blood Urea Nitrogen 23 mg/dL (9-23); Chloride 107 mmol/L (98-107); Glucose 112 mg/dL (74-106)
[2024-07-03] MEDS: amLODIPine BESYLATE 5 MG TAB PO SCH (09:52)
--- NOTE | 2024-07-03 19:19 | DVHINCON2 ---
Consult Note Consult Consult Note Location: Inpatient Referring Provider: Hospitalist --- Reason for Consultation: Evaluation and management of a painful, subcutaneous hematoma over the anterior right lower leg following blunt trauma, with concern for liquefaction and need for surgical intervention. --- History of Present Illness: Mr. Lewis is an inpatient who has been hospitalized for the past two weeks following blunt trauma to the anterior right lower leg. During his hospital stay, he has been managed with IV antibiotics by the hospitalist team for presumed soft tissue injury. He reports persistent swelling and pain in the area, which has not increased in size but also has not improved. The area has become more fluctuant and painful, raising concern for liquefaction of the hematoma. There are no signs of spreading erythema, warmth, or drainage. The patient denies fever, chills, numbness, tingling, or weakness. Relevant past medical history includes myocardial infarction in 2011, status post stent placement. Patient denies history of diabetes, smoking, COPD, or any prior complications from surgical treatment. --- Physical Examination: General: Alert and oriented, no acute distress Right Lower Leg: Healing scab present over anterior aspect of the lower one-third of leg 2cm x 1cm approx Subcutaneous hematoma palpable, fluctuant, tender to touch approx size 9cm x 5 cm Minimal overlying erythema , no warmth No induration or signs of active infection Calf Compartments soft and compressible Neurovascular: Distal pulses palpable, capillary refill <2 seconds ROM: Knee: Full and intact Ankle: Full and intact Neurologic: Sensation intact, no weakness or paresthesias --- Imaging/Labs: MRI of the Leg: Subcutaneous hematoma noted over the anterior aspect of the lower one-third of the right leg, measuring approximately 9 cm 5 cm. Also noted is possible underlying anterior and posterior compartment muscle strain DVT Workup: Negative US Vitals: Stable --- Assessment: 1. Subcutaneous hematoma, anterior lower one-third of right leg (9cm 5cm) persistent, fluctuant, likely liquefied 2. Possible muscle strain of anterior and posterior compartments 3. No current signs of cellulitis or secondary infection 4. Status post blunt trauma, hospitalized x2 weeks with IV antibiotics 5. History of PA with stent in 2011; no other significant comorbidities --- Plan: Proceed with incision and drainage of subcutaneous hematoma Patient to remain NPO after midnight Consent obtained; patient and family counseled on risks, benefits, and alternatives. Since fluid collection not improving on its own but painful to touch he would like to proceed with surgery Dr. Manzano will perform the procedure Follow post-op w/ Ortho for wound healing , dressing change after discharge Plan discussed with: Patient, Spouse, Other (bedside nurse) Visit Coding Surgery Date of Service if different f: July 03, 2024 Billing Provider: LILA BESS Surgery Visit Codes: [id number] - INP CONSULT <55 MIN LILA BESS July 03, 2024 19:19 ROB MANZANO MD July 04, 2024 13:03
--- NOTE | 2024-07-03 21:19 | DVHPN2 ---
Subjective No new complaints Changes from previous H/P or p: Changes Musculoskeletal: arm pain, leg pain Objective Vitals Vital Signs Date Time Temp Pulse Resp B/P (MAP) Pulse Ox O2 Delivery O2 Flow Rate FiO2 07/03/24 19:29 61 18 99 07/03/24 19:23 Room Air 0.0 07/03/24 19:23 21 07/03/24 16:52 97.6 137/46 (76) 97.6 Intake/Output Intake and Output 07/03/24 07:00 Intake Total 1250 ml Output Total 1153 ml Balance 97 ml Intake Oral 1050 ml IV Total 200 ml Output Urine Total 1150 ml Stool Total 3 ml General Appearance: Alert, Oriented X3, Cooperative Extremities: Other (Right lower extremity with redness and swelling around the miguel area down to the ankleBilateral 2+ edema ) Medications Current Medications Medications Dose Ordered Sig/Armando Route Start Time Stop Time Status Last Admin Dose Admin Ondansetron HCl 4 mg Q4HP PRN IV 06/22/24 11:15 06/25/24 02:20 4 MG Enoxaparin Sodium 40 mg DAILY SC 06/23/24 10:00 07/01/24 10:21 40 MG Acetaminophen 650 mg Q6HP PRN PO 06/22/24 11:15 07/02/24 09:31 650 MG Allopurinol 100 mg DAILY PO 06/23/24 10:00 07/03/24 09:55 100 MG Metoprolol Tartrate 50 mg BID PO 06/22/24 22:00 07/03/24 09:53 50 MG Atorvastatin Calcium 40 mg HS PO 06/22/24 22:00 07/02/24 21:48 40 MG Valsartan 320 mg DAILY PO 06/22/24 11:48 07/03/24 09:55 320 MG Ceftriaxone Sodium 50 ml @ 100 mls/hr DAILY@09 IV 06/23/24 09:00 07/01/24 09:00 100 MLS/HR Hydralazine HCl 10 mg Q6HPRN PRN IV 06/22/24 16:15 07/02/24 14:24 10 MG Patient Own Medication 1 HS EACHEYE 06/23/24 22:00 07/02/24 21:48 1 Vancomycin HCl 0 ml @ 0 mls/hr UD IV 06/23/24 12:15 Acetaminophen/ Hydrocodone Bitart 1 tab Q6HP PRN PO 06/23/24 12:15 07/03/24 12:52 1 TAB Vancomycin HCl 200 ml @ 200 mls/hr DAILY@1300 IV 06/24/24 13:00 07/03/24 12:52 200 MLS/HR Enteral Nutritional Formula 240 ml TIDWM PO 06/24/24 18:00 07/03/24 18:00 240 ML Aspirin 81 mg DAILY PO 06/25/24 10:00 07/03/24 09:55 81 MG Clopidogrel Bisulfate 75 mg DAILY PO 06/25/24 10:00 07/03/24 09:51 75 MG Pantoprazole Sodium 40 mg DAILY IV 06/26/24 10:00 07/03/24 09:51 40 MG Sucralfate 1 gm TID@0600,1130,2200 PO 06/26/24 06:00 07/02/24 05:38 1 GM Albuterol 2.5 mg Q6HWA NEB 06/28/24 18:00 07/03/24 19:23 2.5 MG Amlodipine Besylate 5 mg DAILY PO 07/03/24 10:00 07/03/24 09:52 5 MG Gabapentin 100 mg TID PO 07/02/24 14:00 07/03/24 14:15 100 MG Laboratory Results Laboratory Tests 07/03/24 04:35 Chemistry Test 07/03/24 04:35 Calcium Level 10.0 mg/dL (8.7-10.4) Microbiology Microbiology Date/Time Source Procedure Growth Status 06/22/24 14:30 Leg Right Gram Stain - Final Complete 06/22/24 14:30 Wound Culture - Final Enterococcus faecalis Complete 06/22/24 09:50 Blood Blood Culture - Final NO GROWTH AFTER 5 DAYS OF INCUBATION. Complete Assessment/Plan Assessment/Plan Right lower extremity cellulitis Bilateral lower extremity edema rule out heart failure Hypertension History of coronary artery disease Rule out heart failure Hard of hearing Hypokalemia Acute on chronic diastolic heart failure Severe pulmonary hypertension Severe critical aortic stenosis Plan IV antibiotics Rocephin and vancomycin Start IV Lasix Get an echocardiogram Monitor the high blood pressure Metoprolol and valsartan Discussed with the POA at the bedside Full code 06/24/2024: Add ensure Continue IV antibiotics Diastolic heart failure: Continue Lasix Echocardiogram showed moderate diastolic dysfunction with an ejection fraction of 65% and heavily calcified aortic valve with a critical aortic stenosis, also critical pulmonary hypertension RV SP is 81 Hypomagnesemia: Replace Hypokalemia: Replace Chronic kidney disease: Creatinine 1.3, GFR 53 06/25/2024: NSTEMI: Aspirin, Plavix, Critical aortic stenosis Diastolic heart failure , acute on chronic: Lasix, changed to p.o., cut down on dose Critical pulmonary hypertension History of CAD Hypertensive emergency Hypokalemia : Replace Right lower extremity cellulitis : Ceftriaxone and vancomycin Sepsis : Continue IV antibiotic Hypomagnesemia : Replace as needed Lipitor new Dysphagia: Start Protonix IV, consult GI 06/26/2024: Abscess or hematoma of the right leg: Consult surgery Cellulitis of the right lower extremity: Continue IV antibiotics Critical aortic stenosis Critical pulmonary hypertension Dysphagia Hypokalemia Sepsis 06/27/2024: Right lower extremity cellulitis: Continue IV antibiotic Rocephin and vancomycin Hematoma of the right lower extremity: Surgery consulted, conservative treatment Dysphagia: Continue sucralfate Hypertension: Continue metoprolol and Diovan NSTEMI: Continue aspirin and Plavix Monitor closely Guarded prognosis 06/28/24: Continue IV antibiotics Cough: Med Nebs Pain control: [place] prn Physical therapy eval 06/29/2024: Continue IV antibiotics and if the hematoma in the right leg does not improve or becomes worse then we will have to call Orthopedic surgery per the recommendation of Dr. Kalia Delgado 06/30/2024: Continue the current management with the IV antibiotics Physical therapy evaluation Control the pain with [place] as needed If the hematoma does not get better then we will consider consulting orthopedic surgery or IR to drain it 07/01/2024: His right leg appears to be better, it is not tender to touch anymore He is complaining that he ran out or lost his eyedrops so he needs a refill Otherwise continue to give antibiotics and get physical therapy He is generally weak He will need rehab at a SNF for physical therapy and he can be discharged on p.o. antibiotics 07/02/2024: Neuropathy pain: Start Neurontin 100 mg t.i.d. Right leg abscess versus hematoma: Consult Orthopedic surgery, do MRI of the right tib-fib Continue IV antibiotics Four general weakness: Arrange SNF Hypertension, uncontrolled: Continue metoprolol and valsartan, add amlodipine 5/21/25: Scheduled for I&D tomorrow Continue IV antibiotics Plan discussed with: Patient, Spouse Date of Service: July 03, 2024 Billing Provider: CHONG CANADA MD Common Visit Codes: NOT BILLABLE CHONG CANADA MD July 03, 2024 21:19
--- NOTE | 2024-07-03 23:43 | DVHPN2 ---
Progress Note - Dictate Date Seen: July 03, 2024 Has the PT tested + for MRSA If YES, has PT been informed?: No Medical Necessity Reason Pt with a Central, PICC or Fol: No Subjective No new complaints Patient tolerating diet Less pain in the right leg Repeat CT of the leg shows a stable subcutaneous hematoma vital signs Vital Sign Date Time Temp Pulse Resp B/P (MAP) Pulse Ox O2 Delivery O2 Flow Rate FiO2 07/03/24 22:15 75 146/46 07/03/24 21:00 97.7 18 95 97.7 07/03/24 19:23 Room Air 0.0 07/03/24 19:23 21 Total Intake and Output 07/02/24 07/02/24 07/03/24 15:00 23:00 07:00 Intake Total 200 ml 600 ml 450 ml Output Total 782 ml 371 ml Balance 200 ml -182 ml 79 ml medications Current Medications Medications Dose Ordered Sig/Armando Route Start Time Stop Time Status Last Admin Dose Admin Ondansetron HCl 4 mg Q4HP PRN IV 06/22/24 11:15 06/25/24 02:20 4 MG Enoxaparin Sodium 40 mg DAILY SC 06/23/24 10:00 07/01/24 10:21 40 MG Acetaminophen 650 mg Q6HP PRN PO 06/22/24 11:15 07/02/24 09:31 650 MG Allopurinol 100 mg DAILY PO 06/23/24 10:00 07/03/24 09:55 100 MG Metoprolol Tartrate 50 mg BID PO 06/22/24 22:00 07/03/24 22:15 50 MG Atorvastatin Calcium 40 mg HS PO 06/22/24 22:00 07/03/24 22:15 40 MG Valsartan 320 mg DAILY PO 06/22/24 11:48 07/03/24 09:55 320 MG Ceftriaxone Sodium 50 ml @ 100 mls/hr DAILY@09 IV 06/23/24 09:00 07/01/24 09:00 100 MLS/HR Hydralazine HCl 10 mg Q6HPRN PRN IV 06/22/24 16:15 07/02/24 14:24 10 MG Patient Own Medication 1 HS EACHEYE 06/23/24 22:00 07/03/24 22:18 1 Vancomycin HCl 0 ml @ 0 mls/hr UD IV 06/23/24 12:15 Acetaminophen/ Hydrocodone Bitart 1 tab Q6HP PRN PO 06/23/24 12:15 07/03/24 22:16 1 TAB Vancomycin HCl 200 ml @ 200 mls/hr DAILY@1300 IV 06/24/24 13:00 07/03/24 12:52 200 MLS/HR Enteral Nutritional Formula 240 ml TIDWM PO 06/24/24 18:00 07/03/24 18:00 240 ML Aspirin 81 mg DAILY PO 06/25/24 10:00 07/03/24 09:55 81 MG Clopidogrel Bisulfate 75 mg DAILY PO 06/25/24 10:00 07/03/24 09:51 75 MG Pantoprazole Sodium 40 mg DAILY IV 06/26/24 10:00 07/03/24 09:51 40 MG Sucralfate 1 gm TID@0600,1130,2200 PO 06/26/24 06:00 07/02/24 05:38 1 GM Albuterol 2.5 mg Q6HWA NEB 06/28/24 18:00 07/03/24 19:23 2.5 MG Amlodipine Besylate 5 mg DAILY PO 07/03/24 10:00 07/03/24 09:52 5 MG Gabapentin 100 mg TID PO 07/02/24 14:00 07/03/24 22:15 100 MG objective General Appearance: Alert, Oriented X3, Cooperative, No acute distress HEENT: Atraumatic, PERRLA, EOMI, Mucous membrane moist/pink Respiratory: Clear to auscultation, Normal air movement Cardiovascular: Regular rate, Normal S1, Normal S2, No murmurs, no chest wall tenderness Abdominal: Normal bowel sounds, Soft, No tenderness, No hepatospenomegaly, No masses Extremities: No clubbing, No cyanosis, No edema, Normal pulses, Right leg swelling and edema function to ankle Skin: No rashes, No breakdown, No significant lesion Neuro: Normal gait, Normal speech, Strength at 5/5 X4 ext, Normal tone, Sensation intact, Cranial nerves 3-12 NL, Reflexes 2+ Psych/Mental Status: Mental status NL, Mood NL laboratory and microbiology Laboratory Tests 07/03/24 04:35 Test 07/03/24 04:35 Range/Units Serum Glucose 112 H 74-106 mg/dL Problems(with codes): (1) Hematoma of lower extremity (2) Peripheral neuropathy (3) Dysphagia (4) Hypertensive emergency (5) Cellulitis Prognosis Plan Continue IV antibiotics Diet as tolerated Patient is NPO after midnight Possible I and D and drainage of hematoma tomorrow by Dr. Manzano Patient may possibly need SNF placement Dietary Evaluation Review Recommendations by RD: Increase Calorie Intake Comments: 1) Initiate Ensure Enlive bid. Encourage optimal PO intake 2) Consider removing cardiac restriction from diet d/t decreased appetite and advanced age 3) Initiate vitamin C @ 500 mg bid and zinc sulfate @ 220 mg qd for 7-10 days 4) Follow-up with cardiology and nephrology 5) Continue to monitor I&O, labs, and skin integrity Expected Outcomes/Goals: 1) appetite and labs to improve 2) wound to improve 3) follow-up in 3-5 days Plan discussed with: Patient LINO FITZGERALD MD July 03, 2024 23:43
[2024-07-04] VITALS (17 sets, daily range): BP systolic 124–173; BP diastolic 49–89; PULSE 55–78; RESP 16–20; TEMP 97.6–98.6; O2SAT 94–100
[2024-07-04 07:01] LABS: Potassium 4.4 mmol/L (3.5-5.1); Sodium 139 mmol/L (136-145)
[2024-07-04 07:02] LABS: Anion Gap 8 (5-15); Carbon Dioxide 24 mmol/L (20-31)
[2024-07-04 07:03] LABS: Calcium 10.3 mg/dL (8.7-10.4)
[2024-07-04 07:04] LABS: Chloride 107 mmol/L (98-107)
[2024-07-04 07:07] LABS: INR 1.08 (0.9-1.15); Partial Thromboplastin Time 30.2 SEC (24.5-34.5); Prothrombin Time 11.4 sec (9.3-11.8)
[2024-07-04 07:08] LABS: BUN/Creatinine Ratio 21.1 (10.0-20.0)
[2024-07-04 07:18] LABS: Basophils # (auto) 0.1 10 ^3/uL (0-0.2); Basophils % (auto) 1.2 % (0.0-2.0); Eosinophils # (auto) 0.3 10 ^3/uL (0-0.8); Eosinophils % (auto) 3.4 % (0.0-7.0); Hematocrit 37.3 % (41.0-53.0); Hemoglobin 12.4 g/dL (13.5-17.5); Lymphocytes # (auto) 1.4 10 ^3/uL (0.4-5.4); Lymphocytes % (auto) 14.3 % (10.0-50.0); Mean Corpuscular Hemoglobin 28.7 pg (28.0-32.0); Mean Corpuscular Hgb Conc. 33.2 g/dL (32.0-36.0); Mean Corpuscular Volume 86.4 fL (80.0-100.0); Monocytes # (auto) 0.8 10 ^3/uL (0-1.3); Monocytes % (auto) 8.6 % (0.0-12.0); Neutrophils # (auto) 6.9 10 ^3/uL (1.6-8.6); Neutrophils % (auto) 72.5 % (37.0-80.0); Platelet Count (auto) 263 10^3/uL (140-450); Red Blood Cells 4.31 10^6/uL (4.5-5.90); Red Cell Distribution Width 15.2 % (11.8-14.3); White Blood Cell 9.5 10^3/uL (4.4-10.8)
[2024-07-04 07:32] LABS: Blood Urea Nitrogen 26 mg/dL (9-23); Glucose 107 mg/dL (74-106)
[2024-07-04] MEDS: OMNIPAQUE 12mg/ml 500ml ORAL SOLUTION PO ONE (08:32)
--- NOTE | 2024-07-04 10:17 | DVHPN2 ---
Subjective No new complaints Scheduled for surgery today Changes from previous H/P or p: Changes Musculoskeletal: arm pain, leg pain Objective Vitals Vital Signs Date Time Temp Pulse Resp B/P (MAP) Pulse Ox O2 Delivery O2 Flow Rate FiO2 07/04/24 08:55 173/60 07/04/24 08:55 61 07/04/24 05:57 16 100 07/04/24 05:51 Room Air* 0 21 07/04/24 05:00 97.9 97.9 Intake/Output Intake and Output 07/04/24 07:00 Intake Total 1500 ml Output Total 1425 ml Balance 75 ml Intake Oral 1300 ml IV Total 200 ml Output Urine Total 1425 ml # Voids 2 General Appearance: Alert, Oriented X3, Cooperative Extremities: Other (Right lower extremity with redness and swelling around the miguel area down to the ankleBilateral 2+ edema ) Medications Current Medications Medications Dose Ordered Sig/Armando Route Start Time Stop Time Status Last Admin Dose Admin Ondansetron HCl 4 mg Q4HP PRN IV 06/22/24 11:15 06/25/24 02:20 4 MG Enoxaparin Sodium 40 mg DAILY SC 06/23/24 10:00 07/01/24 10:21 40 MG Acetaminophen 650 mg Q6HP PRN PO 06/22/24 11:15 07/02/24 09:31 650 MG Allopurinol 100 mg DAILY PO 06/23/24 10:00 07/04/24 08:54 100 MG Metoprolol Tartrate 50 mg BID PO 06/22/24 22:00 07/04/24 08:55 50 MG Atorvastatin Calcium 40 mg HS PO 06/22/24 22:00 07/03/24 22:15 40 MG Valsartan 320 mg DAILY PO 06/22/24 11:48 07/04/24 08:55 320 MG Ceftriaxone Sodium 50 ml @ 100 mls/hr DAILY@09 IV 06/23/24 09:00 07/04/24 08:53 100 MLS/HR Hydralazine HCl 10 mg Q6HPRN PRN IV 06/22/24 16:15 07/02/24 14:24 10 MG Patient Own Medication 1 HS EACHEYE 06/23/24 22:00 07/03/24 22:18 1 Vancomycin HCl 0 ml @ 0 mls/hr UD IV 06/23/24 12:15 Acetaminophen/ Hydrocodone Bitart 1 tab Q6HP PRN PO 06/23/24 12:15 07/04/24 05:07 1 TAB Vancomycin HCl 200 ml @ 200 mls/hr DAILY@1300 IV 06/24/24 13:00 07/03/24 12:52 200 MLS/HR Enteral Nutritional Formula 240 ml TIDWM PO 06/24/24 18:00 07/03/24 18:00 240 ML Aspirin 81 mg DAILY PO 06/25/24 10:00 07/04/24 08:54 81 MG Clopidogrel Bisulfate 75 mg DAILY PO 06/25/24 10:00 07/03/24 09:51 75 MG Pantoprazole Sodium 40 mg DAILY IV 06/26/24 10:00 07/04/24 08:53 40 MG Sucralfate 1 gm TID@0600,1130,2200 PO 06/26/24 06:00 07/02/24 05:38 1 GM Albuterol 2.5 mg Q6HWA NEB 06/28/24 18:00 07/04/24 05:51 2.5 MG Amlodipine Besylate 5 mg DAILY PO 07/03/24 10:00 07/04/24 08:54 5 MG Gabapentin 100 mg TID PO 07/02/24 14:00 07/04/24 05:06 100 MG Laboratory Results Laboratory Tests 07/04/24 06:05 Chemistry Test 07/04/24 06:05 Calcium Level 10.3 mg/dL (8.7-10.4) Coagulation Test 07/04/24 06:05 Prothrombin Time 11.4 sec (9.3-11.8) Prothrombin Time INR 1.08 (0.9-1.15) Activated Partial Thromboplast Time 30.2 SEC (24.5-34.5) Microbiology Microbiology Date/Time Source Procedure Growth Status 06/22/24 14:30 Leg Right Gram Stain - Final Complete 06/22/24 14:30 Wound Culture - Final Enterococcus faecalis Complete 06/22/24 09:50 Blood Blood Culture - Final NO GROWTH AFTER 5 DAYS OF INCUBATION. Complete Assessment/Plan Assessment/Plan Right lower extremity cellulitis Bilateral lower extremity edema rule out heart failure Hypertension History of coronary artery disease Rule out heart failure Hard of hearing Hypokalemia Acute on chronic diastolic heart failure Severe pulmonary hypertension Severe critical aortic stenosis Plan IV antibiotics Rocephin and vancomycin Start IV Lasix Get an echocardiogram Monitor the high blood pressure Metoprolol and valsartan Discussed with the POA at the bedside Full code 06/24/2024: Add ensure Continue IV antibiotics Diastolic heart failure: Continue Lasix Echocardiogram showed moderate diastolic dysfunction with an ejection fraction of 65% and heavily calcified aortic valve with a critical aortic stenosis, also critical pulmonary hypertension RV SP is 81 Hypomagnesemia: Replace Hypokalemia: Replace Chronic kidney disease: Creatinine 1.3, GFR 53 06/25/2024: NSTEMI: Aspirin, Plavix, Critical aortic stenosis Diastolic heart failure , acute on chronic: Lasix, changed to p.o., cut down on dose Critical pulmonary hypertension History of CAD Hypertensive emergency Hypokalemia : Replace Right lower extremity cellulitis : Ceftriaxone and vancomycin Sepsis : Continue IV antibiotic Hypomagnesemia : Replace as needed Lipitor new Dysphagia: Start Protonix IV, consult GI 06/26/2024: Abscess or hematoma of the right leg: Consult surgery Cellulitis of the right lower extremity: Continue IV antibiotics Critical aortic stenosis Critical pulmonary hypertension Dysphagia Hypokalemia Sepsis 06/27/2024: Right lower extremity cellulitis: Continue IV antibiotic Rocephin and vancomycin Hematoma of the right lower extremity: Surgery consulted, conservative treatment Dysphagia: Continue sucralfate Hypertension: Continue metoprolol and Diovan NSTEMI: Continue aspirin and Plavix Monitor closely Guarded prognosis 06/28/24: Continue IV antibiotics Cough: Med Nebs Pain control: [place] prn Physical therapy eval 06/29/2024: Continue IV antibiotics and if the hematoma in the right leg does not improve or becomes worse then we will have to call Orthopedic surgery per the recommendation of Dr. Kalia Delgado 06/30/2024: Continue the current management with the IV antibiotics Physical therapy evaluation Control the pain with [place] as needed If the hematoma does not get better then we will consider consulting orthopedic surgery or IR to drain it 07/01/2024: His right leg appears to be better, it is not tender to touch anymore He is complaining that he ran out or lost his eyedrops so he needs a refill Otherwise continue to give antibiotics and get physical therapy He is generally weak He will need rehab at a SNF for physical therapy and he can be discharged on p.o. antibiotics 07/02/2024: Neuropathy pain: Start Neurontin 100 mg t.i.d. Right leg abscess versus hematoma: Consult Orthopedic surgery, do MRI of the right tib-fib Continue IV antibiotics Four general weakness: Arrange SNF Hypertension, uncontrolled: Continue metoprolol and valsartan, add amlodipine 07/03/24: Scheduled for I&D tomorrow Continue IV antibiotics 07/04/2024: Scheduled for surgery today Continue the current management Discharge planning to SNF possibly tomorrow Plan discussed with: Patient My Orders Orders - CHONG CANADA MD Procedure Category Date Status Time Urinalysis LAB 07/04/24 Logged 04:09 Type And Screen BBK 07/04/24 In Process 04:09 Date of Service: July 04, 2024 Billing Provider: CHONG CANADA MD Common Visit Codes: NOT BILLABLE CHONG CANADA MD July 04, 2024 10:17
[2024-07-04] MEDS ORDERED: KETAMINE 50mg/ML 1ml syringe ONE (11:57)
[2024-07-04] MEDS ORDERED: ONDANSETRON HCL 4 MG/2 ML VIAL ONE (11:57)
[2024-07-04] MEDS ORDERED: DexAMETHasone SOD PHOS 10MG/1ML VIAL INJ ONE (11:57)
[2024-07-04] MEDS ORDERED: MIDAZOLAM HCL 2MG/2ML 2ml VIAL (1mg/ml) ONE (11:57)
[2024-07-04] MEDS ORDERED: fentaNYL CITRATE 100 MCG/2 ML VL ONE ×2 (11:57→13:11)
[2024-07-04] MEDS ORDERED: PROPOFOL 10 MG/ML 20 ML IV ONE (11:57)
[2024-07-04] MEDS ORDERED: LIDOCAINE 1% INJ PF 5ML AMP ONE (11:57)
[2024-07-04] MEDS: ceFAZolin 2 GM/D5W50ml 50 ML IV ONE (12:39)
--- NOTE | 2024-07-04 13:05 | DVHOP2 ---
Operative Report - 2 Report Details Date: 07/04/24 Preop Diagnosis: Right tibia hematoma/mass collection Postop Diagnosis: Right tibia hematoma/mass collection Surgeon: Ariel Manzano MD Anesthesiologist: Arelis VASQUEZ Anesthesia: Mac, Local Consent: The patient was informed of the risks and benefits of the procedure. These include but are not limited to complications of anesthesia, postoperative infection, incomplete relief of symptoms, recurrence of symptoms, damage to blood vessels, nerves and tendons, deep venous thrombosis, pulmonary embolism and possible need for repeat surgery in the future. Estimated Blood Loss: 5 cc Name of Procedure Performed Right tibia irrigation and debridement Procedure Details Procedure Details: I had a long discussion with the patient regarding the plan, the expected outcome, the risks, benefits, and alternatives of surgery. The risks include, but are not limited to, infection (which may require future surgery and removal of implants) , bleeding (which may require a transfusion), damage to nerves, arteries, veins, tendons, muscles and other adjacent structures. Also discussed the possibilities of intraoperative fractures, implant loosening, heterotopic bone formation, and revision for variety of reasons, and medical complications etc. This was discussed at length and consent has been obtained. DESCRIPTION OF PROCEDURE: In the preoperative holding area, the consent was reviewed and the appropriate extremity was verified by the patient and marked with my initials. The patient was then transferred to the operating theatre. Appropriate anesthesia was induced. All bony prominences were well padded. A time out was performed verifying the side and site of surgery according to standard protocol. Preoperative antibiotics were given. The extremity was then prepped and draped in the usual sterile fashion. We then made a mid-line incision over midshaft of tibia overlying the fluid collection. About 300 cc of hematoma was evacuated. No discrete purulence was noted. A dilute betadine solution (17.5mL in 500mL saline) was used to wash the joint and left to sit for 3 minutes. This was then irrigated out with copious amounts of pulse lavage. We sprinkled 1g vancomycin powder below the fascia and 1g above the fascia. We closed our capsular incision with a PDS style suture. We irrigated further. We closed the subcutaneous tissue with monocryl suture and re-approximated the skin with nylon. We verified all lower extremity compartments were soft and compressible and that we had intact distal pulses. We wrapped the extremity in sterile Webril and amparo bandage. The patient was transferred to the recovery room in stable condition. Specimen: Right tibia fluid culture Condition Fair Disposition Still a Patient ARIEL MANZANO MD July 04, 2024 13:05
[2024-07-04] MEDS: VANCOMYCIN HCL 1000 MG VL ONE (13:16)
[2024-07-04] MEDS: Lidocaine/Epinephrine 1%-1:100,000 30ML VL ONE (13:16)
[2024-07-04] MEDS: BUPIVACAINE 0.5% MPF INJ 30ML SDV IJ ONE (13:16)
[2024-07-04] MEDS: MORPHINE SULFATE INJ 2 MG/ml SYRG IV ONE (22:24)
[2024-07-04 22:28] LABS: Urine Bacteria FEW /hpf (None Seen); Urine Blood Negative /uL (Negative); Urine Clarity Clear (Clear); Urine Color Light-Yellow (Yellow); Urine Protein, UAD Negative (Negative); Urine Specific Gravity 1.015 (1.001-1.035); Urine Squamous Epithelial Cell None Seen /hpf (<5); Urine Urobilinogen Normal (Negative); Urine WBC 1 /HPF (0-3); Urine pH 6.5 (5.0-9.0)
[2024-07-05] VITALS (16 sets, daily range): BP systolic 118–145; BP diastolic 41–70; PULSE 53–77; RESP 16–20; TEMP 97.6–98.1; O2SAT 92–100
[2024-07-05 06:13] LABS: Basophils # (auto) 0.1 10 ^3/uL (0-0.2); Basophils % (auto) 1.1 % (0.0-2.0); Eosinophils # (auto) 0.3 10 ^3/uL (0-0.8); Eosinophils % (auto) 2.2 % (0.0-7.0); Hematocrit 36.9 % (41.0-53.0); Hemoglobin 12.3 g/dL (13.5-17.5); Lymphocytes # (auto) 1.5 10 ^3/uL (0.4-5.4); Lymphocytes % (auto) 11.3 % (10.0-50.0); Mean Corpuscular Hemoglobin 28.4 pg (28.0-32.0); Mean Corpuscular Hgb Conc. 33.2 g/dL (32.0-36.0); Mean Corpuscular Volume 85.7 fL (80.0-100.0); Monocytes # (auto) 1.1 10 ^3/uL (0-1.3); Monocytes % (auto) 8.2 % (0.0-12.0); Neutrophils # (auto) 10.3 10 ^3/uL (1.6-8.6); Neutrophils % (auto) 77.2 % (37.0-80.0); Platelet Count (auto) 289 10^3/uL (140-450); Red Blood Cells 4.31 10^6/uL (4.5-5.90); Red Cell Distribution Width 14.8 % (11.8-14.3); White Blood Cell 13.3 10^3/uL (4.4-10.8)
--- NOTE | 2024-07-05 12:06 | DVHPN2 ---
Subjective Status post surgery of his right leg yesterday with the evacuation of the hematoma He is doing well Changes from previous H/P or p: Changes Musculoskeletal: arm pain, leg pain Objective Vitals Vital Signs Date Time Temp Pulse Resp B/P (MAP) Pulse Ox O2 Delivery O2 Flow Rate FiO2 07/05/24 11:55 60 16 99 07/05/24 11:49 Room Air 07/05/24 11:49 0 21 07/05/24 09:03 118/41 07/05/24 09:00 97.7 97.7 Intake/Output Intake and Output 07/05/24 07:00 Intake Total 970 ml Output Total 625 ml Balance 345 ml Intake Oral 770 ml IV Total 200 ml Output Urine Total 625 ml # Voids 4 # Bowel Movements 1 General Appearance: Alert, Oriented X3, Cooperative Extremities: Other (Right lower extremity with redness and swelling around the miguel area down to the ankleBilateral 2+ edema ) Medications Current Medications Medications Dose Ordered Sig/Armando Route Start Time Stop Time Status Last Admin Dose Admin Ondansetron HCl 4 mg Q4HP PRN IV 06/22/24 11:15 06/25/24 02:20 4 MG Enoxaparin Sodium 40 mg DAILY SC 06/23/24 10:00 07/05/24 08:59 40 MG Acetaminophen 650 mg Q6HP PRN PO 06/22/24 11:15 07/02/24 09:31 650 MG Allopurinol 100 mg DAILY PO 06/23/24 10:00 07/05/24 09:00 100 MG Metoprolol Tartrate 50 mg BID PO 06/22/24 22:00 07/04/24 20:54 50 MG Atorvastatin Calcium 40 mg HS PO 06/22/24 22:00 07/04/24 20:54 40 MG Valsartan 320 mg DAILY PO 06/22/24 11:48 07/05/24 09:01 320 MG Ceftriaxone Sodium 50 ml @ 100 mls/hr DAILY@09 IV 06/23/24 09:00 07/05/24 08:59 100 MLS/HR Hydralazine HCl 10 mg Q6HPRN PRN IV 06/22/24 16:15 07/02/24 14:24 10 MG Patient Own Medication 1 HS EACHEYE 06/23/24 22:00 07/04/24 20:55 1 Vancomycin HCl 0 ml @ 0 mls/hr UD IV 06/23/24 12:15 Acetaminophen/ Hydrocodone Bitart 1 tab Q6HP PRN PO 06/23/24 12:15 07/05/24 05:22 1 TAB Vancomycin HCl 200 ml @ 200 mls/hr DAILY@1300 IV 06/24/24 13:00 07/03/24 12:52 200 MLS/HR Enteral Nutritional Formula 240 ml TIDWM PO 06/24/24 18:00 07/05/24 08:00 240 ML Aspirin 81 mg DAILY PO 06/25/24 10:00 07/05/24 08:59 81 MG Clopidogrel Bisulfate 75 mg DAILY PO 06/25/24 10:00 07/05/24 09:00 75 MG Pantoprazole Sodium 40 mg DAILY IV 06/26/24 10:00 07/05/24 08:59 40 MG Sucralfate 1 gm TID@0600,1130,2200 PO 06/26/24 06:00 07/02/24 05:38 1 GM Albuterol 2.5 mg Q6HWA NEB 06/28/24 18:00 07/05/24 11:49 2.5 MG Amlodipine Besylate 5 mg DAILY PO 07/03/24 10:00 07/05/24 09:03 5 MG Gabapentin 100 mg TID PO 07/02/24 14:00 07/05/24 05:22 100 MG Laboratory Results Laboratory Tests 07/04/24 06:05 07/05/24 04:43 Urinalysis Test 07/04/24 20:50 Urine Color Light-yellow (Yellow) Urine Clarity Clear (Clear) Urine pH 6.5 (5.0-9.0) Urine Specific [place] 1.015 (1.001-1.035) Urine Protein Negative (Negative) Urine Ketones Negative (Negative) Urine Blood Negative /uL (Negative) Urine Nitrite Negative (Negative) Urine Bilirubin Negative (Negative) Urine Urobilinogen Normal mg/dL (Negative) Urine Leukocyte Esterase Negative /uL (Negative) Urine RBC <1 /hpf (0 - 3) Urine Microscopic WBC 1 /HPF (0-3) Urine Squamous Epithelial Cells None seen /hpf (<5) Urine Bacteria Few /hpf (None Seen) H Urine Glucose Normal mg/dL (Normal) Microbiology Microbiology Date/Time Source Procedure Growth Status 07/04/24 13:20 Leg Right Aerobic Culture - Preliminary Resulted 06/22/24 09:50 Blood Blood Culture - Final NO GROWTH AFTER 5 DAYS OF INCUBATION. Complete Assessment/Plan Assessment/Plan Right lower extremity cellulitis Bilateral lower extremity edema rule out heart failure Hypertension History of coronary artery disease Rule out heart failure Hard of hearing Hypokalemia Acute on chronic diastolic heart failure Severe pulmonary hypertension Severe critical aortic stenosis Plan IV antibiotics Rocephin and vancomycin Start IV Lasix Get an echocardiogram Monitor the high blood pressure Metoprolol and valsartan Discussed with the POA at the bedside Full code 06/24/2024: Add ensure Continue IV antibiotics Diastolic heart failure: Continue Lasix Echocardiogram showed moderate diastolic dysfunction with an ejection fraction of 65% and heavily calcified aortic valve with a critical aortic stenosis, also critical pulmonary hypertension RV SP is 81 Hypomagnesemia: Replace Hypokalemia: Replace Chronic kidney disease: Creatinine 1.3, GFR 53 06/25/2024: NSTEMI: Aspirin, Plavix, Critical aortic stenosis Diastolic heart failure , acute on chronic: Lasix, changed to p.o., cut down on dose Critical pulmonary hypertension History of CAD Hypertensive emergency Hypokalemia : Replace Right lower extremity cellulitis : Ceftriaxone and vancomycin Sepsis : Continue IV antibiotic Hypomagnesemia : Replace as needed Lipitor new Dysphagia: Start Protonix IV, consult GI 06/26/2024: Abscess or hematoma of the right leg: Consult surgery Cellulitis of the right lower extremity: Continue IV antibiotics Critical aortic stenosis Critical pulmonary hypertension Dysphagia Hypokalemia Sepsis 06/27/2024: Right lower extremity cellulitis: Continue IV antibiotic Rocephin and vancomycin Hematoma of the right lower extremity: Surgery consulted, conservative treatment Dysphagia: Continue sucralfate Hypertension: Continue metoprolol and Diovan NSTEMI: Continue aspirin and Plavix Monitor closely Guarded prognosis 06/28/24: Continue IV antibiotics Cough: Med Nebs Pain control: [place] prn Physical therapy eval 06/29/2024: Continue IV antibiotics and if the hematoma in the right leg does not improve or becomes worse then we will have to call Orthopedic surgery per the recommendation of Dr. Kalia Delgado 06/30/2024: Continue the current management with the IV antibiotics Physical therapy evaluation Control the pain with [place] as needed If the hematoma does not get better then we will consider consulting orthopedic surgery or IR to drain it 07/01/2024: His right leg appears to be better, it is not tender to touch anymore He is complaining that he ran out or lost his eyedrops so he needs a refill Otherwise continue to give antibiotics and get physical therapy He is generally weak He will need rehab at a SNF for physical therapy and he can be discharged on p.o. antibiotics 07/02/2024: Neuropathy pain: Start Neurontin 100 mg t.i.d. Right leg abscess versus hematoma: Consult Orthopedic surgery, do MRI of the right tib-fib Continue IV antibiotics Four general weakness: Arrange SNF Hypertension, uncontrolled: Continue metoprolol and valsartan, add amlodipine 07/03/24: Scheduled for I&D tomorrow Continue IV antibiotics 07/04/2024: Scheduled for surgery today Continue the current management Discharge planning to SNF possibly tomorrow 07/05/2024: Continue the current management Continue physical therapy while here Sent to SNF once a bed is available Plan discussed with: Patient, Spouse Date of Service: July 05, 2024 Billing Provider: CHONG CANADA MD Common Visit Codes: NOT BILLABLE CHONG CANADA MD July 05, 2024 12:06
[2024-07-05] MEDS: HYDROcodone-ACET 10/325MG TAB PO PRN (17:16)
[2024-07-06] VITALS (14 sets, daily range): BP systolic 124–141; BP diastolic 46–94; PULSE 60–82; RESP 16–20; TEMP 97.2–98.7; O2SAT 93–100
--- NOTE | 2024-07-06 16:47 | DVHPN2 ---
Subjective New complaints Changes from previous H/P or p: Changes Musculoskeletal: arm pain, leg pain Objective Vitals Vital Signs Date Time Temp Pulse Resp B/P (MAP) Pulse Ox O2 Delivery O2 Flow Rate FiO2 07/06/24 13:00 98.5 78 18 124/70 (88) 94 98.5 07/06/24 11:51 Room Air 0.0 07/06/24 11:51 21 Intake/Output Intake and Output 07/06/24 07:00 Intake Total 1634 ml Output Total 1650 ml Balance -16 ml Intake Oral 1384 ml IV Total 250 ml Output Urine Total 1650 ml # Bowel Movements 2 General Appearance: Alert, Oriented X3, Cooperative Extremities: Other (Right lower extremity with redness and swelling around the miguel area down to the ankleBilateral 2+ edema ) Medications Current Medications Medications Dose Ordered Sig/Armando Route Start Time Stop Time Status Last Admin Dose Admin Ondansetron HCl 4 mg Q4HP PRN IV 06/22/24 11:15 06/25/24 02:20 4 MG Enoxaparin Sodium 40 mg DAILY SC 06/23/24 10:00 07/06/24 09:02 40 MG Acetaminophen 650 mg Q6HP PRN PO 06/22/24 11:15 07/02/24 09:31 650 MG Allopurinol 100 mg DAILY PO 06/23/24 10:00 07/06/24 09:01 100 MG Metoprolol Tartrate 50 mg BID PO 06/22/24 22:00 07/06/24 09:03 50 MG Atorvastatin Calcium 40 mg HS PO 06/22/24 22:00 07/05/24 22:03 40 MG Valsartan 320 mg DAILY PO 06/22/24 11:48 07/06/24 09:04 320 MG Ceftriaxone Sodium 50 ml @ 100 mls/hr DAILY@09 IV 06/23/24 09:00 07/06/24 09:04 100 MLS/HR Hydralazine HCl 10 mg Q6HPRN PRN IV 06/22/24 16:15 07/02/24 14:24 10 MG Patient Own Medication 1 HS EACHEYE 06/23/24 22:00 07/05/24 22:03 1 Vancomycin HCl 0 ml @ 0 mls/hr UD IV 06/23/24 12:15 Vancomycin HCl 200 ml @ 200 mls/hr DAILY@1300 IV 06/24/24 13:00 07/06/24 13:19 200 MLS/HR Enteral Nutritional Formula 240 ml TIDWM PO 06/24/24 18:00 07/06/24 12:00 240 ML Aspirin 81 mg DAILY PO 06/25/24 10:00 07/06/24 09:02 81 MG Clopidogrel Bisulfate 75 mg DAILY PO 06/25/24 10:00 07/06/24 09:02 75 MG Pantoprazole Sodium 40 mg DAILY IV 06/26/24 10:00 07/06/24 09:02 40 MG Sucralfate 1 gm TID@0600,1130,2200 PO 06/26/24 06:00 07/05/24 22:03 1 GM Albuterol 2.5 mg Q6HWA NEB 06/28/24 18:00 07/06/24 11:51 2.5 MG Amlodipine Besylate 5 mg DAILY PO 07/03/24 10:00 07/06/24 09:04 5 MG Gabapentin 100 mg TID PO 07/02/24 14:00 07/06/24 13:19 100 MG Acetaminophen/ Hydrocodone Bitart 1 tab Q4HPRN PRN PO 07/05/24 15:00 07/06/24 13:28 1 TAB Laboratory Results Laboratory Tests 07/04/24 06:05 07/05/24 04:43 Urinalysis Test 07/04/24 20:50 Urine Color Light-yellow (Yellow) Urine Clarity Clear (Clear) Urine pH 6.5 (5.0-9.0) Urine Specific [place] 1.015 (1.001-1.035) Urine Protein Negative (Negative) Urine Ketones Negative (Negative) Urine Blood Negative /uL (Negative) Urine Nitrite Negative (Negative) Urine Bilirubin Negative (Negative) Urine Urobilinogen Normal mg/dL (Negative) Urine Leukocyte Esterase Negative /uL (Negative) Urine RBC <1 /hpf (0 - 3) Urine Microscopic WBC 1 /HPF (0-3) Urine Squamous Epithelial Cells None seen /hpf (<5) Urine Bacteria Few /hpf (None Seen) H Urine Glucose Normal mg/dL (Normal) Microbiology Microbiology Date/Time Source Procedure Growth Status 07/04/24 13:20 Leg Right Anaerobic Culture - Preliminary Resulted 06/22/24 09:50 Blood Blood Culture - Final NO GROWTH AFTER 5 DAYS OF INCUBATION. Complete Assessment/Plan Assessment/Plan Right lower extremity cellulitis Bilateral lower extremity edema rule out heart failure Hypertension History of coronary artery disease Rule out heart failure Hard of hearing Hypokalemia Acute on chronic diastolic heart failure Severe pulmonary hypertension Severe critical aortic stenosis Plan IV antibiotics Rocephin and vancomycin Start IV Lasix Get an echocardiogram Monitor the high blood pressure Metoprolol and valsartan Discussed with the POA at the bedside Full code 06/24/2024: Add ensure Continue IV antibiotics Diastolic heart failure: Continue Lasix Echocardiogram showed moderate diastolic dysfunction with an ejection fraction of 65% and heavily calcified aortic valve with a critical aortic stenosis, also critical pulmonary hypertension RV SP is 81 Hypomagnesemia: Replace Hypokalemia: Replace Chronic kidney disease: Creatinine 1.3, GFR 53 06/25/2024: NSTEMI: Aspirin, Plavix, Critical aortic stenosis Diastolic heart failure , acute on chronic: Lasix, changed to p.o., cut down on dose Critical pulmonary hypertension History of CAD Hypertensive emergency Hypokalemia : Replace Right lower extremity cellulitis : Ceftriaxone and vancomycin Sepsis : Continue IV antibiotic Hypomagnesemia : Replace as needed Lipitor new Dysphagia: Start Protonix IV, consult GI 06/26/2024: Abscess or hematoma of the right leg: Consult surgery Cellulitis of the right lower extremity: Continue IV antibiotics Critical aortic stenosis Critical pulmonary hypertension Dysphagia Hypokalemia Sepsis 06/27/2024: Right lower extremity cellulitis: Continue IV antibiotic Rocephin and vancomycin Hematoma of the right lower extremity: Surgery consulted, conservative treatment Dysphagia: Continue sucralfate Hypertension: Continue metoprolol and Diovan NSTEMI: Continue aspirin and Plavix Monitor closely Guarded prognosis 06/28/24: Continue IV antibiotics Cough: Med Nebs Pain control: Fedora prn Physical therapy eval 06/29/2024: Continue IV antibiotics and if the hematoma in the right leg does not improve or becomes worse then we will have to call Orthopedic surgery per the recommendation of Dr. Kalia Delgado 06/30/2024: Continue the current management with the IV antibiotics Physical therapy evaluation Control the pain with Fedora as needed If the hematoma does not get better then we will consider consulting orthopedic surgery or IR to drain it 07/01/2024: His right leg appears to be better, it is not tender to touch anymore He is complaining that he ran out or lost his eyedrops so he needs a refill Otherwise continue to give antibiotics and get physical therapy He is generally weak He will need rehab at a SNF for physical therapy and he can be discharged on p.o. antibiotics 07/02/2024: Neuropathy pain: Start Neurontin 100 mg t.i.d. Right leg abscess versus hematoma: Consult Orthopedic surgery, do MRI of the right tib-fib Continue IV antibiotics Four general weakness: Arrange SNF Hypertension, uncontrolled: Continue metoprolol and valsartan, add amlodipine 07/03/24: Scheduled for I&D tomorrow Continue IV antibiotics 07/04/2024: Scheduled for surgery today Continue the current management Discharge planning to SNF possibly tomorrow 07/05/2024: Continue the current management Continue physical therapy while here Sent to SNF once a bed is available 07/06/2024: The patient is supposed to go to SNF, no beds yet Continue to monitor the patient closely Keep the wound clean Discharge to SNF once a bed is available for physical therapy Plan discussed with: Patient My Orders Orders - CHONG CANADA MD Procedure Category Date Status Time Discharge DISCHARGE 07/06/24 Transmitted 12:13 Vancomycin,Trough LAB 07/07/24 Verified 12:00 Complete Blood Count LAB 07/07/24 Verified 04:00 Creatinine LAB 07/07/24 Verified 04:00 Date of Service: July 06, 2024 Billing Provider: CHONG CANADA MD Common Visit Codes: NOT BILLABLE CHONG CANADA MD July 06, 2024 16:47
[2024-07-07] VITALS (14 sets, daily range): BP systolic 120–160; BP diastolic 35–63; PULSE 58–75; RESP 16–20; TEMP 97.2–97.6; O2SAT 93–100
[2024-07-07 07:08] LABS: Basophils # (auto) 0.1 10 ^3/uL (0-0.2); Basophils % (auto) 1.3 % (0.0-2.0); Eosinophils # (auto) 0.3 10 ^3/uL (0-0.8); Hematocrit 35.5 % (41.0-53.0); Hemoglobin 11.7 g/dL (13.5-17.5); Lymphocytes # (auto) 1.4 10 ^3/uL (0.4-5.4); Lymphocytes % (auto) 14.6 % (10.0-50.0); Mean Corpuscular Hemoglobin 28.5 pg (28.0-32.0); Mean Corpuscular Hgb Conc. 32.9 g/dL (32.0-36.0); Mean Corpuscular Volume 86.5 fL (80.0-100.0); Monocytes # (auto) 0.9 10 ^3/uL (0-1.3); Neutrophils # (auto) 6.7 10 ^3/uL (1.6-8.6); Neutrophils % (auto) 71.1 % (37.0-80.0); Platelet Count (auto) 254 10^3/uL (140-450); Red Cell Distribution Width 14.9 % (11.8-14.3); White Blood Cell 9.5 10^3/uL (4.4-10.8)
--- NOTE | 2024-07-07 13:32 | DVHPN2 ---
Subjective No New complaints Awaiting is SNF placement Changes from previous H/P or p: Changes Musculoskeletal: arm pain, leg pain Objective Vitals Vital Signs Date Time Temp Pulse Resp B/P (MAP) Pulse Ox O2 Delivery O2 Flow Rate FiO2 07/07/24 11:24 65 16 100 07/07/24 10:40 115/56 07/07/24 08:00 Room Air* 0 21 07/07/24 05:00 97.6 97.6 Intake/Output Intake and Output 07/07/24 07:00 Intake Total 1150 ml Output Total 700 ml Balance 450 ml Intake Oral 900 ml IV Total 250 ml Output Urine Total 700 ml # Voids 3 # Bowel Movements 3 General Appearance: Alert, Oriented X3, Cooperative Extremities: Other (Right lower extremity with redness and swelling around the miguel area down to the ankleBilateral 2+ edema ) Medications Current Medications Medications Dose Ordered Sig/Armando Route Start Time Stop Time Status Last Admin Dose Admin Ondansetron HCl 4 mg Q4HP PRN IV 06/22/24 11:15 06/25/24 02:20 4 MG Enoxaparin Sodium 40 mg DAILY SC 06/23/24 10:00 07/07/24 10:41 40 MG Acetaminophen 650 mg Q6HP PRN PO 06/22/24 11:15 07/02/24 09:31 650 MG Allopurinol 100 mg DAILY PO 06/23/24 10:00 07/07/24 10:36 100 MG Metoprolol Tartrate 50 mg BID PO 06/22/24 22:00 07/06/24 09:03 50 MG Atorvastatin Calcium 40 mg HS PO 06/22/24 22:00 07/06/24 21:57 40 MG Valsartan 320 mg DAILY PO 06/22/24 11:48 07/07/24 10:39 320 MG Ceftriaxone Sodium 50 ml @ 100 mls/hr DAILY@09 IV 06/23/24 09:00 07/07/24 10:32 100 MLS/HR Hydralazine HCl 10 mg Q6HPRN PRN IV 06/22/24 16:15 07/02/24 14:24 10 MG Patient Own Medication 1 HS EACHEYE 06/23/24 22:00 07/06/24 21:58 1 Vancomycin HCl 0 ml @ 0 mls/hr UD IV 06/23/24 12:15 Vancomycin HCl 200 ml @ 200 mls/hr DAILY@1300 IV 06/24/24 13:00 07/06/24 13:19 200 MLS/HR Enteral Nutritional Formula 240 ml TIDWM PO 06/24/24 18:00 07/07/24 08:00 240 ML Aspirin 81 mg DAILY PO 06/25/24 10:00 07/07/24 10:36 81 MG Clopidogrel Bisulfate 75 mg DAILY PO 06/25/24 10:00 07/07/24 10:36 75 MG Pantoprazole Sodium 40 mg DAILY IV 06/26/24 10:00 07/07/24 10:32 40 MG Sucralfate 1 gm TID@0600,1130,2200 PO 06/26/24 06:00 07/05/24 22:03 1 GM Albuterol 2.5 mg Q6HWA NEB 06/28/24 18:00 07/07/24 11:14 2.5 MG Amlodipine Besylate 5 mg DAILY PO 07/03/24 10:00 07/07/24 10:40 5 MG Gabapentin 100 mg TID PO 07/02/24 14:00 07/07/24 06:13 100 MG Acetaminophen/ Hydrocodone Bitart 1 tab Q4HPRN PRN PO 07/05/24 15:00 07/07/24 06:18 1 TAB Laboratory Results Laboratory Tests 07/04/24 06:05 07/07/24 05:57 Urinalysis Test 07/04/24 20:50 Urine Color Light-yellow (Yellow) Urine Clarity Clear (Clear) Urine pH 6.5 (5.0-9.0) Urine Specific [place] 1.015 (1.001-1.035) Urine Protein Negative (Negative) Urine Ketones Negative (Negative) Urine Blood Negative /uL (Negative) Urine Nitrite Negative (Negative) Urine Bilirubin Negative (Negative) Urine Urobilinogen Normal mg/dL (Negative) Urine Leukocyte Esterase Negative /uL (Negative) Urine RBC <1 /hpf (0 - 3) Urine Microscopic WBC 1 /HPF (0-3) Urine Squamous Epithelial Cells None seen /hpf (<5) Urine Bacteria Few /hpf (None Seen) H Urine Glucose Normal mg/dL (Normal) Microbiology Microbiology Date/Time Source Procedure Growth Status 07/04/24 13:20 Leg Right Anaerobic Culture - Preliminary Resulted 06/22/24 09:50 Blood Blood Culture - Final NO GROWTH AFTER 5 DAYS OF INCUBATION. Complete Assessment/Plan Assessment/Plan Right lower extremity cellulitis Bilateral lower extremity edema rule out heart failure Hypertension History of coronary artery disease Rule out heart failure Hard of hearing Hypokalemia Acute on chronic diastolic heart failure Severe pulmonary hypertension Severe critical aortic stenosis Plan IV antibiotics Rocephin and vancomycin Start IV Lasix Get an echocardiogram Monitor the high blood pressure Metoprolol and valsartan Discussed with the POA at the bedside Full code 06/24/2024: Add ensure Continue IV antibiotics Diastolic heart failure: Continue Lasix Echocardiogram showed moderate diastolic dysfunction with an ejection fraction of 65% and heavily calcified aortic valve with a critical aortic stenosis, also critical pulmonary hypertension RV SP is 81 Hypomagnesemia: Replace Hypokalemia: Replace Chronic kidney disease: Creatinine 1.3, GFR 53 06/25/2024: NSTEMI: Aspirin, Plavix, Critical aortic stenosis Diastolic heart failure , acute on chronic: Lasix, changed to p.o., cut down on dose Critical pulmonary hypertension History of CAD Hypertensive emergency Hypokalemia : Replace Right lower extremity cellulitis : Ceftriaxone and vancomycin Sepsis : Continue IV antibiotic Hypomagnesemia : Replace as needed Lipitor new Dysphagia: Start Protonix IV, consult GI 06/26/2024: Abscess or hematoma of the right leg: Consult surgery Cellulitis of the right lower extremity: Continue IV antibiotics Critical aortic stenosis Critical pulmonary hypertension Dysphagia Hypokalemia Sepsis 06/27/2024: Right lower extremity cellulitis: Continue IV antibiotic Rocephin and vancomycin Hematoma of the right lower extremity: Surgery consulted, conservative treatment Dysphagia: Continue sucralfate Hypertension: Continue metoprolol and Diovan NSTEMI: Continue aspirin and Plavix Monitor closely Guarded prognosis 06/28/24: Continue IV antibiotics Cough: Med Nebs Pain control: Kathryn prn Physical therapy eval 06/29/2024: Continue IV antibiotics and if the hematoma in the right leg does not improve or becomes worse then we will have to call Orthopedic surgery per the recommendation of Dr. Kalia Delgado 06/30/2024: Continue the current management with the IV antibiotics Physical therapy evaluation Control the pain with Kathryn as needed If the hematoma does not get better then we will consider consulting orthopedic surgery or IR to drain it 07/01/2024: His right leg appears to be better, it is not tender to touch anymore He is complaining that he ran out or lost his eyedrops so he needs a refill Otherwise continue to give antibiotics and get physical therapy He is generally weak He will need rehab at a SNF for physical therapy and he can be discharged on p.o. antibiotics 07/02/2024: Neuropathy pain: Start Neurontin 100 mg t.i.d. Right leg abscess versus hematoma: Consult Orthopedic surgery, do MRI of the right tib-fib Continue IV antibiotics Four general weakness: Arrange SNF Hypertension, uncontrolled: Continue metoprolol and valsartan, add amlodipine 07/03/24: Scheduled for I&D tomorrow Continue IV antibiotics 07/04/2024: Scheduled for surgery today Continue the current management Discharge planning to SNF possibly tomorrow 07/05/2024: Continue the current management Continue physical therapy while here Sent to SNF once a bed is available 07/06/2024: The patient is supposed to go to SNF, no beds yet Continue to monitor the patient closely Keep the wound clean Discharge to SNF once a bed is available for physical therapy 07/07/2024: Continue current management regarding physical therapy and activity until a SNF bed is found at the facility Plan discussed with: Patient, Spouse My Orders Orders - CHONG CANADA MD Procedure Category Date Status Time * Wound Consult CONS 07/07/24 Transmitted Date of Service: July 07, 2024 Billing Provider: CHONG CANADA MD Common Visit Codes: NOT BILLABLE CHONG CANADA MD July 07, 2024 13:32
--- NOTE | 2024-07-07 23:07 | DVHPN2 ---
Progress Note - Dictate Date Seen: July 07, 2024 Has the PT tested + for MRSA If YES, has PT been informed?: No Medical Necessity Reason Pt with a Central, PICC or Fol: No Subjective No new complaints Patient tolerating diet Feels better Less pain in the right leg Repeat CT of the leg shows a stable subcutaneous hematoma s/p I and D and drainage by Dr Manzano vital signs Vital Sign Date Time Temp Pulse Resp B/P (MAP) Pulse Ox O2 Delivery O2 Flow Rate FiO2 07/07/24 19:30 58 07/07/24 19:30 16 95 Room Air* 0 21 07/07/24 17:00 97.2 144/53 (83) 97.2 Total Intake and Output 07/06/24 07/06/24 07/07/24 15:00 23:00 07:00 Intake Total 250 ml 500 ml 400 ml Output Total 700 ml Balance 250 ml 500 ml -300 ml medications Current Medications Medications Dose Ordered Sig/Armando Route Start Time Stop Time Status Last Admin Dose Admin Ondansetron HCl 4 mg Q4HP PRN IV 06/22/24 11:15 06/25/24 02:20 4 MG Enoxaparin Sodium 40 mg DAILY SC 06/23/24 10:00 07/07/24 10:41 40 MG Acetaminophen 650 mg Q6HP PRN PO 06/22/24 11:15 07/02/24 09:31 650 MG Allopurinol 100 mg DAILY PO 06/23/24 10:00 07/07/24 10:36 100 MG Metoprolol Tartrate 50 mg BID PO 06/22/24 22:00 07/06/24 09:03 50 MG Atorvastatin Calcium 40 mg HS PO 06/22/24 22:00 07/07/24 21:07 40 MG Valsartan 320 mg DAILY PO 06/22/24 11:48 07/07/24 10:39 320 MG Ceftriaxone Sodium 50 ml @ 100 mls/hr DAILY@09 IV 06/23/24 09:00 07/07/24 10:32 100 MLS/HR Hydralazine HCl 10 mg Q6HPRN PRN IV 06/22/24 16:15 07/02/24 14:24 10 MG Patient Own Medication 1 HS EACHEYE 06/23/24 22:00 07/07/24 21:07 1 Vancomycin HCl 0 ml @ 0 mls/hr UD IV 06/23/24 12:15 Enteral Nutritional Formula 240 ml TIDWM PO 06/24/24 18:00 07/07/24 18:00 240 ML Aspirin 81 mg DAILY PO 06/25/24 10:00 07/07/24 10:36 81 MG Clopidogrel Bisulfate 75 mg DAILY PO 06/25/24 10:00 07/07/24 10:36 75 MG Pantoprazole Sodium 40 mg DAILY IV 06/26/24 10:00 07/07/24 10:32 40 MG Sucralfate 1 gm TID@0600,1130,2200 PO 06/26/24 06:00 07/05/24 22:03 1 GM Albuterol 2.5 mg Q6HWA NEB 06/28/24 18:00 07/07/24 11:14 2.5 MG Amlodipine Besylate 5 mg DAILY PO 07/03/24 10:00 07/07/24 10:40 5 MG Gabapentin 100 mg TID PO 07/02/24 14:00 07/07/24 21:07 100 MG Acetaminophen/ Hydrocodone Bitart 1 tab Q4HPRN PRN PO 07/05/24 15:00 07/07/24 17:04 1 TAB objective General Appearance: Alert, Oriented X3, Cooperative, No acute distress HEENT: Atraumatic, PERRLA, EOMI, Mucous membrane moist/pink Respiratory: Clear to auscultation, Normal air movement Cardiovascular: Regular rate, Normal S1, Normal S2, No murmurs, no chest wall tenderness Abdominal: Normal bowel sounds, Soft, No tenderness, No hepatospenomegaly, No masses Extremities: No clubbing, No cyanosis, No edema, Normal pulses, Right leg swelling and edema function to ankle Skin: No rashes, No breakdown, No significant lesion Neuro: Normal gait, Normal speech, Strength at 5/5 X4 ext, Normal tone, Sensation intact, Cranial nerves 3-12 NL, Reflexes 2+ Psych/Mental Status: Mental status NL, Mood NL laboratory and microbiology Laboratory Tests 07/07/24 05:57 07/04/24 06:05 Test 07/04/24 06:05 Range/Units Serum Glucose 107 H 74-106 mg/dL Problems(with codes): (1) Hematoma of lower extremity (2) Peripheral neuropathy (3) Skin infection (4) Dysphagia (5) Hypercalcemia (6) Hypertensive emergency (7) Cellulitis Prognosis Plan Continue supportive care Advance diet as tolerated Physical therapy ongoing Awaiting placement at SNF Dietary Evaluation Review Recommendations by RD: Increase Calorie Intake Comments: 1) Initiate Ensure Enlive bid. Encourage optimal PO intake 2) Consider removing cardiac restriction from diet d/t decreased appetite and advanced age 3) Initiate vitamin C @ 500 mg bid and zinc sulfate @ 220 mg qd for 7-10 days 4) Follow-up with cardiology and nephrology 5) Continue to monitor I&O, labs, and skin integrity Expected Outcomes/Goals: 1) appetite and labs to improve 2) wound to improve 3) follow-up in 3-5 days Plan discussed with: Patient LINO FITZGERALD MD July 07, 2024 23:07
[2024-07-08] VITALS (13 sets, daily range): BP systolic 132–158; BP diastolic 44–60; PULSE 59–82; RESP 16–20; TEMP 97.4–98.1; O2SAT 94–100
[2024-07-08 06:59] LABS: Basophils # (auto) 0.1 10 ^3/uL (0-0.2); Basophils % (auto) 1.4 % (0.0-2.0); Eosinophils # (auto) 0.3 10 ^3/uL (0-0.8); Eosinophils % (auto) 3.8 % (0.0-7.0); Hematocrit 36.5 % (41.0-53.0); Hemoglobin 12.1 g/dL (13.5-17.5); Lymphocytes # (auto) 1.2 10 ^3/uL (0.4-5.4); Lymphocytes % (auto) 14.1 % (10.0-50.0); Mean Corpuscular Hemoglobin 28.7 pg (28.0-32.0); Mean Corpuscular Hgb Conc. 33.1 g/dL (32.0-36.0); Mean Corpuscular Volume 86.9 fL (80.0-100.0); Monocytes # (auto) 0.8 10 ^3/uL (0-1.3); Monocytes % (auto) 8.5 % (0.0-12.0); Neutrophils # (auto) 6.4 10 ^3/uL (1.6-8.6); Neutrophils % (auto) 72.2 % (37.0-80.0); Nucleated Red Blood Cells % 0.1 %; Platelet Count (auto) 288 10^3/uL (140-450); Red Cell Distribution Width 15.2 % (11.8-14.3); White Blood Cell 8.9 10^3/uL (4.4-10.8)
--- NOTE | 2024-07-08 11:34 | DVHDS2 ---
Discharge Summary Date of Admission June 22, 2024 at 11:12 Date of Discharge: July 08, 2024 Labs/Diagnostic Data: Laboratory Results Test 07/08/24 06:05 07/07/24 11:55 07/04/24 20:50 07/04/24 06:05 White Blood Count 8.9 10^3/uL (4.4-10.8) Red Blood Count 4.20 10^6/uL (4.5-5.90) Hemoglobin 12.1 g/dL (13.5-17.5) Hematocrit 36.5 % (41.0-53.0) Mean Corpuscular Volume 86.9 fL (80.0-100.0) Mean Corpuscular Hemoglobin 28.7 pg (28.0-32.0) Mean Corpuscular Hemoglobin Concent 33.1 g/dL (32.0-36.0) Red Cell Distribution Width 15.2 % (11.8-14.3) Platelet Count 288 10^3/uL (140-450) Mean Platelet Volume 8.9 fL (6.9-10.8) Neutrophils (%) (Auto) 72.2 % (37.0-80.0) Lymphocytes (%) (Auto) 14.1 % (10.0-50.0) Monocytes (%) (Auto) 8.5 % (0.0-12.0) Eosinophils (%) (Auto) 3.8 % (0.0-7.0) Basophils (%) (Auto) 1.4 % (0.0-2.0) Neutrophils # (Auto) 6.4 10 ^3/uL (1.6-8.6) Lymphocytes # (Auto) 1.2 10 ^3/uL (0.4-5.4) Monocytes # (Auto) 0.8 10 ^3/uL (0-1.3) Eosinophils # (Auto) 0.3 10 ^3/uL (0-0.8) Basophils # (Auto) 0.1 10 ^3/uL (0-0.2) Nucleated Red Blood Cells 0.1 % Creatinine 1.31 mg/dL (0.700-1.30) Glomerular Filtration Rate Calc 52 mL/min (>90) Random Vancomycin Level 14.5 ug/mL (5-10) Vancomycin Level Trough 20.5 ug/mL (5-10) Urine Color Light-yellow (Yellow) Urine Clarity Clear (Clear) Urine pH 6.5 (5.0-9.0) Urine Specific [place] 1.015 (1.001-1.035) Urine Protein Negative (Negative) Urine Ketones Negative (Negative) Urine Blood Negative /uL (Negative) Urine Nitrite Negative (Negative) Urine Bilirubin Negative (Negative) Urine Urobilinogen Normal mg/dL (Negative) Urine Leukocyte Esterase Negative /uL (Negative) Urine RBC <1 /hpf (0 - 3) Urine Microscopic WBC 1 /HPF (0-3) Urine Squamous Epithelial Cells None seen /hpf (<5) Urine Bacteria Few /hpf (None Seen) Urine Glucose Normal mg/dL (Normal) Prothrombin Time 11.4 sec (9.3-11.8) Prothrombin Time INR 1.08 (0.9-1.15) Activated Partial Thromboplast Time 30.2 SEC (24.5-34.5) Sodium Level 139 mmol/L (136-145) Potassium Level 4.4 mmol/L (3.5-5.1) Chloride Level 107 mmol/L (98-107) Carbon Dioxide Level 24 mmol/L (20-31) Anion Gap 8 (5-15) Blood Urea Nitrogen 26 mg/dL (9-23) BUN/Creatinine Ratio 21.1 (10.0-20.0) Serum Glucose 107 mg/dL (74-106) Calcium Level 10.3 mg/dL (8.7-10.4) Test 06/27/24 06:35 06/25/24 04:37 06/24/24 09:12 06/22/24 09:50 Magnesium Level 2.2 mg/dL (1.6-2.6) Total Bilirubin 0.8 mg/dL (0.2-1.0) Aspartate Amino Transferase (AST) 43 U/L (13-40) Alanine Aminotransferase (ALT) 30 U/L (7-40) Alkaline Phosphatase 76 U/L (46-116) Total Protein 5.7 g/dL (5.7-8.2) Albumin 3.5 g/dL (3.2-4.8) Troponin I High Sensitivity 595 ng/L (</=54) B-Type Natriuretic Peptide 846.93 pg/mL (0-100) Triglycerides Level 89 mg/dL (< 150) Cholesterol Level 82 mg/dL (< 200) LDL Cholesterol 26 mg/dL (< 100) HDL Cholesterol 36 mg/dL (40-59) Erythrocyte Sedimentation Rate 11 mm/hr (0-20) Lactic Acid Level 1.1 mmol/L (0.4-2.0) C-Reactive Protein High Sensitivity 7.41 mg/dL (<1.0) Other Laboratory Tests 07/08/24 06:05 07/04/24 06:05 Brief Hx & Hospital Course: Final diagnoses: Right lower extremity cellulitis Bilateral lower extremity edema due to heart failure Acute on chronic diastolic heart failure Critical severe aortic stenosis Critical pulmonary hypertension Hypertension History of coronary artery disease Rule out heart failure Hard of hearing Hypokalemia Right leg hematoma status post incision and drainage Hospital course: 88-year-old male who was admitted for cellulitis of the right leg with swelling and edema and erythema He was treated with IV antibiotics and his cellulitis improved He was complaining of dysphagia and therefore we consulted GI for possible endoscopy however because of the findings of his severe aortic stenosis and severe pulmonary hypertension he was not a good candidate for it and therefore it was not done He did okay afterwards and he was swallowing fine Even though the cellulitis improved with IV antibiotics but he continued to have swelling in his right leg anteriorly by the tibia in the middle of the leg and therefore we consulted general surgery who recommended to consult ortho instead We did a CT scan of the leg and an MRI which showed possible hematoma We consulted Orthopedic surgery who recommended incision and drainage and it was done successfully with no complications Afterwards he continued to have the IV antibiotics and he did well and the swelling improved and he is ambulating now with physical therapy however he is still very weak and therefore the recommendation is for him to go to a alf facility He will be discharged to SNF today for rehab Condition at Discharge: Stable Final Diagnosis/Problems List Right lower extremity cellulitis Bilateral lower extremity edema rule out heart failure Hypertension History of coronary artery disease Rule out heart failure Hard of hearing Hypokalemia Acute on chronic diastolic heart failure Severe pulmonary hypertension Severe critical aortic stenosisRight tibia hematoma/mass collection s/p evacuation Discharge Disposition: Detention Facility SNF Discharge Will this Physician continue t: No Discharge Instruct/Medications Diet: Cardiac 2g Na,low cholest Activity: No Restrictions, As Tolerated Follow Up/Referral: SNF Medications: See Med Rec Discharge Statement: "Patient was advised to return to the ER or call 911 if any headaches, dizziness, shortness of breath, chest pain, abdominal pain, bleeding, fevers, or worsening of medical condition. Patient was counseled about treatment plan, medications, possible side effects, patientverbalized understanding. All questions were answered to the best of my ability. This discharge took greater then 30 minutes in planning, reviewing documentation, counseling the patient, and discussing with other team members." ASSESSMENT ASSESSMENT Assessment Right lower extremity cellulitis Bilateral lower extremity edema rule out heart failure Hypertension History of coronary artery disease Rule out heart failure Hard of hearing Hypokalemia Acute on chronic diastolic heart failure Severe pulmonary hypertension Severe critical aortic stenosisRight tibia hematoma/mass collection s/p evacuation Date of Service: July 08, 2024 Billing Provider: CHONG CANADA MD Common Visit Codes: NOT BILLABLE CHONG CANADA MD July 08, 2024 11:34
[2024-07-08] MEDS: VANCOMYCIN 750mg/150ml 150 ML IV SCH (15:32)
== END 2024-07-08 20:00 | DRG 853 ==
LOC: EDBD 08:26 → ER 08:26 → OVERFLOW 11:12 → WEST WING 15:32 → TELE-WESTW 06-23 20:10 → WEST WING 07-06 16:58
PROVIDERS: ADMIT Internal Medicine Geriatric Medicine; ATTEND Internal Medicine Geriatric Medicine
PROC: 0JCN0ZZ Extirpation of Matter from Right Lower Leg Subcutaneous Tissue and Fascia, Open Approach (ICD-10-PCS; 2024-07-04)
PROC: 0JDN0ZZ Extraction of Right Lower Leg Subcutaneous Tissue and Fascia, Open Approach (ICD-10-PCS; principal; 2024-07-04 13:08)
DX: A41.9 Sepsis, unspecified organism (principal); I21.4 Non-ST elevation (NSTEMI) myocardial infarction; I50.33 Acute on chronic diastolic (congestive) heart failure; L03.115 Cellulitis of right lower limb; I16.1 Hypertensive emergency; E83.52 Hypercalcemia; E83.42 Hypomagnesemia; E87.6 Hypokalemia; I11.0 Hypertensive heart disease with heart failure; I35.0 Nonrheumatic aortic (valve) stenosis; I27.20 Pulmonary hypertension, unspecified; I25.10 Atherosclerotic heart disease of native coronary artery without angina pectoris; S80.11XA Contusion of right lower leg, initial encounter; M10.9 Gout, unspecified; G62.9 Polyneuropathy, unspecified; R13.10 Dysphagia, unspecified; Z91.199 Patient's noncompliance with other medical treatment and regimen due to unspecified reason; Z79.899 Other long term (current) drug therapy; Z79.2 Long term (current) use of antibiotics; Z95.5 Presence of coronary angioplasty implant and graft; W07.XXXA Fall from chair, initial encounter; Y93.89 Activity, other specified; Y92.89 Other specified places as the place of occurrence of the external cause; Y99.8 Other external cause status
CPT/HCPCS: 36415; 71045; 71250; 73090; 73700; 73718; 74176; 80048; 80053; 80061; 80202; 81001; 82565; 83605; 83735; 83880; 84484; 85025; 85610; 85652; 85730; 86141; 86850; 86900; 86901; 87040; 87070; 87075; 87077; 87186; 87205; 93005; 93306; 93926; 93970; 94640; 96365; 96375; 97110; 97116; 97163; 97530; 99291; G0378; J1100; J2250; J2405; J2470; J2704; J3490

== ENCOUNTER 2024-07-21 02:24 | Inpatient (IN) | payer OTHER ==
[~2024-07-21] VITALS: Ht 175.3 cm; Wt 82.0 kg
[~2024-07-21 02:24] MED LIST changes: +ALLO100T PO; +ATOR40TA52 PO; +BIMA0.01 EACHEYE; -HYDR-4902 PO; +MET50T PO; +VALS1TAB59 PO
--- NOTE | 2024-07-21 02:50 | ED.PDOC ---
History of Present Illness HPI Comments 88-year-old male came to ER for abdominal pain. Patient was discharged last July 08, diagnosed with 1. Right lower extremity cellulitis, 2. Hypertension, 3. History of coronary artery disease, 4. Acute on chronic diastolic heart failure, 5. Severe pulmonary hypertension, 6. Severe critical aortic stenosis. Patient coming in for generalized weakness and abdominal pain, states he has no appetite to eat and having diarrheal episodes as well. Chief Complaint: Abdominal Pain Time Seen by MD: 02:50 Reviewed Notes: Nurses Notes Allergies: Coded Allergies: NO KNOWN ALLERGIES (Unverified , 02/15/23) Home Meds Active Scripts Bimatoprost (Lumigan) 0.01 % Zarina, 1 DROP EACHEYE QPM, #7.5 ML 3 Refills Prov:CHONG CANADA MD 07/01/24 Cephalexin (KEFLEX CAPSULE) 250 Mg Cp, 1 CAP PO QID for 7 Days, #28 CAP Prov:JALYN MIDDLETON PAC 02/16/23 Reported Medications Hydrochlorothiazide W/Triamter (Triamterene/Hydrochloroth) 1 Cap Cap, 1 TAB PO DAILY for 90 Days, #90 [TRIAMTERENE/HCTZ 37.5/25 MG] 07/05/24 Enalapril Maleate (Enalapril Maleate) 10 Mg Tab, 1 TAB PO DAILY for 90 Days, #90 07/05/24 Hydrocodone-Acetaminophen (Hydrocodone Bitartrate/AC 10-325 mg) 1 Tab Tab, 1 TAB PO Q6HR PRN PRN for PAIN SCALE 7 THRU 10 for 30 Days, #120 06/22/24 Bimatoprost (Lumigan) 0.01 % Zarina, 1 DROP EACHEYE QPM, #7.5 ML 3 Refills 06/22/24 Allopurinol (Allopurinol) 100 Mg Tab, 1 TAB PO DAILY 06/22/24 Atorvastatin Calcium (ATORVASTATIN CALCIUM) 40 Mg Tab, 1 TAB PO DAILY 06/22/24 Valsartan (Valsartan) 320 Mg Tab, 1 TAB PO DAILY 06/22/24 Metoprolol Tartrate (LOPRESSOR TABLET) 50 Mg Tb, 1 TAB PO BID 06/22/24 Information Source: Patient Mode of Arrival: EMS Severity: Moderate Timing: Days Duration: Intermittent Past Medical History PAST MEDICAL HISTORY: HTN, ID Family History Family History: Reviewed,noncontributory to illness, Unknown Social History Smoker: Non-Smoker Alcohol: Denies ETOH Use Drugs: Denies Drug Use Lives In: Home Physical Exam General Appearance: Moderate Distress, Normal HEENT: Normal ENT Inspection, Pharynx Normal, TMs Normal Neck: Full Range of Motion, Non-Tender, Normal, Normal Inspection Respiratory: Chest Non-Tender, Lungs Clear, No Accessory Muscle Use, No Respiratory Distress, Normal Breath Sounds Cardiovascular: No Edema, No JVD, No Murmur, No Gallop, Normal Peripheral Pulses, Regular Rate/Rhythm Breast Exam: Deferred Gastrointestinal: Tenderness, Other Genitalia: Deferred Pelvic: Deferred Rectal: Deferred Extremities: No calf tenderness, Normal capillary refill, Normal inspection, Normal range of motion, Non-tender, No pedal edema Musculoskeletal : Apperance: Normal Neurologic: Alert, cork tile floor layer II-XII nml as Tested, No Motor Deficits, Normal Affect, Normal Mood, No Sensory Deficits Cerebellar Function: Normal Reflexes: Normal Skin: Dry, Normal Color, Warm Lymphatic: No Adenopathy Was a procedure done? Was a procedure done?: No Differential Dx Considerations may include: Differential diagnosis includes but is not limited to: appendicitis, divertic ulitis, colitis, urinary tract infection, ureteral colic / stone, bowel obstruction, and others X-Ray, Labs, Meds, VS Vital Signs Date Time Temp Pulse Resp B/P (MAP) Pulse Ox O2 Delivery O2 Flow Rate FiO2 07/21/24 03:43 151/109 07/21/24 02:32 98.0 84 16 192/67 (108) 100 98.0 Lab Test 07/21/24 05:08 07/21/24 03:00 Range/Units Troponin I High Sensitivity Pending 22 </=54 ng/L White Blood Count 10.1 4.4-10.8 10^3/uL Red Blood Count 4.81 4.5-5.90 10^6/uL Hemoglobin 13.8 13.5-17.5 g/dL Hematocrit 41.1 41.0-53.0 % Mean Corpuscular Volume 85.6 80.0-100.0 fL Mean Corpuscular Hemoglobin 28.7 28.0-32.0 pg Mean Corpuscular Hemoglobin Concent 33.6 32.0-36.0 g/dL Red Cell Distribution Width 14.8 H 11.8-14.3 % Platelet Count 241 140-450 10^3/uL Mean Platelet Volume 8.8 6.9-10.8 fL Neutrophils (%) (Auto) 81.1 H 37.0-80.0 % Lymphocytes (%) (Auto) 11.0 10.0-50.0 % Monocytes (%) (Auto) 5.8 0.0-12.0 % Eosinophils (%) (Auto) 1.5 0.0-7.0 % Basophils (%) (Auto) 0.6 0.0-2.0 % Neutrophils # (Auto) 8.2 1.6-8.6 10 ^3/uL Lymphocytes # (Auto) 1.1 0.4-5.4 10 ^3/uL Monocytes # (Auto) 0.6 0-1.3 10 ^3/uL Eosinophils # (Auto) 0.1 0-0.8 10 ^3/uL Basophils # (Auto) 0.1 0-0.2 10 ^3/uL Nucleated Red Blood Cells 0.0 % Sodium Level 138 136-145 mmol/L Potassium Level 4.6 3.5-5.1 mmol/L Chloride Level 104 98-107 mmol/L Carbon Dioxide Level 25 20-31 mmol/L Anion Gap 9 5-15 Blood Urea Nitrogen 29 H 9-23 mg/dL Creatinine 1.39 H 0.700-1.30 mg/dL Glomerular Filtration Rate Calc 48 >90 mL/min BUN/Creatinine Ratio 20.9 H 10.0-20.0 Serum Glucose 122 H 74-106 mg/dL Calcium Level 11.3 H 8.7-10.4 mg/dL Total Bilirubin 0.8 0.2-1.0 mg/dL Aspartate Amino Transferase (AST) 25 13-40 U/L Alanine Aminotransferase (ALT) 35 7-40 U/L Alkaline Phosphatase 113 46-116 U/L B-Type Natriuretic Peptide 130.63 0-100 pg/mL Total Protein 7.4 5.7-8.2 g/dL Albumin 4.7 3.2-4.8 g/dL Lipase 45 12-53 U/L Current Medications Medications (Trade) Dose Ordered Sig/Armando Route Start Time Stop Time Status Last Admin Sodium Chloride 1,000 ml @ 1,000 mls/hr Q1H ONCE IVB 07/21/24 02:45 07/21/24 03:44 DC 07/21/24 03:44 Clonidine HCl (Catapres Tablet) 0.1 mg ONCE ONCE PO 07/21/24 03:15 07/21/24 03:16 DC 07/21/24 03:43 Time of 1ST Reevaluation: 05:00 Reevaluation 1ST: Unchanged Patient Education/Counseling: Diagnosis, Treatment Family Education/Counseling: No Family Present Departure 1 Departure Time of Disposition: 05:57 Impression: Primary Impression: Inguinal hernia Additional Impressions: Dehydration Acute renal injury Intractable abdominal pain Disposition: ADMITTED INPATIENT Condition: Guarded Discharged With: Self Comments Generalized Weakness and Abdominal Pain Chief Complaint: Generalized weakness and abdominal pain History of Present Illness: 88-year-old male presents to the ED with a 2-day history of generalized weakness and abdominal pain. Patient reports associated symptoms of diarrhea, decreased appetite, and poor oral intake. His medical history is significant for congestive heart failure, coronary artery disease, and hypertension. Initial laboratory studies reveal acute kidney injury. Review of Systems: Constitutional: Positive for generalized weakness, decreased appetite Gastrointestinal: Positive for abdominal pain, diarrhea All other systems reviewed and negative Past Medical History: 1. Congestive Heart Failure 2. Coronary Artery Disease 3. Hypertension Lab Results: 1. Creatinine: 1.39 (elevated) 2. Troponin: 22 (normal) 3. BNP: 130 (normal) 4. WBC: 10.1 (normal) 5. CBC: Otherwise unremarkable Imaging and Other Relevant Results: CT Abdomen/Pelvis: - Large right inguinal hernia containing fat and bowel segments - Gallbladder distension with sludge - Right renal atrophy with cortical scarring - Diverticulosis - Enlarged prostate Chest X-ray: - No acute pathology Medical Decision Making: Summary Statement: 88-year-old male with multiple comorbidities presenting with generalized weakness, abdominal pain, and acute kidney injury likely due to dehydration. Problem List: 1. Acute kidney injury 2. Dehydration 3. Abdominal pain 4. Right inguinal hernia 5. Gallbladder sludge Differential Diagnosis: 1. Dehydration 2. Acute gastroenteritis 3. Bowel obstruction 4. Hernia complications 5. Cholecystitis ED Course: Patient received IV fluid hydration. Given presentation and findings, admission was deemed necessary for further management. Assessment and Plan: 1. Acute Kidney Injury/Dehydration: - Likely pre-renal due to poor oral intake and diarrhea - Continue IV fluid resuscitation - Monitor urine output and serial creatinine levels 2. Abdominal Pain: - CT showing multiple potential contributing factors including hernia and gallbladder findings - Continue supportive care and monitor for worsening 3. Disposition: - Admit to medical service for continued management and monitoring Billing Information: ICD-10: N17.9 - Acute kidney failure, unspecified ICD-10: R53.1 - Weakness ICD-10: R10.9 - Unspecified abdominal pain ICD-10: E86.0 - Dehydration ICD-10: K40.90 - Unilateral inguinal hernia, without obstruction or gangrene, not specified as recurrent Critical Care Note Critical Care Time?: No Stability Stability form required: No Heart Score Heart Score: Heart Score Response (Comments) Value History N/A 0 EKG N/A 0 Age N/A 0 Risk Factors N/A 0 Troponin N/A 0 Total 0 I personally scribed for ERICK GREENE MD ([email or web address]) on 07/21/24 at 02:50. Electronically submitted by Byron Miller ([email or web address]). ERICK GREENE MD Jul 21, 2024 02:50
[2024-07-21 03:29] LABS: Basophils # (auto) 0.1 10 ^3/uL (0-0.2); Basophils % (auto) 0.6 % (0.0-2.0); Eosinophils # (auto) 0.1 10 ^3/uL (0-0.8); Eosinophils % (auto) 1.5 % (0.0-7.0); Hematocrit 41.1 % (41.0-53.0); Hemoglobin 13.8 g/dL (13.5-17.5); Lymphocytes # (auto) 1.1 10 ^3/uL (0.4-5.4); Mean Corpuscular Hemoglobin 28.7 pg (28.0-32.0); Mean Corpuscular Hgb Conc. 33.6 g/dL (32.0-36.0); Mean Corpuscular Volume 85.6 fL (80.0-100.0); Monocytes # (auto) 0.6 10 ^3/uL (0-1.3); Monocytes % (auto) 5.8 % (0.0-12.0); Neutrophils # (auto) 8.2 10 ^3/uL (1.6-8.6); Neutrophils % (auto) 81.1 % (37.0-80.0); Platelet Count (auto) 241 10^3/uL (140-450); Red Blood Cells 4.81 10^6/uL (4.5-5.90); Red Cell Distribution Width 14.8 % (11.8-14.3); White Blood Cell 10.1 10^3/uL (4.4-10.8)
[2024-07-21 03:34] LABS: Alanine Aminotransferase 35 U/L (7-40); Albumin 4.7 g/dL (3.2-4.8); Alkaline Phosphatase 113 U/L (46-116); Anion Gap 9 (5-15); Aspartate Aminotransferase 25 U/L (13-40); BUN/Creatinine Ratio 20.9 (10.0-20.0); Carbon Dioxide 25 mmol/L (20-31); Chloride 104 mmol/L (98-107); Lipase 45 U/L (12-53); Potassium 4.6 mmol/L (3.5-5.1); Sodium 138 mmol/L (136-145); Total Protein 7.4 g/dL (5.7-8.2)
[2024-07-21 03:35] LABS: Bilirubin, Total 0.8 mg/dL (0.2-1.0)
[2024-07-21] MEDS: cloNIDine HCL 0.1 MG TAB PO ONE (03:43)
[2024-07-21] MEDS: SODIUM CHLORIDE 0.9% 1,000 ML IVB ONE (03:44)
[2024-07-21 03:50] LABS: Blood Urea Nitrogen 29 mg/dL (9-23); Calcium 11.3 mg/dL (8.7-10.4); Glucose 122 mg/dL (74-106)
[2024-07-21] MEDS: IOHEXOL 300 MG/ML 100ML BOTTLE IJ ONE (04:13)
--- NOTE | 2024-07-21 04:48 | DVH ---
CHEST RADIOGRAPH Indication: sob Technique: Single frontal view of the chest was obtained COMPARISON: XY CHEST XRAY 1 VIEW on DOS: 06/22/24 FINDINGS: Lines and Tubes: None Lungs: Clear Pleura: No effusion. No pneumothorax. Cardiomediastinal contours: Unremarkable Bones: Unremarkable IMPRESSION: 1. No acute disease.
--- NOTE | 2024-07-21 05:36 | DVH ---
Exam: CT CT AB PEL WITH IV CON ONLY History: abd pain COMPARISON: None Technique: Multidetector spiral CT of the abdomen and pelvis was performed from lung bases to pubic s ymphysis. Intravenous contrast was administered during this examination. Portal venous imaging was o btained. Axial, coronal and sagittal multiplanar reformats were performed by the technologist on a [employer] workstation. Radiation Dose : 1. Abdomen/Pelvis: CTDIvol 13.85 mGy, DLP 855.8 mGy*cm. CONTRAST: Type of contrast: Omniscan 300 Contrast injected: 100 ml Findings: Lung Bases: No acute or significant lung base finding. Normal heart size. No pleural or pericardial effusion. Liver: The liver is normal in size. No focal lesions. Normal hepatic vascular enhancement. Gallbladder and Biliary Tree: Gallbladder distension and sludge. Spleen: Unremarkable Pancreas: The pancreas is normal in appearance without focal lesions or abnormal enhancement. Adrenal Glands: Unremarkable Kidneys: Severe right renal atrophy and scarring. Moderate left renal multifocal cortical scarring. Left interpolar renal cortical cyst measures 1.5 cm. No evidence of hydronephrosis or nephrolithiasi s. Bladder: Unremarkable Bowel: The stomach is grossly normal in appearance. Small bowel and colon are normal in caliber and d istribution. Diverticula throughout the sigmoid colon without CT evidence of acute diverticulitis. Th e appendix is not visualized; however, no secondary findings of acute appendicitis identified. Ascites: Absent Lymphadenopathy: No mesenteric, retroperitoneal or periportal lymphadenopathy. Abdominal Wall and Mesentery: Large right inguinal hernia contains fat and nonobstructed segments of bowel. Vasculature: The visualized abdominal aorta is normal in size and caliber. Atherosclerotic vascular c alcifications. Abdominal and pelvic vessels demonstrate normal enhancement. Pelvic Organs: The prostate is enlarged, measuring 6.0 cm transverse. Musculoskeletal: No aggressive focal bony lesions, acute fractures or dislocation. IMPRESSION: 1. No acute abdominal or pelvic finding. 2. Large right inguinal hernia containing fat and segments of bowel without evidence of obstruction. 3. Gallbladder distention and sludge. 4. Severe right renal atrophy and multifocal cortical scarring. 5. Diverticulosis coli without CT evidence of acute diverticulitis. 6. Prostatomegaly. Radiation optimization: All CT scans at this facility use at least one of these dose optimization lyndon hniques: automated exposure control mA and/or kV adjustment per patient size (includes targeted exam s where dose is matched to clinical indication) or iterative reconstruction.
[2024-07-21 05:57] LABS: Urine Bacteria None Seen /hpf (None Seen)
[2024-07-21 06:10] LABS: Urine Blood Negative /uL (Negative); Urine Clarity Clear (Clear); Urine Color Colorless (Yellow); Urine Protein, UAD Negative (Negative); Urine Specific Gravity 1.018 (1.001-1.035); Urine Squamous Epithelial Cell FEW /hpf (<5); Urine Urobilinogen Normal (Negative); Urine WBC 17 /HPF (0-3); Urine pH 6.5 (5.0-9.0)
[2024-07-21 06:17] VITALS: RESP 14; O2SAT 95
--- NOTE | 2024-07-21 06:49 | ECG ---
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
[2024-07-21] MEDS ORDERED: ACETAMINOPHEN 325 MG TAB PO PRN (08:15)
[2024-07-21] MEDS ORDERED: MORPHINE SULFATE INJ 2 MG/ml SYRG IV PRN (08:15)
--- NOTE | 2024-07-21 08:21 | DVHHP2 ---
History of Present Illness Reason for Visit: Abdominal pain History of Present Illness Joshua Cordova is an 88-year-old male with past medical history of hypertension, CHF, peripheral neuropathy, hard of hearing, and pulmonary hypertension, who came to the hospital due to abdominal pain. Patient states the pain began a couple days ago. The pain is located in the epigastric region, radiating to his right, described as a sharp pain. He states he has had a decreased appetite for the last couple of days as well. Patient was recently admitted for cellulitis of right lower extremity. He completed his course of antibiotics. Right leg continues to have mild edema, and redness. 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 (peripheral neuropathy) Musculoskeletal: Other Past Surgical History: Appendectomy, Other (PTCA with cardiac stent placed 2011) Smoke: No ALCOHOL: none Drugs: None Lives: Friends Domestic Violence: Neg Review of Systems Constitutional: No: Fever, Chills, Sweats, Weakness, Malaise, Other Eyes: No: Pain, Vision change, Conjunctivae inflammation, Eyelid inflammation, Other, Redness ENT: No: Ear pain, Ear discharge, Nose pain, Nose discharge, Nose congestion, Mouth pain, Mouth swelling, Throat pain, Throat swelling, Other Respiratory: No: Cough, Dry, Shortness of breath, SOB with excertion, Wheezing, Hemoptysis, Pleuritic Pain, Sputum, Wheezing, Other Cardiovascular: No: Chest Pain, Palpitations, Orthopnea, Paroxysmal Noc. Dyspnea, Edema, Lt Headedness, Other Gastrointestinal: Nausea, Abdominal Pain; No: Vomiting, Diarrhea, Constipation, Melena, Hematochezia, Other Genitourinary: No Dysuria, No Frequency, No Incontinence, No Hematuria, No Re tention, No Other Musculoskeletal: No: other, neck pain, shoulder pain, arm pain, back pain, hand pain, leg pain, foot pain Skin: No: Rash, Lesions, Jaundice, Bruising, Other Neurological: No: Weakness, Numbness, Incoordination, Change in speech, Confusion, Seizures, Other Allergies: Coded Allergies: NO KNOWN ALLERGIES (Unverified , 02/15/23) Medications Current Medications Medications Dose Ordered Sig/Armando Route Start Time Stop Time Status Last Admin Dose Admin Acetaminophen/ Hydrocodone Bitart 1 tab Q4HP PRN PO 07/21/24 08:15 Ondansetron HCl 4 mg Q4HP PRN IV 07/21/24 08:15 Docusate Sodium 100 mg BIDPRN PRN PO 07/21/24 08:15 Acetaminophen 650 mg Q6HP PRN PO 07/21/24 08:15 Morphine Sulfate 2 mg Q4HPRN PRN IV 07/21/24 08:15 Exam Vital Signs Vital Signs Date Time Temp Pulse Resp B/P (MAP) Pulse Ox O2 Delivery O2 Flow Rate FiO2 07/21/24 08:09 71 07/21/24 07:38 Room Air* 0 21 07/21/24 07:00 15 175/60 (98) 94 07/21/24 06:14 97.9 97.9 General Appearance: Alert, Oriented X3, Cooperative, mild distress HEENT: Atraumatic, PERRLA Respiratory: Clear to auscultation, Normal air movement Cardiovascular: Regular rate, Normal S1, Normal S2 Abdominal: Normal bowel sounds, Soft, Other (epigastric pain) Extremities: No clubbing, No cyanosis, Other (right leg edema and redness) Skin: No rashes, No breakdown, No significant lesion Neuro: Normal gait, Normal speech, Strength at 5/5 X4 ext, Normal tone Psych/Mental Status: Mental status NL, Mood NL Labs/Xrays Labs Test 07/21/24 06:33 07/21/24 05:25 07/21/24 03:00 Range/Units Troponin I High Sensitivity 25 </=54 ng/L Urine Color Colorless Yellow Urine Clarity Clear Clear Urine pH 6.5 5.0-9.0 Urine Specific [place] 1.018 1.001-1.035 Urine Protein Negative Negative Urine Ketones Negative Negative Urine Blood Negative Negative /uL Urine Nitrite Negative Negative Urine Bilirubin Negative Negative Urine Urobilinogen Normal Negative mg/dL Urine Leukocyte Esterase 2+ Negative /uL Urine RBC 1 0 - 3 /hpf Urine Microscopic WBC 17 H 0-3 /HPF Urine Squamous Epithelial Cells Few <5 /hpf Urine Transitional Epithelial Cells Few <2 /hpf Urine Bacteria None seen None Seen /hpf Urine Glucose Normal Normal mg/dL White Blood Count 10.1 4.4-10.8 10^3/uL Red Blood Count 4.81 4.5-5.90 10^6/uL Hemoglobin 13.8 13.5-17.5 g/dL Hematocrit 41.1 41.0-53.0 % Mean Corpuscular Volume 85.6 80.0-100.0 fL Mean Corpuscular Hemoglobin 28.7 28.0-32.0 pg Mean Corpuscular Hemoglobin Concent 33.6 32.0-36.0 g/dL Red Cell Distribution Width 14.8 H 11.8-14.3 % Platelet Count 241 140-450 10^3/uL Mean Platelet Volume 8.8 6.9-10.8 fL Neutrophils (%) (Auto) 81.1 H 37.0-80.0 % Lymphocytes (%) (Auto) 11.0 10.0-50.0 % Monocytes (%) (Auto) 5.8 0.0-12.0 % Eosinophils (%) (Auto) 1.5 0.0-7.0 % Basophils (%) (Auto) 0.6 0.0-2.0 % Neutrophils # (Auto) 8.2 1.6-8.6 10 ^3/uL Lymphocytes # (Auto) 1.1 0.4-5.4 10 ^3/uL Monocytes # (Auto) 0.6 0-1.3 10 ^3/uL Eosinophils # (Auto) 0.1 0-0.8 10 ^3/uL Basophils # (Auto) 0.1 0-0.2 10 ^3/uL Nucleated Red Blood Cells 0.0 % Sodium Level 138 136-145 mmol/L Potassium Level 4.6 3.5-5.1 mmol/L Chloride Level 104 98-107 mmol/L Carbon Dioxide Level 25 20-31 mmol/L Anion Gap 9 5-15 Blood Urea Nitrogen 29 H 9-23 mg/dL Creatinine 1.39 H 0.700-1.30 mg/dL Glomerular Filtration Rate Calc 48 >90 mL/min BUN/Creatinine Ratio 20.9 H 10.0-20.0 Serum Glucose 122 H 74-106 mg/dL Calcium Level 11.3 H 8.7-10.4 mg/dL Total Bilirubin 0.8 0.2-1.0 mg/dL Aspartate Amino Transferase (AST) 25 13-40 U/L Alanine Aminotransferase (ALT) 35 7-40 U/L Alkaline Phosphatase 113 46-116 U/L B-Type Natriuretic Peptide 130.63 0-100 pg/mL Total Protein 7.4 5.7-8.2 g/dL Albumin 4.7 3.2-4.8 g/dL Lipase 45 12-53 U/L Exam: CT CT AB PEL WITH IV CON ONLY Findings: Lung Bases: No acute or significant lung base finding. Normal heart size. No pleural or pericardial effusion. Liver: The liver is normal in size. No focal lesions. Normal hepatic vascular enhancement. Gallbladder and Biliary Tree: Gallbladder distension and sludge. Spleen: Unremarkable Pancreas: The pancreas is normal in appearance without focal lesions or abnormal enhancement. Adrenal Glands: Unremarkable Kidneys: Severe right renal atrophy and scarring. Moderate left renal multifocal cortical scarring. Left interpolar renal cortical cyst measures 1.5 cm. No evidence of hydronephrosis or nephrolithiasis. Bladder: Unremarkable Bowel: The stomach is grossly normal in appearance. Small bowel and colon are normal in caliber and distribution. Diverticula throughout the sigmoid colon without CT evidence of acute diverticulitis. The appendix is not visualized; however, no secondary findings of acute appendicitis identified. Ascites: Absent Lymphadenopathy: No mesenteric, retroperitoneal or periportal lymphadenopathy. Abdominal Wall and Mesentery: Large right inguinal hernia contains fat and nonobstructed segments of bowel. Vasculature: The visualized abdominal aorta is normal in size and caliber. Atherosclerotic vascular calcifications. Abdominal and pelvic vessels demonstrate normal enhancement. Pelvic Organs: The prostate is enlarged, measuring 6.0 cm transverse. Musculoskeletal: No aggressive focal bony lesions, acute fractures or dislocation. IMPRESSION: 1. No acute abdominal or pelvic finding. 2. Large right inguinal hernia containing fat and segments of bowel without evidence of obstruction. 3. Gallbladder distention and sludge. 4. Severe right renal atrophy and multifocal cortical scarring. 5. Diverticulosis coli without CT evidence of acute diverticulitis. 6. Prostatomegaly. CHEST RADIOGRAPH FINDINGS: Lines and Tubes: None Lungs: Clear Pleura: No effusion. No pneumothorax. Cardiomediastinal contours: Unremarkable Bones: Unremarkable IMPRESSION: 1. No acute disease. INDICATION: Pain, Gallbladder sludge FINDINGS: The liver is homogenous in echogenicity. The liver measures 16.6 cm. No intrahepatic biliary ductal dilatation is noted. The gallbladder wall measures 0.2 cm and is unremarkable. Gallbladder is dist ended. There is sludge in the gallbladder. The common duct measures 0.5 cm and is unremarkable. No pericholecystic fluid is noted. Negative sonographic castillo's sign. The right kidney is not visualized. No hydronephrosis. The left kidney measures 11.6 cm. No hydronephrosis. The spleen measures 13.0 cm, within normal limits. The echogenicity is within normal limits. The pancreas is not well visualized due to obscuration from bowel gas. The visualized portions of the IVC and aorta are grossly unremarkable. IMPRESSION: 1. Distended gallbladder containing sludge. No gallstones or findings to suggest acute cholecystitis. 2. Right kidney not visualized. Left kidney unremarkable. Assessment/Plan Assessment/Plan Assessment: Dehydration, Acute kidney injury, Intractable abdominal pain, Gallbladder sludge, Inguinal hernia, Plan: Admit to Med-Surg, Abdominal ultrasound, IV hydration, Pain management, Antiemetics, Home medications reconciled, Plan discussed with: Patient My Orders Orders - KATERINE MICHELE Procedure Category Date Status Time Admit ADMIT 07/21/24 Transmitted 08:14 Code Status CODE 07/21/24 Transmitted 08:14 Hydrocodone-Acet PHA 07/21/24 In Process 5/325mg Tab (Sullivan 08:15 Ondansetron Hcl PHA 07/21/24 In Process (Zofran) 08:15 Docusate Sodium PHA 07/21/24 In Process Capsule (Colace 08:15 Complete Blood Count LAB 07/22/24 Verified 04:00 Comprehensive LAB 07/22/24 Verified Metabolic Panel 04:00 Npo (Nothing By DIET 07/21/24 Transmitted Mouth) Diet Breakfast Condition: Serious HEATH 07/21/24 In Process 08:14 Acetaminophen Tablet PHA 07/21/24 In Process (Tylenol Tablet) 08:15 Morphine Sulfate PHA 07/21/24 In Process Injection 08:15 Abdomen Complete US 07/21/24 Logged Sonogram 08:16 Date of Service: Jul 21, 2024 Billing Provider: KATERINE MICHELE Common Visit Codes: [id number] INP/OBS CARE (MOD) KATERINE MICHELE Jul 21, 2024 08:21
--- NOTE | 2024-07-21 09:46 | DVH ---
INDICATION: Pain, Gallbladder sludge TECHNIQUE: Multiple real-time sonographic images of the abdomen were obtained. COMPARISON: CT scan of the abdomen pelvis dated 07/21/2024. FINDINGS: The liver is homogenous in echogenicity. The liver measures 16.6 cm. No intrahepatic bilia ry ductal dilatation is noted. The gallbladder wall measures 0.2 cm and is unremarkable. Gallbladder is distended. There is sludge in the gallbladder. The common duct measures 0.5 cm and is unremarkable. No pericholecystic fluid i s noted. Negative sonographic castillo's sign. The right kidney is not visualized. No hydronephrosis. The left kidney measures 11.6 cm. No hydronep hrosis. The spleen measures 13.0 cm, within normal limits. The echogenicity is within normal limits. The pancreas is not well visualized due to obscuration from bowel gas. The visualized portions of the IVC and aorta are grossly unremarkable. IMPRESSION: 1. Distended gallbladder containing sludge. No gallstones or findings to suggest acute cholecystitis . 2. Right kidney not visualized. Left kidney unremarkable.
[2024-07-21 11:59] VITALS: BP 147/74; PULSE 71; RESP 18; TEMP 97.4; O2SAT 93
[2024-07-21] MEDS: HYDROcodone-ACET 5/325MG TAB PO PRN (16:36)
[2024-07-21] MEDS: SODIUM CHLORIDE 0.9% 1,000 ML IV ONE (16:50)
[2024-07-21 17:00] VITALS: BP 127/58; PULSE 61; RESP 20; TEMP 97.3; O2SAT 94
[2024-07-21 21:00] VITALS: BP 148/51; PULSE 57; RESP 19; TEMP 97.5; O2SAT 96
[2024-07-22] VITALS (8 sets, daily range): BP systolic 161–192; BP diastolic 53–72; PULSE 56–76; RESP 18–19; TEMP 97.6–99.1; O2SAT 95–97
[2024-07-22 06:19] LABS: Basophils # (auto) 0.1 10 ^3/uL (0-0.2); Basophils % (auto) 1.5 % (0.0-2.0); Eosinophils # (auto) 0.2 10 ^3/uL (0-0.8); Eosinophils % (auto) 3.5 % (0.0-7.0); Hematocrit 36.1 % (41.0-53.0); Hemoglobin 12.1 g/dL (13.5-17.5); Lymphocytes # (auto) 1.1 10 ^3/uL (0.4-5.4); Lymphocytes % (auto) 17.1 % (10.0-50.0); Mean Corpuscular Hemoglobin 28.8 pg (28.0-32.0); Mean Corpuscular Hgb Conc. 33.7 g/dL (32.0-36.0); Mean Corpuscular Volume 85.5 fL (80.0-100.0); Monocytes # (auto) 0.5 10 ^3/uL (0-1.3); Neutrophils # (auto) 4.6 10 ^3/uL (1.6-8.6); Neutrophils % (auto) 69.9 % (37.0-80.0); Platelet Count (auto) 195 10^3/uL (140-450); Red Blood Cells 4.22 10^6/uL (4.5-5.90); White Blood Cell 6.6 10^3/uL (4.4-10.8)
[2024-07-22 06:32] LABS: Alanine Aminotransferase 25 U/L (7-40); Alkaline Phosphatase 90 U/L (46-116); Anion Gap 8 (5-15); BUN/Creatinine Ratio 17.6 (10.0-20.0); Carbon Dioxide 25 mmol/L (20-31); Potassium 3.8 mmol/L (3.5-5.1); Sodium 143 mmol/L (136-145); Total Protein 5.8 g/dL (5.7-8.2)
[2024-07-22 06:33] LABS: Albumin 3.7 g/dL (3.2-4.8); Aspartate Aminotransferase 18 U/L (13-40); Bilirubin, Total 0.6 mg/dL (0.2-1.0)
[2024-07-22 06:38] LABS: Blood Urea Nitrogen 23 mg/dL (9-23); Calcium 10.6 mg/dL (8.7-10.4); Chloride 110 mmol/L (98-107); Glucose 124 mg/dL (74-106)
[2024-07-22] MEDS: hydrALAZINE HCL 20 MG/ML VL IV ONE (13:16)
--- NOTE | 2024-07-22 14:14 | DVHPN2 ---
Subjective 88-year-old male was admitted for abdominal pain for few days He was here few weeks ago for a right leg cellulitis and hematoma requiring incision and drainage of the hematoma and then because of weakness he went to [facility] for rehab and then he went home After he went home he was having this abdominal pain especially after eating Evaluation here showed possible gallbladder disease and therefore he was admitted Currently he says there is no abdominal pain, he is asymptomatic No nausea no vomiting, he is hungry and wants to eat Changes from previous H/P or p: Changes Eyes: No Pain, No Vision change, No Conjunctivae inflammation, No Eyelid inflammation, No Other, No Redness ENT: No Ear pain, No Ear discharge, No Nose pain, No Nose discharge, No Nose congestion, No Mouth pain, No Mouth swelling, No Throat pain, No Throat swelling, No Other Cardiovascular: No Chest Pain, No Palpitations, No Orthopnea, No Paroxysmal Noc. Dyspnea, No Edema, No Lt Headedness, No Other Respiratory: No Cough, No Dry, No Shortness of breath, No SOB with excertion, No Wheezing, No Hemoptysis, No Pleuritic Pain, No Sputum, No Other Gastrointestinal: Nausea; No Vomiting; Abdominal Pain; No Diarrhea, No Constipation, No Melena, No Hematochezia, No Other Genitourinary: No Dysuria, No Frequency, No Incontinence, No Hematuria, No Retention, No Other Musculoskeletal: No other, No neck pain, No shoulder pain, No arm pain, No back pain, No hand pain, No leg pain, No foot pain Skin: No Rash, No Lesions, No Jaundice, No Bruising, No Other Objective Vitals Vital Signs Date Time Temp Pulse Resp B/P (MAP) Pulse Ox O2 Delivery O2 Flow Rate FiO2 07/22/24 13:16 192/72 07/22/24 08:00 67 18 96 Room Air* 0 21 07/22/24 05:00 97.7 97.7 Intake/Output Intake and Output 07/22/24 07:00 Intake Total 490 ml Balance 490 ml Intake Oral 490 ml # Voids 3 General Appearance: Alert, Oriented X3, Cooperative, No acute distress, mild distress Lungs: Clear to auscultation, Normal air movement Cardiovascular: Regular rate, Normal S1, Normal S2 Abdomen: Normal bowel sounds, Soft, No tenderness Extremities: No edema Medications Current Medications Medications Dose Ordered Sig/Armando Route Start Time Stop Time Status Last Admin Dose Admin Acetaminophen/ Hydrocodone Bitart 1 tab Q4HP PRN PO 07/21/24 08:15 07/22/24 10:01 1 TAB Ondansetron HCl 4 mg Q4HP PRN IV 07/21/24 08:15 Docusate Sodium 100 mg BIDPRN PRN PO 07/21/24 08:15 Acetaminophen 650 mg Q6HP PRN PO 07/21/24 08:15 Morphine Sulfate 2 mg Q4HPRN PRN IV 07/21/24 08:15 Cancel Morphine Sulfate 2 mg Q4HPRN PRN IV 07/22/24 13:30 Laboratory Results Laboratory Tests 07/22/24 05:36 Chemistry Test 07/22/24 05:36 Albumin 3.7 g/dL (3.2-4.8) Calcium Level 10.6 mg/dL (8.7-10.4) H Total Protein 5.8 g/dL (5.7-8.2) LFT Test 07/22/24 05:36 Alanine Aminotransferase (ALT) 25 U/L (7-40) Alkaline Phosphatase 90 U/L (46-116) Aspartate Amino Transferase (AST) 18 U/L (13-40) Total Bilirubin 0.6 mg/dL (0.2-1.0) Urinalysis Test 07/21/24 05:25 Urine Color Colorless (Yellow) Urine Clarity Clear (Clear) Urine pH 6.5 (5.0-9.0) Urine Specific [place] 1.018 (1.001-1.035) Urine Protein Negative (Negative) Urine Ketones Negative (Negative) Urine Blood Negative /uL (Negative) Urine Nitrite Negative (Negative) Urine Bilirubin Negative (Negative) Urine Urobilinogen Normal mg/dL (Negative) Urine Leukocyte Esterase 2+ /uL (Negative) Urine RBC 1 /hpf (0 - 3) Urine Microscopic WBC 17 /HPF (0-3) H Urine Squamous Epithelial Cells Few /hpf (<5) Urine Transitional Epithelial Cells Few /hpf (<2) Urine Bacteria None seen /hpf (None Seen) Urine Glucose Normal mg/dL (Normal) Microbiology Microbiology Date/Time Source Procedure Growth Status 07/21/24 14:48 Nose MRSA Screen - Final Complete Assessment/Plan Assessment/Plan Abdominal pain Gallbladder distention and sludge Rule out cholecystitis Diverticulosis Large right inguinal hernia no obstruction Benign prostatic hypertrophy Recent cellulitis of the right leg and hematoma status post incision and drainage of the hematoma Generalized weakness Hypertension Severe aortic stenosis Severe pulmonary hypertension Diastolic heart failure, chronic Coronary artery disease Hard of hearing Chronic kidney disease Plan Order HIDA scan Resume the home medications including his hypertensive medications and Neurontin Pain management IV fluids Start his diet if the HIDA scan is negative Discussed with the caregiver at the bedside Monitor the patient closely The rest of the management will depend on the hospital course Plan discussed with: Patient My Orders Orders - CHONG CANADA MD Procedure Category Date Status Time Morphine Sulfate PHA 07/22/24 In Process Injection 13:30 Gabapentin Capsule PHA 07/22/24 Verified (Neurontin Capsule) 22:00 Amlodipine Tablet PHA 07/22/24 Verified (Norvasc Tablet) 14:15 Amlodipine Tablet PHA 07/23/24 Verified (Norvasc Tablet) 10:00 Hydralazine Injection PHA 07/22/24 Verified (Apresoline Inject 14:15 Valsartan (Diovan) PHA 07/23/24 Verified 10:00 Valsartan (Diovan) PHA 07/22/24 Verified 14:15 Cholecalciferol PHA 07/23/24 Verified Tablet (Vitamin D3 10:00 Sucralfate Susp PHA 07/22/24 Verified (Carafate Susp) 22:00 Atorvastatin (Lipitor) PHA 07/22/24 Verified 22:00 Clopidogrel Bisulfate PHA 07/22/24 Verified (Plavix) 14:15 Clopidogrel Bisulfate PHA 07/23/24 Verified (Plavix) 10:00 Metoprolol Tartrate PHA 07/22/24 Verified Tablet (Lopressor Ta 22:00 Aspirin Tablet PHA 07/23/24 Verified 10:00 Date of Service: Jul 22, 2024 Billing Provider: CHONG CANADA MD Common Visit Codes: NOT BILLABLE CHONG CANADA MD Jul 22, 2024 14:14
[2024-07-22] MEDS: DOCUSATE SOD 100 MG CAP PO PRN (15:23)
[2024-07-22] MEDS: CLOPIDOGREL BISULFATE 75 MG TAB PO ONE (15:23)
[2024-07-22] MEDS: amLODIPine BESYLATE 5 MG TAB PO ONE (15:23)
[2024-07-22] MEDS: VALSARTAN 80 MG TAB PO ONE (15:24)
[2024-07-22] MEDS: hydrALAZINE HCL 20 MG/ML VL IV PRN (20:06)
[2024-07-22] MEDS: ATORVASTATIN 20 MG TAB PO SCH (21:31)
[2024-07-22] MEDS: SUCRALFATE 1 GM/10 ML ORAL SUSP PO SCH (21:31)
[2024-07-22] MEDS: GABAPENTIN 100 MG CAP PO SCH (21:31)
[2024-07-22] MEDS: METOPROLOL TARTRATE 25 MG TAB PO SCH (21:33)
[2024-07-22] MEDS: ONDANSETRON HCL 4 MG/2 ML VIAL IV PRN (22:02)
[2024-07-22] MEDS: MORPHINE SULFATE 4 MG/ML SYR/VIAL IV PRN (23:01)
[2024-07-23] VITALS (8 sets, daily range): BP systolic 138–161; BP diastolic 48–60; PULSE 57–80; RESP 12–18; TEMP 97.5–98.1; O2SAT 93–95
[2024-07-23] MEDS: CHOLECALCIFEROL (VITD3) 1,000UNIT=25mCg TAB PO SCH (09:33)
[2024-07-23] MEDS: ASPirin 81 mg TAB PO SCH (09:34)
[2024-07-23] MEDS: CLOPIDOGREL BISULFATE 75 MG TAB PO SCH (09:34)
[2024-07-23] MEDS: amLODIPine BESYLATE 5 MG TAB PO SCH (09:34)
[2024-07-23] MEDS: VALSARTAN 80 MG TAB PO SCH (09:35)
--- NOTE | 2024-07-23 11:46 | DVHPN2 ---
Subjective Doing well No symptoms No abdominal pain No nausea or vomiting Complains of neuropathy pain in his bilateral feet Changes from previous H/P or p: Changes Eyes: No Pain, No Vision change, No Conjunctivae inflammation, No Eyelid inflammation, No Other, No Redness ENT: No Ear pain, No Ear discharge, No Nose pain, No Nose discharge, No Nose congestion, No Mouth pain, No Mouth swelling, No Throat pain, No Throat swelling, No Other Cardiovascular: No Chest Pain, No Palpitations, No Orthopnea, No Paroxysmal Noc. Dyspnea, No Edema, No Lt Headedness, No Other Respiratory: No Cough, No Dry, No Shortness of breath, No SOB with excertion, No Wheezing, No Hemoptysis, No Pleuritic Pain, No Sputum, No Other Gastrointestinal: Nausea; No Vomiting; Abdominal Pain; No Diarrhea, No Constipation, No Melena, No Hematochezia, No Other Genitourinary: No Dysuria, No Frequency, No Incontinence, No Hematuria, No Retention, No Other Musculoskeletal: No other, No neck pain, No shoulder pain, No arm pain, No back pain, No hand pain, No leg pain, No foot pain Skin: No Rash, No Lesions, No Jaundice, No Bruising, No Other Objective Vitals Vital Signs Date Time Temp Pulse Resp B/P (MAP) Pulse Ox O2 Delivery O2 Flow Rate FiO2 07/23/24 09:45 61 16 165/62 07/23/24 08:00 Room Air* 0 21 07/23/24 05:00 97.9 94 97.9 Intake/Output Intake and Output 07/23/24 07:00 Intake Total 425 ml Output Total 215 ml Balance 210 ml Intake Oral 425 ml Output Urine Total 215 ml # Voids 2 General Appearance: Alert, Oriented X3, Cooperative, No acute distress, mild distress Lungs: Clear to auscultation, Normal air movement Cardiovascular: Regular rate, Normal S1, Normal S2 Abdomen: Normal bowel sounds, Soft, No tenderness Extremities: No edema Medications Current Medications Medications Dose Ordered Sig/Armando Route Start Time Stop Time Status Last Admin Dose Admin Acetaminophen/ Hydrocodone Bitart 1 tab Q4HP PRN PO 07/21/24 08:15 07/23/24 00:56 1 TAB Ondansetron HCl 4 mg Q4HP PRN IV 07/21/24 08:15 07/22/24 22:02 4 MG Docusate Sodium 100 mg BIDPRN PRN PO 07/21/24 08:15 07/22/24 15:23 100 MG Acetaminophen 650 mg Q6HP PRN PO 07/21/24 08:15 Morphine Sulfate 2 mg Q4HPRN PRN IV 07/21/24 08:15 Cancel Morphine Sulfate 2 mg Q4HPRN PRN IV 07/22/24 13:30 07/23/24 09:45 2 MG Gabapentin 100 mg TID PO 07/22/24 22:00 07/23/24 05:58 100 MG Amlodipine Besylate 5 mg DAILY PO 07/23/24 10:00 07/23/24 09:34 5 MG Hydralazine HCl 10 mg Q6HP PRN IV 07/22/24 14:15 07/22/24 20:06 10 MG Valsartan 160 mg DAILY PO 07/23/24 10:00 Cholecalciferol 2,000 unit DAILY PO 07/23/24 10:00 07/23/24 09:33 2,000 UNIT Sucralfate 1 gm BID@0600,2200 PO 07/22/24 22:00 07/22/24 21:31 1 GM Atorvastatin Calcium 10 mg HS PO 07/22/24 22:00 07/22/24 21:31 10 MG Clopidogrel Bisulfate 75 mg DAILY PO 07/23/24 10:00 07/23/24 09:34 75 MG Metoprolol Tartrate 25 mg BID PO 07/22/24 22:00 07/23/24 09:35 25 MG Aspirin 81 mg DAILY PO 07/23/24 10:00 07/23/24 09:34 81 MG Laboratory Results Laboratory Tests 07/22/24 05:36 Urinalysis Test 07/21/24 05:25 Urine Color Colorless (Yellow) Urine Clarity Clear (Clear) Urine pH 6.5 (5.0-9.0) Urine Specific [place] 1.018 (1.001-1.035) Urine Protein Negative (Negative) Urine Ketones Negative (Negative) Urine Blood Negative /uL (Negative) Urine Nitrite Negative (Negative) Urine Bilirubin Negative (Negative) Urine Urobilinogen Normal mg/dL (Negative) Urine Leukocyte Esterase 2+ /uL (Negative) Urine RBC 1 /hpf (0 - 3) Urine Microscopic WBC 17 /HPF (0-3) H Urine Squamous Epithelial Cells Few /hpf (<5) Urine Transitional Epithelial Cells Few /hpf (<2) Urine Bacteria None seen /hpf (None Seen) Urine Glucose Normal mg/dL (Normal) Microbiology Microbiology Date/Time Source Procedure Growth Status 07/21/24 14:48 Nose MRSA Screen - Final Complete Assessment/Plan Assessment/Plan Abdominal pain Gallbladder distention and sludge Rule out cholecystitis Diverticulosis Large right inguinal hernia no obstruction Benign prostatic hypertrophy Recent cellulitis of the right leg and hematoma status post incision and drainage of the hematoma Generalized weakness Hypertension Severe aortic stenosis Severe pulmonary hypertension Diastolic heart failure, chronic Coronary artery disease Hard of hearing Chronic kidney disease Plan Order HIDA scan Resume the home medications including his hypertensive medications and Neurontin Pain management IV fluids Start his diet if the HIDA scan is negative Discussed with the caregiver at the bedside Monitor the patient closely The rest of the management will depend on the hospital course 07/23/2024: HIDA scan is pending is going to be done today He is complaining of neuropathy pain in his feet: Increase gabapentin to 300 mg t.i.d. Continue [place] p.r.n. Order physical therapy He would like to go back to SNF for rehab if he qualifies The rest of the management will depend on the hospital course and the result of the HIDA scan Plan discussed with: Patient My Orders Orders - CHONG CANADA MD Procedure Category Date Status Time Morphine Sulfate PHA 07/22/24 In Process Injection 13:30 Gabapentin Capsule PHA 07/22/24 In Process (Neurontin Capsule) 22:00 Amlodipine Tablet PHA 07/23/24 In Process (Norvasc Tablet) 10:00 Hydralazine Injection PHA 07/22/24 In Process (Apresoline Inject 14:15 Valsartan (Diovan) PHA 07/23/24 In Process 10:00 Cholecalciferol PHA 07/23/24 In Process Tablet (Vitamin D3 10:00 Sucralfate Susp PHA 07/22/24 In Process (Carafate Susp) 22:00 Atorvastatin (Lipitor) PHA 07/22/24 In Process 22:00 Clopidogrel Bisulfate PHA 07/23/24 In Process (Plavix) 10:00 Metoprolol Tartrate PHA 07/22/24 In Process Tablet (Lopressor Ta 22:00 Aspirin Tablet PHA 07/23/24 In Process 10:00 Date of Service: Jul 23, 2024 Billing Provider: CHONG CANADA MD Common Visit Codes: NOT BILLABLE CHONG CANADA MD Jul 23, 2024 11:46
[2024-07-23] MEDS: GABAPENTIN 300 MG CAP PO SCH (14:56)
--- NOTE | 2024-07-23 20:30 | DVH ---
Procedure: NM NM HIDA SCAN Exam Date: 07/23/2024 01:28 PM Clinical History: abd pain Comparison Study: None Nuclear Medicine Hepatobiliary Scan. Technique: Following the intravenous administration of 6.2 mCi of technetium 99m labeled Choletec multiple plana r abdominal planar images were obtained in anterior projection in 2 minute intervals for minutes . Ri ght lateral images were obtained at 45 minutes after injection. Findings: Gallbladder visualized after 26 minutes. Small bowel demonstrated after 4 hours Impression: 1. No obstruction of the cystic duct. 2. Small bowel not demonstrated for 4 hours.
[2024-07-24] VITALS (8 sets, daily range): BP systolic 92–176; BP diastolic 46–68; PULSE 54–63; RESP 16–20; TEMP 97.8–98.3; O2SAT 92–95
[2024-07-24] MEDS: amLODIPine BESYLATE 5 MG TAB PO ONE (17:59)
[2024-07-24] MEDS: VALSARTAN 80 MG TAB PO ONE (18:00)
--- NOTE | 2024-07-24 21:22 | DVHPN2 ---
Subjective No new symptoms No pain BP is high Changes from previous H/P or p: Changes Eyes: No Pain, No Vision change, No Conjunctivae inflammation, No Eyelid inflammation, No Other, No Redness ENT: No Ear pain, No Ear discharge, No Nose pain, No Nose discharge, No Nose congestion, No Mouth pain, No Mouth swelling, No Throat pain, No Throat swelling, No Other Cardiovascular: No Chest Pain, No Palpitations, No Orthopnea, No Paroxysmal Noc. Dyspnea, No Edema, No Lt Headedness, No Other Respiratory: No Cough, No Dry, No Shortness of breath, No SOB with excertion, No Wheezing, No Hemoptysis, No Pleuritic Pain, No Sputum, No Other Gastrointestinal: Nausea, Abdominal Pain Genitourinary: No Dysuria, No Frequency, No Incontinence, No Hematuria, No Retention, No Other Musculoskeletal: No other, No neck pain, No shoulder pain, No arm pain, No back pain, No hand pain, No leg pain, No foot pain Skin: No Rash, No Lesions, No Jaundice, No Bruising, No Other Objective Vitals Vital Signs Date Time Temp Pulse Resp B/P (MAP) Pulse Ox O2 Delivery O2 Flow Rate FiO2 07/24/24 20:00 95 Room Air* 0 21 07/24/24 18:00 140/60 07/24/24 17:00 97.8 63 20 97.8 Intake/Output Intake and Output 07/24/24 07:00 Intake Total 840 ml Output Total 1580 ml Balance -740 ml Intake Oral 840 ml Output Urine Total 1580 ml General Appearance: Alert, Oriented X3, Cooperative, No acute distress, mild distress Lungs: Clear to auscultation, Normal air movement Cardiovascular: Regular rate, Normal S1, Normal S2 Abdomen: Normal bowel sounds, Soft, No tenderness Extremities: No edema Medications Current Medications Medications Dose Ordered Sig/Armando Route Start Time Stop Time Status Last Admin Dose Admin Acetaminophen/ Hydrocodone Bitart 1 tab Q4HP PRN PO 07/21/24 08:15 07/23/24 00:56 1 TAB Ondansetron HCl 4 mg Q4HP PRN IV 07/21/24 08:15 07/22/24 22:02 4 MG Docusate Sodium 100 mg BIDPRN PRN PO 07/21/24 08:15 07/22/24 15:23 100 MG Acetaminophen 650 mg Q6HP PRN PO 07/21/24 08:15 Morphine Sulfate 2 mg Q4HPRN PRN IV 07/21/24 08:15 Cancel Morphine Sulfate 2 mg Q4HPRN PRN IV 07/22/24 13:30 07/24/24 14:59 2 MG Hydralazine HCl 10 mg Q6HP PRN IV 07/22/24 14:15 07/24/24 08:31 10 MG Cholecalciferol 2,000 unit DAILY PO 07/23/24 10:00 07/24/24 11:14 2,000 UNIT Sucralfate 1 gm BID@0600,2200 PO 07/22/24 22:00 07/22/24 21:31 1 GM Atorvastatin Calcium 10 mg HS PO 07/22/24 22:00 07/23/24 22:35 10 MG Clopidogrel Bisulfate 75 mg DAILY PO 07/23/24 10:00 07/24/24 11:15 75 MG Metoprolol Tartrate 25 mg BID PO 07/22/24 22:00 07/24/24 11:16 25 MG Aspirin 81 mg DAILY PO 07/23/24 10:00 07/24/24 11:16 81 MG Gabapentin 300 mg TID PO 07/23/24 14:00 07/24/24 14:57 300 MG Amlodipine Besylate 10 mg DAILY PO 07/25/24 10:00 Valsartan 320 mg DAILY PO 07/25/24 10:00 Laboratory Results Laboratory Tests 07/22/24 05:36 Urinalysis Test 07/21/24 05:25 Urine Color Colorless (Yellow) Urine Clarity Clear (Clear) Urine pH 6.5 (5.0-9.0) Urine Specific [place] 1.018 (1.001-1.035) Urine Protein Negative (Negative) Urine Ketones Negative (Negative) Urine Blood Negative /uL (Negative) Urine Nitrite Negative (Negative) Urine Bilirubin Negative (Negative) Urine Urobilinogen Normal mg/dL (Negative) Urine Leukocyte Esterase 2+ /uL (Negative) Urine RBC 1 /hpf (0 - 3) Urine Microscopic WBC 17 /HPF (0-3) H Urine Squamous Epithelial Cells Few /hpf (<5) Urine Transitional Epithelial Cells Few /hpf (<2) Urine Bacteria None seen /hpf (None Seen) Urine Glucose Normal mg/dL (Normal) Microbiology Microbiology Date/Time Source Procedure Growth Status 07/21/24 14:48 Nose MRSA Screen - Final Complete Assessment/Plan Assessment/Plan Abdominal pain Gallbladder distention and sludge Rule out cholecystitis Diverticulosis Large right inguinal hernia no obstruction Benign prostatic hypertrophy Recent cellulitis of the right leg and hematoma status post incision and drainage of the hematoma Generalized weakness Hypertension Severe aortic stenosis Severe pulmonary hypertension Diastolic heart failure, chronic Coronary artery disease Hard of hearing Chronic kidney disease Plan Order HIDA scan Resume the home medications including his hypertensive medications and Neurontin Pain management IV fluids Start his diet if the HIDA scan is negative Discussed with the caregiver at the bedside Monitor the patient closely The rest of the management will depend on the hospital course 07/23/2024: HIDA scan is pending is going to be done today He is complaining of neuropathy pain in his feet: Increase gabapentin to 300 mg t.i.d. Continue [place] p.r.n. Order physical therapy He would like to go back to SNF for rehab if he qualifies The rest of the management will depend on the hospital course and the result of the HIDA scan 07/24/24: HTN: Increase amlodipine and valsartan Abd pain: HIDA neg Weakness: PT eval DC planning tomorrow Plan discussed with: Patient My Orders Orders - CHONG CANADA MD Procedure Category Date Status Time Amlodipine Tablet PHA 07/25/24 In Process (Norvasc Tablet) 10:00 Valsartan (Diovan) PHA 07/25/24 In Process 10:00 Date of Service: Jul 24, 2024 Billing Provider: CHONG CANADA MD Common Visit Codes: NOT BILLABLE CHONG CANADA MD Jul 24, 2024 21:22
[2024-07-25 05:00] VITALS: BP 175/86; PULSE 61; RESP 18; TEMP 98.1; O2SAT 95
[2024-07-25 08:00] VITALS: RESP 18; O2SAT 94
[2024-07-25] MEDS: amLODIPine BESYLATE 5 MG TAB PO SCH (08:49)
[2024-07-25] MEDS: VALSARTAN 80 MG TAB PO SCH (08:51)
[2024-07-25 09:00] VITALS: BP 166/58; PULSE 60; RESP 15; TEMP 97.8; O2SAT 96
[2024-07-25] MEDS ORDERED: GABA300T4 PO (10:14)
[2024-07-25] MEDS ORDERED: AMLO1TAB23 PO (10:18)
--- NOTE | 2024-07-25 10:18 | DVHDS2 ---
Discharge Summary Date of Admission Jul 21, 2024 at 08:14 Date of Discharge: Jul 25, 2024 Labs/Diagnostic Data: Laboratory Results Test 07/22/24 05:36 07/21/24 06:33 07/21/24 05:25 07/21/24 03:00 White Blood Count 6.6 10^3/uL (4.4-10.8) Red Blood Count 4.22 10^6/uL (4.5-5.90) Hemoglobin 12.1 g/dL (13.5-17.5) Hematocrit 36.1 % (41.0-53.0) Mean Corpuscular Volume 85.5 fL (80.0-100.0) Mean Corpuscular Hemoglobin 28.8 pg (28.0-32.0) Mean Corpuscular Hemoglobin Concent 33.7 g/dL (32.0-36.0) Red Cell Distribution Width 15.0 % (11.8-14.3) Platelet Count 195 10^3/uL (140-450) Mean Platelet Volume 8.7 fL (6.9-10.8) Neutrophils (%) (Auto) 69.9 % (37.0-80.0) Lymphocytes (%) (Auto) 17.1 % (10.0-50.0) Monocytes (%) (Auto) 8.0 % (0.0-12.0) Eosinophils (%) (Auto) 3.5 % (0.0-7.0) Basophils (%) (Auto) 1.5 % (0.0-2.0) Neutrophils # (Auto) 4.6 10 ^3/uL (1.6-8.6) Lymphocytes # (Auto) 1.1 10 ^3/uL (0.4-5.4) Monocytes # (Auto) 0.5 10 ^3/uL (0-1.3) Eosinophils # (Auto) 0.2 10 ^3/uL (0-0.8) Basophils # (Auto) 0.1 10 ^3/uL (0-0.2) Nucleated Red Blood Cells 0.0 % Sodium Level 143 mmol/L (136-145) Potassium Level 3.8 mmol/L (3.5-5.1) Chloride Level 110 mmol/L (98-107) Carbon Dioxide Level 25 mmol/L (20-31) Anion Gap 8 (5-15) Blood Urea Nitrogen 23 mg/dL (9-23) Creatinine 1.31 mg/dL (0.700-1.30) Glomerular Filtration Rate Calc 52 mL/min (>90) BUN/Creatinine Ratio 17.6 (10.0-20.0) Serum Glucose 124 mg/dL (74-106) Calcium Level 10.6 mg/dL (8.7-10.4) Total Bilirubin 0.6 mg/dL (0.2-1.0) Aspartate Amino Transferase (AST) 18 U/L (13-40) Alanine Aminotransferase (ALT) 25 U/L (7-40) Alkaline Phosphatase 90 U/L (46-116) Total Protein 5.8 g/dL (5.7-8.2) Albumin 3.7 g/dL (3.2-4.8) Troponin I High Sensitivity 25 ng/L (</=54) Urine Color Colorless (Yellow) Urine Clarity Clear (Clear) Urine pH 6.5 (5.0-9.0) Urine Specific [place] 1.018 (1.001-1.035) Urine Protein Negative (Negative) Urine Ketones Negative (Negative) Urine Blood Negative /uL (Negative) Urine Nitrite Negative (Negative) Urine Bilirubin Negative (Negative) Urine Urobilinogen Normal mg/dL (Negative) Urine Leukocyte Esterase 2+ /uL (Negative) Urine RBC 1 /hpf (0 - 3) Urine Microscopic WBC 17 /HPF (0-3) Urine Squamous Epithelial Cells Few /hpf (<5) Urine Transitional Epithelial Cells Few /hpf (<2) Urine Bacteria None seen /hpf (None Seen) Urine Glucose Normal mg/dL (Normal) B-Type Natriuretic Peptide 130.63 pg/mL (0-100) Lipase 45 U/L (12-53) Other Laboratory Tests 07/22/24 05:36 Brief Hx & Hospital Course: Final diagnoses: Abdominal pain, undetermined etiology, most likely due to diverticulosis Gallbladder distention and sludge, no acute cholecystitis Cholecystitis was ruled out Diverticulosis, no diverticulitis Large right inguinal hernia no obstruction Benign prostatic hypertrophy Recent cellulitis of the right leg and hematoma status post incision and drainage of the hematoma Generalized weakness Hypertension Severe aortic stenosis Severe pulmonary hypertension Diastolic heart failure, chronic Coronary artery disease Hard of hearing Chronic kidney disease 88-year-old male who was admitted initially for abdominal pain CT scan and ultrasound of the gallbladder shows possible gallbladder distention and therefore evaluation was done for possible cholecystitis His liver enzymes were normal HIDA scan was done was negative After admission he did not have any abdominal pain and was tolerating his diet and abdomen was soft He later complained of neuropathy pain in his feet, he was taking Neurontin 100 mg 3 times a day own at home so it was increased to 300 t.i.d. He also takes [place] for generalized pain Overall the patient is doing well except for generalized weakness We asked Physical therapy to see him before discharge Last admission he went to a usp facility for rehab but this time his caregiver a prefers to take him home directly and therefore we will order home health safety evaluation at home Increase his gabapentin to 300 mg t.i.d. at home His valsartan was continued at 320 mg daily Blood pressure was still high and therefore amlodipine was increased to 10 mg daily We will also increase his metoprolol up to 50 mg twice a day which is his home dose At home he should continue metoprolol 50 mg twice a day and amlodipine 10 mg daily and valsartan 320 mg daily He should stopped taking enalapril since he is on valsartan Condition at Discharge: Stable Final Diagnosis/Problems List Abdominal pain Gallbladder distention and sludge Rule out cholecystitis Diverticulosis Large right inguinal hernia no obstruction Benign prostatic hypertrophy Recent cellulitis of the right leg and hematoma status post incision and drainage of the hematoma Generalized weakness Hypertension Severe aortic stenosis Severe pulmonary hypertension Diastolic heart failure, chronic Coronary artery disease Hard of hearing Chronic kidney disease Discharge Disposition: Home SNF Discharge Will this Physician continue t: No Discharge Statement: "Patient was advised to return to the ER or call 911 if any headaches, dizziness, shortness of breath, chest pain, abdominal pain, bleeding, fevers, or worsening of medical condition. Patient was counseled about treatment plan, medications, possible side effects, patientverbalized understanding. All questions were answered to the best of my ability. This discharge took greater then 30 minutes in planning, reviewing documentation, counseling the patient, and discussing with other team members." ASSESSMENT ASSESSMENT Assessment Date of Service: Jul 25, 2024 Billing Provider: CHONG CANADA MD Common Visit Codes: NOT BILLABLE CHONG CANADA MD Jul 25, 2024 10:18
[2024-07-25 10:35] VITALS: BP 149/70; PULSE 57; RESP 16; O2SAT 94
[2024-07-25] MEDS: METOPROLOL TARTRATE 25 MG TAB PO ONE (10:37)
[2024-07-25 13:00] VITALS: BP 143/41; PULSE 60; RESP 14; TEMP 98.1; O2SAT 94
[2024-07-25] MEDS: TRIAMTERENE/HCTZ 37.5/25 MG CAP/TAB PO ONE (13:02)
[2024-07-25 17:22] VITALS: BP 147/50; PULSE 64; RESP 17
[2024-07-25] MEDS ORDERED: METOPROLOL TARTRATE 25 MG TAB PO SCH (22:00)
[2024-07-26] MEDS ORDERED: TRIAMTERENE/HCTZ 37.5/25 MG CAP/TAB PO SCH (10:00)
== END 2024-07-25 17:35 | disposition home health service (06) | DRG 392 ==
LOC: EDBD 02:24 → ER 02:28 → OVERFLOW 08:14 → EAST 11:38
PROVIDERS: ADMIT Internal Medicine Geriatric Medicine; ATTEND Internal Medicine Geriatric Medicine
DX: K57.30 Diverticulosis of large intestine without perforation or abscess without bleeding (principal); I13.0 Hypertensive heart and chronic kidney disease with heart failure and stage 1 through stage 4 chronic kidney disease, or unspecified chronic kidney disease; I50.32 Chronic diastolic (congestive) heart failure; K81.9 Cholecystitis, unspecified; I27.20 Pulmonary hypertension, unspecified; I35.0 Nonrheumatic aortic (valve) stenosis; N18.9 Chronic kidney disease, unspecified; K40.90 Unilateral inguinal hernia, without obstruction or gangrene, not specified as recurrent; K82.8 Other specified diseases of gallbladder; E86.0 Dehydration; I25.10 Atherosclerotic heart disease of native coronary artery without angina pectoris; N40.0 Benign prostatic hyperplasia without lower urinary tract symptoms; G62.9 Polyneuropathy, unspecified; Z79.899 Other long term (current) drug therapy; Z95.5 Presence of coronary angioplasty implant and graft
CPT/HCPCS: 36415; 71045; 74177; 76700; 78226; 80053; 81001; 83690; 83880; 84484; 85025; 87081; 93005; 96360; 97163; G0378; J2405